=== PATIENT | male | born 1965 | race Caucasian/White ===

== ENCOUNTER 2017-10-17 13:35 | Emergency (ER) | END 2017-10-17 21:37 | disposition home or self-care (01) ==

== ENCOUNTER 2018-09-04 08:46 | Inpatient (IN) | payer OTHER ==
[~2018-09-04] VITALS: Ht 165.1 cm; Wt 65.0 kg
[~2018-09-04 08:46] MED LIST: BENZ-6 PO; FER325 PO; FOLI-49 PO; IBUP-1542 PO; MECL25TA2 PO; PANT40TA4 PO; PROP20TA4 PO; SPIR100T4 PO; THIA100T56 PO
[2018-09-04] MEDS ORDERED: SOD CHLORIDE 0.9% 1,000 ML IV STA (08:54)
[2018-09-04] MEDS ORDERED: LORAZEPAM 2 MG INJ IV ONE (09:00)
[2018-09-04] MEDS ORDERED: ONDANSETRON 4 MG INJ IV PRN ×2 (12:00→16:00)
[2018-09-04] MEDS ORDERED: LACTULOSE 30ML CUP PO ONE (12:00)
[2018-09-04] MEDS ORDERED: ACETAMINOPHEN 325 MG TAB PO PRN (12:00)
--- NOTE | 2018-09-04 13:32 | ERD ---
ER Documentation Chief Complaint Chief Complaint BIB RA FOR EVAL OF GENERALIZED WEAKNESS. PT A&OX4 HPI Patient is a 52-year-old male with coronary disease who presents with weakness. The patient has had weakness for the past 3 days. He was brought in by ambulance. He came from the street as he is homeless. A bystander called 911. He feels weak all over. He says "I could not get up". He denies alcohol use. He was recently admitted and was discharged from the hospital yesterday. Upon review of old medical records this is the patient's sixth visit to the ER since 2011. He does not remember the name of his primary doctor. ROS All systems reviewed and are negative except as per history of present illness. Medications Home Meds Active Scripts Spironolactone* (Spironolactone*) 100 Mg Tablet, 100 MG PO DAILY for 30 Days, TAB Prov:TIERRA FREEMAN 09/03/18 Propranolol Hcl* (Propranolol Hcl*) 20 Mg Tablet, 20 MG PO TID for 30 Days, TAB Prov:TIERRA FREEMAN 09/03/18 Pantoprazole* (Pantoprazole*) 40 Mg Tablet.dr, 40 MG PO DAILY for 30 Days Prov:TIERRA FREEMAN 09/03/18 Thiamine* (Vitamin B-1*) 100 Mg Tablet, 100 MG PO DAILY for 30 Days, TAB Prov:NATHANIEL ESCOBAR 01/08/16 Meclizine Hcl* (Antivert*) 25 Mg Tablet, 25 MG PO TID, #60 TAB Prov:NATHANIEL ESCOBAR 01/08/16 Folic Acid* (Folic Acid*) 1 Mg Tablet, 1 MG PO DAILY for 30 Days, TAB Prov:NATHANIEL ESCOBAR 01/08/16 Ferrous Sulfate* (Ferrous Sulfate*) 325 Mg Tabec, 325 MG PO TID for 30 Days, TAB Prov:NATHANIEL ESCOBAR 01/08/16 Discontinued Reported Medications Acetaminophen/Hydrocodone (Vicodin) 1 Tab Tab, 1 TAB PO PRN 12/02/11 Discontinued Scripts Benzonatate* (Tessalon Perle*) 100 Mg Capsule, 100 MG PO Q8H PRN for COUGH for 3 Days, #10 CAP Prov:IRAM,FRANCY 10/17/17 Ibuprofen* (Motrin*) 600 Mg Tab, 600 MG PO Q6, #30 TAB Prov:IRAM,FRANCY 10/17/17 Azithromycin* (Zithromax*) 250 Mg Tablet, 250 MG PO .EDGARD DIRECTED, #6 TAB TAKE 500 MG (2 TABS) THE FIRST DAY THEN 250 MG (1 TAB) DAYS 2-5 Prov:IRAM,FRANCY 10/17/17 Clarithromycin* (Clarithromycin*) 500 Mg Tablet, 500 MG PO BID for 2 Days, TAB Prov:SADEORA,NATHANIEL 01/08/16 Amoxicillin* (Amoxicillin*) 500 Mg Cap, 1000 MG PO BID for 2 Days, CAP Prov:SADEORA,NATHANIEL 01/08/16 Allergies Allergies: Coded Allergies: No Known Allergy (Unverified , 09/04/18) PMhx/Soc History of Surgery: No Anesthesia Reaction: No Hx Neurological Disorder: No Hx Respiratory Disorders: No Hx Cardiac Disorders: No Hx Psychiatric Problems: No Hx Miscellaneous Medical Probl: Yes (ALCOHOLIC LIVER CIRRHOSIS) Hx Alcohol Use: Yes Hx Substance Use: Yes (MARIJUANA) Hx Tobacco Use: Yes Smoking Status: Current every day smoker FmHx Family History: No diabetes Physical Exam Vitals Vital Signs Date Temp Pulse Resp B/P (MAP) Pulse Ox O2 O2 Flow FiO2 Time Delivery Rate 09/04/18 97.6 98 15 104/62 100 Room Air 12:38 (76) 09/04/18 97.2 94 16 114/66 99 Room Air 10:46 (82) 09/04/18 97.2 89 16 124/70 99 08:57 (88) Physical Exam Const: Confused Head: Atraumatic Eyes: Normal Conjunctiva ENT: Normal External Ears, Nose and Mouth. Neck: Full range of motion. No meningismus. Resp: Clear to auscultation bilaterally Cardio: Regular rate and rhythm, no murmurs Abd: Soft, non tender, non distended. Normal bowel sounds Skin: No petechiae or rashes Back: No midline or flank tenderness Ext: No cyanosis, or edema Neur: Awake but confused, moves all 4 extremities Result Diagram: 09/04/18 0910 09/04/18 0910 Results 24 hrs Laboratory Tests Test 09/04/18 09:10 09/04/18 10:30 White Blood Count 9.4 10^3/ul Red Blood Count 3.36 10^6/ul Hemoglobin 10.6 g/dl Hematocrit 32.3 % Mean Corpuscular Volume 96.1 fl Mean Corpuscular Hemoglobin 31.5 pg Mean Corpuscular Hemoglobin Concent 32.8 g/dl Red Cell Distribution Width 17.3 % Platelet Count 69 10^3/UL Mean Platelet Volume 9.4 fl Immature Granulocytes % 0.400 % Neutrophils % 78.2 % Segmented Neutrophils % (Manual) 85 % Band Neutrophils % (Manual) 7 % Lymphocytes % 7.3 % Lymphocytes % (Manual) 3 % Monocytes % 13.8 % Monocytes % (Manual) 4 % Eosinophils % 0.0 % Basophils % 0.3 % Basophils % (Manual) 1 % Nucleated Red Blood Cells % 0.0 /100WBC Immature Granulocytes # 0.040 10^3/ul Neutrophils # 7.4 10^3/ul Neutrophils # (Manual) 8.0 10^3/ul Band Neutrophils # 0.6 10^3/ul Lymphocytes (Manual) 0.2 10^3/ul Lymphocytes # 0.7 10^3/ul Monocytes # 1.3 10^3/ul Monocytes # (Manual) 0.3 10^3/ul Eosinophils # 0.0 10^3/ul Basophils # 0.0 10^3/ul Basophils # (Manual) 0.0 10^3/ul Nucleated Red Blood Cells # 0.0 10^3/ul Platelet Estimate SIG DECREASED Polychromasia 3+ Poikilocytosis 1+ Anisocytosis 2+ Macrocytosis 2+ Target Cells 1+ Prothrombin Time 20.0 Sec Prothrombin Time Ratio 1.6 INR International Normalized Ratio 1.69 Activated Partial Thromboplast Time 41.1 Sec Sodium Level 138 mmol/L Potassium Level 4.4 mmol/L Chloride Level 106 mmol/L Carbon Dioxide Level 19 mmol/L Anion Gap 13 Blood Urea Nitrogen 16 mg/dl Creatinine 0.75 mg/dl Est Glomerular Filtrat Rate mL/min > 60 mL/min Glucose Level 91 mg/dl Calcium Level 9.2 mg/dl Troponin I 0.012 ng/ml Triglycerides Level 60 mg/dl Cholesterol Level 155 mg/dl LDL Cholesterol, Calculated 113 mg/dl HDL Cholesterol 30 mg/dl Cholesterol/HDL Ratio 5.1 RATIO Hemoglobin A1c 4.5 % Ammonia 41 umol/l Ethyl Alcohol Level < 10.0 mg/dl Current Medications Medications Dose Sig/Dequan Start Time Status Last (Trade) Ordered Route PRN Stop Time Admin Dose Reason Admin Sodium 1,000 ml @ Q1H STAT 09/04/18 DC 09/04/18 Chloride 1,000 mls/hr IV 08:54 09/04/18 09:20 09:53 Lorazepam 1 mg ONCE ONCE 09/04/18 DC 09/04/18 (Ativan) IV 09:00 09/04/18 09:19 09:01 Lactulose 20 gm ONCE ONCE 09/04/18 DC 09/04/18 (Enulose) PO 12:00 09/04/18 12:36 12:01 Ondansetron 4 mg BRIDGE ORDER 09/04/18 HCl (Zofran PRN IV 12:00 09/05/18 Inj) NAUSEA/VOMITI 11:59 NG 650 mg ER BRIDGE 09/04/18 Acetaminophen PRN PO 12:00 09/05/18 (Tylenol .MILD PAIN 11:59 Tab) 1-3 OR TEMP Procedures/MDM EKG read by me: Rate/Rhythm: Regular rate and rhythm at a normal rate Intervals: Normal Impression: No evidence of ischemia or arrhythmia CT brain read by radiology. Patient is a 52-year-old male with coronary disease who presents with weakness. He was found to have hyperammonemia likely related to his cirrhosis. I believe this is likely the cause of the patient's weakness and confusion. The patient was given lactulose. He will be admitted to the care of the panel team to a medical surgical inpatient bed. He can return for any worsening symptoms. I doubt sepsis or intra-cranial bleed or mass. Departure Diagnosis: Primary Impression: Hyperammonemia Additional Impression: Acute weakness Condition: DALE Farris MD Sep 04, 2018 13:32
[2018-09-04 15:17] VITALS: Ht 165.1 cm; Wt 65.0 kg
[2018-09-04 15:41] VITALS: BP 100/55; RESP 21
[2018-09-04] MEDS ORDERED: CHLORDIAZEPOXIDE 25 MG CAP PO SCH (16:00)
[2018-09-04] MEDS ORDERED: ZOLPIDEM 5 MG TAB PO PRN (16:00)
--- NOTE | 2018-09-04 16:41 | HP ---
DATE OF ADMISSION: 09/04/2018 PRESENTING COMPLAINT: Severe lethargy and alteration in mental status. HISTORY OF PRESENTING COMPLAINT: Mr. Slade Harris is a 52-year-old male who was discharged from [facility] yesterday per his request after he had presented with chest pain and was worked up extensivel y for that. Of note is that the patient is a chronic alcoholic, homeless with hepatic cirrhosis and while he was in-house the last time, he underwent a stress test that was negative for reversible defi cits. He also underwent paracentesis, for which they got 5 liters of fluid. They attempted to place him in a residential, but the patient declined this and he requested to return to the streets with homel ess state. At the time of discharge per documentation, the patient was advised to follow upon discha e due to the fact that he was still somewhat debilitated, but he chose to leave. Today, 911 was ca lled by a bystander who found him lying on the street per my understanding. The patient was confused and lethargic. At this time, he is unable to give me a lot of information due to severe lethargy. He will arouse though with significant stimulation, answer questions with 1 word but that is as far w e can get. From my standing, since the patient just left the hospital yesterday, there has been no h istory of recent fever, no cough, no shortness of breath. PAST MEDICAL HISTORY: 1. Hypertension. 2. Alcoholic liver cirrhosis. 3. Chronic thrombocytopenia. 4. Recurrent ascites. 5. Homelessness. 6. Debility. PAST SURGICAL HISTORY: None. ALLERGIES: THE PATIENT HAS NO KNOWN DRUG ALLERGIES. SOCIAL HISTORY: Positive for alcohol abuse, though the patient states that his last drink according to director social's notes was just about a month ago. HOME MEDICATIONS: Reviewed and reconciled. PHYSICAL EXAMINATION VITAL SIGNS: Temperature 97.6, pulse 98, respirations 16, blood pressure 104/62, saturations 100% on room air. GENERAL: Lethargic but arousable. Once aroused, oriented to self, place and person, but falls back to sleep very easily. HEENT: Head is normocephalic without evidence of trauma. Pupils are equal and reactive. There is p ositive scleral icterus. Mild conjunctival pallor. Mucous membranes are moist. Posterior pharynx i s clear of erythema or exudate. NECK: Supple without JVD or adenopathy. CHEST: Diminished breath sounds, but clear to auscultation. ABDOMEN: Mildly distended, soft, does not seem overtly tender. Hypoactive bowel sounds. EXTREMITIES: Positive for edema bilaterally, mild. PSYCHIATRIC: Calm, cooperative with exam. NEUROLOGIC: Lethargic, gait not assessed. The patient was noted to move all 4 extremities spontaneo usly. SKIN: Mildly jaundiced. LABORATORY VALUES: Today, basic metabolic profile was unremarkable. Ammonia level was high at 41. On his hematology, there are no acute findings from yesterday. He has a chronic normocytic anemia wi th chronic thrombocytopenia. However, there is bandemia and neutrophil predominance noted on the shahla dies from today. IMAGING STUDIES: A chest x-ray that was done in the emergency room shows mild left basilar atelectas is and a CT scan of the brain shows no acute pathology, chronic microvascular ischemic changes and ch ronic calcification in the fourth ventricle consistent with sequelae of neurocysticercosis. DIAGNOSTIC DATA: EKG: Normal sinus rhythm. ASSESSMENT: 1. Severe lethargy and alteration in mental status likely secondary to hepatic encephalopathy. 2. Rule out underlying left lower lobe pneumonia in the setting of neutrophilia and bandemia, which could also be related to aspiration. 3. Chronic alcoholic cirrhosis with chronic thrombocytopenia, mild jaundice and coagulopathy. 4. Homeless. 5. Chronic lethargy and debility. PLAN: The patient is to be admitted, treated for hepatic encephalopathy with lactulose therapy. I w ill hold off on antibiotics for now as I do not have concrete signs of infection and just monitor sym ptomatically blood and urine cultures. Lactulose therapy may precipitate diarrhea; however the patient had just recently been hospitalized so we will order a C. diff assay if patient does develop that. Keep him n.p.o. for now, get a speech therapy as well as physical therapy evaluation prior to commencing diet. Resume his home medications as tolerated. Further interventions will depend on hi s clinical course. We will also provide a banana bag supplementation as well. This plan of care been reviewed with nursing staff in detail. Questions have been answered. Dictated By: AJAY SAUCEDA MD, BA/NTS Conf#: [id number] DID#: [id number] CC: PITER [employer]ATHERS;*End*
[2018-09-04] MEDS ORDERED: MULTIVITAMINS 10 ML, THIAMINE 100 MG, FOLIC ACID 1 MG in SOD CHLORIDE 0.9% 1,000 ML IVPB SCH (17:00)
[2018-09-04] MEDS: FAMOTIDINE 20 MG INJ IV SCH (17:06)
[2018-09-04] MEDS: LACTULOSE 30ML CUP PO SCH (17:06)
[2018-09-04] MEDS: DOCUSATE SODIUM 100 MG CAP PO SCH (17:06)
[2018-09-04 20:00] VITALS: BP 127/59; PULSE 94; RESP 20
[2018-09-05] MEDS: FAMOTIDINE 20 MG INJ IV SCH (00:18)
[2018-09-05] MEDS: DEXTROSE 5%-0.45% NACL 1,000 ML IV SCH ×4 (00:18→23:00)
[2018-09-05] MEDS: LACTULOSE 30ML CUP PO SCH ×4 (00:18→17:49)
[2018-09-05] MEDS: DOCUSATE SODIUM 100 MG CAP PO SCH ×3 (00:18→21:00)
[2018-09-05 02:00] VITALS: BP 118/72; PULSE 99; RESP 18
[2018-09-05] MEDS: PANTOPRAZOLE (EC) 40 MG TAB PO SCH (06:17)
[2018-09-05 08:00] VITALS: BP 98/56; PULSE 91; RESP 18
[2018-09-05] MEDS: THIAMINE 100 MG TAB PO SCH (08:55)
[2018-09-05] MEDS: MULTIVITAMINS THERAPEUTIC TAB PO SCH (08:55)
[2018-09-05] MEDS: FOLIC ACID 1 MG TAB PO SCH (08:55)
[2018-09-05] MEDS ORDERED: INFLUENZA VIRUS VACCINE 0.5 ML (DISPENSING) IM* ONE (09:00)
[2018-09-05] MEDS ORDERED: POTASSIUM CHLORIDE (SR) 20 MEQ TAB PO STA (12:23)
--- NOTE | 2018-09-05 12:28 | PN ---
Date/Time of Note Date/Time of Note DATE: 09/05/18 TIME: 12:25 Assessment/Plan VTE [place] [facility] [place]: 3 [place] [facility] [place] SCD contraindicated: patient refusal Pharmacological prophylaxis: heparin Lines/Catheters IV Catheter Type (from [facility]): Peripheral IV Urinary Cath still in place: No Assessment/Plan Problems: (1) Hyperammonemia Status: Acute Comment: Improving with usage of lactulose which is loosening his bowels. (2) Acute weakness Status: Acute Comment: Persistent. He is going to need placement (3) Essential hypertension Status: Chronic Comment: Presently with adequate control. He is off of blood pressure medications if we need to go back on I would use an agent such as nadolol which can also be useful in portal hypertension (4) Debility Status: Chronic Comment: Trying to get him over the sequelae of his alcoholism (5) Alcoholic cirrhosis of liver with ascites Status: Chronic Comment: Noted. (6) Avascular necrosis of bone of left hip Status: Chronic Comment: This is noted in several prior x-rays. I will go ahead and get a regular films believe looked at it directly (7) Cholelithiasis Status: Chronic Comment: Noted. Consideration for HIDA scan in a few days when the patient is feeling better Qualifiers: Cholelithiasis location: gallbladder Cholecystitis presence: without cholecystitis Biliary obstruction: without biliary obstruction Qualified Codes: K80.20 - Calculus of gallbladder without cholecystitis without obstruction (8) Homeless single person Status: Chronic Comment: Social service to assist (9) Alcohol abuse Status: Chronic Comment: Social service to assist. Result Diagram: 09/05/18 0542 09/05/18 0541 Results 24hrs Laboratory Tests Test 09/04/18 16:01 09/05/18 05:41 09/05/18 05:42 Lactic Acid Level 2.0 Sodium Level 139 Potassium Level 3.2 L Chloride Level 109 Carbon Dioxide Level 22 Anion Gap 8 Blood Urea Nitrogen 11 Creatinine 0.66 Est Glomerular Filtrat Rate mL/min > 60 Glucose Level 105 Calcium Level 8.6 Phosphorus Level 3.3 Magnesium Level 1.2 L Total Bilirubin 1.3 Direct Bilirubin 0.10 Indirect Bilirubin 1.2 H Aspartate Amino Transf (AST/SGOT) 101 H Alanine Aminotransferase (ALT/SGPT) 33 Alkaline Phosphatase 100 Ammonia 26 Total Protein 6.4 Albumin 2.3 L Globulin 4.10 H Albumin/Globulin Ratio 0.56 White Blood Count 4.3 #L Red Blood Count 2.86 L Hemoglobin 9.0 L Hematocrit 26.3 L Mean Corpuscular Volume 92.0 Mean Corpuscular Hemoglobin 31.5 Mean Corpuscular Hemoglobin Concent 34.2 Red Cell Distribution Width 17.2 H Platelet Count 66 L Mean Platelet Volume 9.4 Immature Granulocytes % 0.200 Neutrophils % 68.2 Lymphocytes % 16.8 Monocytes % 12.9 H Eosinophils % 1.4 Basophils % 0.5 Nucleated Red Blood Cells % 0.0 Immature Granulocytes # 0.010 Neutrophils # 2.9 Lymphocytes # 0.7 L Monocytes # 0.6 Eosinophils # 0.1 Basophils # 0.0 Nucleated Red Blood Cells # 0.0 Subjective 24 Hr Interval Summary Free Text/Dictation Patient sleeping in bed is able to open his eyes and say hello to me but declines to have much more interview Constitutional: no complaints Exam/Review of Systems Exam Vitals Vital Signs Date Temp Pulse Resp B/P (MAP) Pulse Ox O2 O2 Flow FiO2 Time Delivery Rate 09/05/18 98.0 91 18 98/56 (70) 100 Room Air 08:00 Intake and Output 09/04/18 09/04/18 09/05/18 1414:59 22:59 06:59 IntakeIntake Total 1000 ml BalanceBalance 1000 ml Head: normocephalic, atraumatic Respiratory: clear to auscultation, normal air movement Cardiovascular: regular rate and rhythm, nl pulses Gastrointestinal: soft, nl liver, spleen, non-tender Results Results 24hrs Laboratory Tests Test 09/04/18 16:01 09/05/18 05:41 09/05/18 05:42 Lactic Acid Level 2.0 Sodium Level 139 Potassium Level 3.2 L Chloride Level 109 Carbon Dioxide Level 22 Anion Gap 8 Blood Urea Nitrogen 11 Creatinine 0.66 Est Glomerular Filtrat Rate mL/min > 60 Glucose Level 105 Calcium Level 8.6 Phosphorus Level 3.3 Magnesium Level 1.2 L Total Bilirubin 1.3 Direct Bilirubin 0.10 Indirect Bilirubin 1.2 H Aspartate Amino Transf (AST/SGOT) 101 H Alanine Aminotransferase (ALT/SGPT) 33 Alkaline Phosphatase 100 Ammonia 26 Total Protein 6.4 Albumin 2.3 L Globulin 4.10 H Albumin/Globulin Ratio 0.56 White Blood Count 4.3 #L Red Blood Count 2.86 L Hemoglobin 9.0 L Hematocrit 26.3 L Mean Corpuscular Volume 92.0 Mean Corpuscular Hemoglobin 31.5 Mean Corpuscular Hemoglobin Concent 34.2 Red Cell Distribution Width 17.2 H Platelet Count 66 L Mean Platelet Volume 9.4 Immature Granulocytes % 0.200 Neutrophils % 68.2 Lymphocytes % 16.8 Monocytes % 12.9 H Eosinophils % 1.4 Basophils % 0.5 Nucleated Red Blood Cells % 0.0 Immature Granulocytes # 0.010 Neutrophils # 2.9 Lymphocytes # 0.7 L Monocytes # 0.6 Eosinophils # 0.1 Basophils # 0.0 Nucleated Red Blood Cells # 0.0 Medications Medication Current Medications Dextrose/Sodium Chloride 1,000 ml @ 125 mls/hr Q8H IV Last administered on 09/05/18at 08:55; Admin Dose 125 MLS/HR; Start 09/04/18 at 23:00 Ondansetron HCl (Zofran Inj) 4 mg Q6H PRN IV NAUSEA/VOMITING; Start 09/04/18 at 16:00 Acetaminophen (Tylenol Tab) 650 mg Q6H PRN PO .PAIN 1-3 OR TEMP; Start 09/04/18 at 16:00 Docusate Sodium (Colace) 100 mg Q12 PO Last administered on 09/05/18at 08:55; Admin Dose 100 MG; Start 09/04/18 at 16:00 Zolpidem Tartrate (Ambien) 5 mg QHS PRN PO .INSOMNIA; Start 09/04/18 at 16:00 Pantoprazole (Protonix Tab) 40 mg DAILY@06 PO Last administered on 09/05/18at 06:17; Admin Dose 40 MG; Start 09/05/18 at 06:00 Lorazepam (Ativan) 1 mg Q6H PRN IV agitation / anxiety; Start 09/04/18 at 16:00 Lactulose (Enulose) 20 gm Q6 PO Last administered on 09/05/18at 06:17; Admin Dose 20 GM; Start 09/04/18 at 18:00 Folic Acid (Folic Acid) 1 mg DAILY PO Last administered on 09/05/18at 08:55; Admin Dose 1 MG; Start 09/05/18 at 09:00 Thiamine HCl (Vitamin B1) 100 mg DAILY PO Last administered on 09/05/18at 08:55; Admin Dose 100 MG; Start 09/05/18 at 09:00; Stop 09/12/18 at 08:59 Multivitamins Therapeutic (Theragran) 1 tab DAILY PO Last administered on 09/05/18at 08:55; Admin Dose 1 TAB; Start 09/05/18 at 09:00 Potassium Chloride (Klor-Con 20) 40 meq ONCE STAT PO ; Start 09/05/18 at 12:23; Stop 09/05/18 at 12:24 Potassium Chloride 100 ml @ 50 mls/hr Q2H IVPB ; Start 09/05/18 at 12:30; Stop 09/05/18 at 16:29; Status UNNAY HOPKINS MD Sep 05, 2018 12:28
[2018-09-05 14:00] VITALS: BP 105/60; PULSE 90; RESP 19
[2018-09-05] MEDS: POTASSIUM CHLORIDE 100 ML IVPB SCH ×2 (14:49→17:49)
[2018-09-05] MEDS ORDERED: CHLORDIAZEPOXIDE 25 MG CAP PO SCH (18:00)
[2018-09-05 20:00] VITALS: BP_SYST 114; BP_SYST 144; BP_DIAS 6; BP_DIAS 69; PULSE 97; RESP 17; RESP 18
[2018-09-06] MEDS: LACTULOSE 30ML CUP PO SCH ×5 (01:10→23:15)
[2018-09-06 02:00] VITALS: BP 97/54; PULSE 90; RESP 18
[2018-09-06] MEDS: PANTOPRAZOLE (EC) 40 MG TAB PO SCH (06:29)
[2018-09-06] MEDS: DEXTROSE 5%-0.45% NACL 1,000 ML IV SCH ×3 (07:00→23:15)
[2018-09-06 07:55] VITALS: BP 119/58; PULSE 103; RESP 18
[2018-09-06] MEDS: MULTIVITAMINS THERAPEUTIC TAB PO SCH (10:21)
[2018-09-06] MEDS: FOLIC ACID 1 MG TAB PO SCH (10:21)
[2018-09-06] MEDS: DOCUSATE SODIUM 100 MG CAP PO SCH ×2 (10:21→20:08)
[2018-09-06] MEDS: THIAMINE 100 MG TAB PO SCH (10:21)
--- NOTE | 2018-09-06 13:23 | PN ---
Date/Time of Note Date/Time of Note DATE: 09/06/18 TIME: 13:22 Assessment/Plan VTE Prophylaxis Risk score (from [facility] [place]0 risk: 3 SCD applied (from [facility] [place] No SCD contraindicated: patient refusal Pharmacological prophylaxis: NA/contraindicated Pharm contraindication: blood coag disorder Lines/Catheters IV C[facility]ter Type [facility]from [facility] Mid Line Urinary Cath still in place: No Assessment/Plan Problems: (1) Alcoholic cirrhosis of liver with ascites Status: Chronic Comment: Improving a little bit. Initiate nadolol for portal hypertension at low-dose. (2) Acute weakness Status: Acute Comment: A little bit better. I will try and get him pumped (3) Essential hypertension Status: Chronic Comment: Low-dose nadolol (4) Avascular necrosis of bone of left hip Status: Chronic Comment: Noted. Result Diagram: 09/05/18 0542 09/06/18 0524 Results 24hrs Laboratory Tests Test 09/06/18 03:30 09/06/18 05:24 Urine Opiates Screen Positive Urine Barbiturates Negative Urine Amphetamines Screen Negative Urine Benzodiazepines Screen Positive Urine Cocaine Screen Negative Urine Cannabinoids Positive Sodium Level 140 Potassium Level 4.1 Chloride Level 113 H Carbon Dioxide Level 21 Anion Gap 6 Blood Urea Nitrogen 10 Creatinine 0.75 Est Glomerular Filtrat Rate mL/min > 60 Glucose Level 94 Calcium Level 8.7 Ammonia 30 Subjective 24 Hr Interval Summary Free Text/Dictation Patient reports he is feeling a little bit better today. Constitutional: no complaints Respiratory: no complaints Cardiovascular: no complaints Gastrointestinal: no complaints Genitourinary: no complaints Exam/Review of Systems Exam Vitals Vital Signs Date Temp Pulse Resp B/P (MAP) Pulse Ox O2 O2 Flow FiO2 Time Delivery Rate 09/06/18 98.9 103 18 119/58 99 Room Air 07:55 (78) Intake and Output 09/05/18 09/05/18 09/06/18 1515:00 23:00 07:00 IntakeIntake Total 1000 ml 1100 ml 110 ml BalanceBalance 1000 ml 1100 ml 110 ml Constitutional: alert, oriented Respiratory: clear to auscultation, normal air movement Cardiovascular: regular rate and rhythm, nl pulses Results Results 24hrs Laboratory Tests Test 09/06/18 03:30 09/06/18 05:24 Urine Opiates Screen Positive Urine Barbiturates Negative Urine Amphetamines Screen Negative Urine Benzodiazepines Screen Positive Urine Cocaine Screen Negative Urine Cannabinoids Positive Sodium Level 140 Potassium Level 4.1 Chloride Level 113 H Carbon Dioxide Level 21 Anion Gap 6 Blood Urea Nitrogen 10 Creatinine 0.75 Est Glomerular Filtrat Rate mL/min > 60 Glucose Level 94 Calcium Level 8.7 Ammonia 30 Medications Medication Current Medications Dextrose/Sodium Chloride 1,000 ml @ 125 mls/hr Q8H IV Last administered on 09/05/18 17:51; Admin Dose 125 MLS/HR; Start 09/04/18 at 23:00 Ondansetron HCl (Zofran Inj) 4 mg Q6H PRN IV NAUSEA/VOMITING; Start 09/04/18 at 16:00 Acetaminophen (Tylenol Tab) 650 mg Q6H PRN PO .PAIN 1-3 OR TEMP; Start 09/04/18 at 16:00 Docusate Sodium (Colace) 100 mg Q12 PO Last administered on 09/06/18at 10:21; Admin Dose 100 MG; Start 09/04/18 at 16:00 Zolpidem Tartrate (Ambien) 5 mg QHS PRN PO .INSOMNIA; Start 09/04/18 at 16:00 Pantoprazole (Protonix Tab) 40 mg DAILY@06 PO Last administered on 09/06/18at 06:29; Admin Dose 40 MG; Start 09/05/18 at 06:00 Lorazepam (Ativan) 1 mg Q6H PRN IV agitation / anxiety; Start 09/04/18 at 16:00 Lactulose (Enulose) 20 gm Q6 PO Last administered on 09/06/18 06:29; Admin Dose 20 GM; Start 09/04/18 at 18:00 Folic Acid (Folic Acid) 1 mg DAILY PO Last administered on 09/06/18 10:21; Admin Dose 1 MG; Start 09/05/18 at 09:00 Thiamine HCl (Vitamin B1) 100 mg DAILY PO Last administered on 09/06/18 10:21; Admin Dose 100 MG; Start 09/05/18 at 09:00; Stop 09/12/18 at 08:59 Multivitamins Therapeutic (Theragran) 1 tab DAILY PO Last administered on 09/06/18 10:21; Admin Dose 1 TAB; Start 09/05/18 at 09:00 NAY BRYANT MD Sep 06, 2018 13:23
[2018-09-06] MEDS: LORAZEPAM 2 MG INJ IV PRN ×2 (13:42→23:18)
[2018-09-06 14:00] VITALS: BP 134/64; PULSE 117; RESP 18
[2018-09-06] MEDS ORDERED: CYANOCOBALAMIN 1000 MCG INJ IM ONE (14:30)
[2018-09-06] MEDS ORDERED: TESTOSTERONE CYPIONATE 200 MG/ML INJ IM ONE (14:30)
[2018-09-06] MEDS: NADOLOL 40 MG TAB PO SCH (15:12)
[2018-09-06 20:48] VITALS: BP 107/59; PULSE 95; RESP 18
[2018-09-06 21:55] VITALS: BP 125/71; PULSE 90; RESP 18
[2018-09-06] MEDS ORDERED: CHLORDIAZEPOXIDE 25 MG CAP PO SCH (22:00)
[2018-09-06] MEDS: ACETAMINOPHEN 325 MG TAB PO PRN (23:22)
[2018-09-07 01:44] VITALS: BP 105/50; PULSE 82; RESP 17
[2018-09-07] MEDS: PANTOPRAZOLE (EC) 40 MG TAB PO SCH (05:12)
[2018-09-07] MEDS: LACTULOSE 30ML CUP PO SCH ×3 (05:12→20:04)
[2018-09-07] MEDS: DEXTROSE 5%-0.45% NACL 1,000 ML IV SCH ×4 (06:28→22:42)
[2018-09-07] MEDS ORDERED: LORAZEPAM 2 MG INJ IV ONE (07:00)
[2018-09-07 08:07] VITALS: BP 116/59; PULSE 94; RESP 18
[2018-09-07] MEDS: DOCUSATE SODIUM 100 MG CAP PO SCH ×2 (08:53→20:04)
[2018-09-07] MEDS: MULTIVITAMINS THERAPEUTIC TAB PO SCH (08:53)
[2018-09-07] MEDS: CHLORDIAZEPOXIDE 25 MG CAP PO SCH ×4 (08:53→20:04)
[2018-09-07] MEDS: FOLIC ACID 1 MG TAB PO SCH (08:53)
[2018-09-07] MEDS: THIAMINE 100 MG TAB PO SCH (08:53)
[2018-09-07] MEDS: ACETAMINOPHEN 325 MG TAB PO PRN (08:54)
[2018-09-07] MEDS: NADOLOL 40 MG TAB PO SCH (08:55)
[2018-09-07] MEDS: LORAZEPAM 2 MG INJ IV PRN ×2 (11:01→15:42)
--- NOTE | 2018-09-07 13:15 | PN ---
Date/Time of Note Date/Time of Note DATE: 09/07/18 TIME: 13:15 Assessment/Plan VTE Prophylaxis Risk score (from [facility] [place])>0 risk: 2 SCD applied (from [facility] [place]): Yes Pharmacological prophylaxis: NA/contraindicated Pharm contraindication: liver dx Lines/Catheters IV Catheter Type (from [email or web address] Mid Line Urinary Cath still in place: No Assessment/Plan Hospital Course SUBJECTIVE: Lying in bed, drowsy. Distended abdomen. Patient received a dose of Ativan secondary to withdrawal in the morning. Patient also had a temperature 103.1 in the morning. OBJECTIVE: Vital signs-see below PHYSICAL EXAM: Constitutional: Disheveled male, lying in bed, drowsy. Psych: nl mood/affect, no complaints Head: atraumatic, normocephalic Eyes: nl conjunctiva, nl sclera ENMT: mucosa pink and moist, nl external ears & nose Neck: non-tender, supple Respiratory: clear to auscultation, normal air movement Cardiovascular: nl pulses, regular rate and rhythm Gastrointestinal: +Distended abdomen. non-tender, bowel sounds active in all 4 quadrants. Musculoskeletal/extremities: nl extremities to inspection, motor strength equal bilaterally, no focal deficit. Normal pulses,no cyanosis, no edema. Neurological: Alert oriented 2,nl speech, nl strength Skin: nl turgor ASSESSMENT/PLAN: 52-year-old homeless male with alcoholism, alcoholic liver cirrhosis, ascites, since abuse, here with altered mental status. 1. Hepatic encephalopathy -We will start IV thiamine supplementation. Continue lactulose dose. -We will also add rifaximin. 2. Alcoholic liver disease with ascites +Abd distention -Obtain ultrasound to rule out ascites and paracentesis if indicated. -Start Lasix and Aldactone. -Continue Corgard -2 g sodium diet 3.Essential hypertension Status: Chronic Comment: Low-dose nadolol 4. Anemia of alcoholic liver disease. -Stable H&H. Continue to monitor. 5. Alcohol abuse -Advised on cessation. well service floor worker to see patient. 6. Homelessness -well service floor worker follow-up 7. Substance abuse -Urine toxicology positive for cannabinoids and alcohol. -Cessation advised 8. SIRS -Documented temperature 103.1 this morning. Obtain urine, blood cultures. Follow-up ultrasound studies for ascites to rule out SBP. -Empiric Zosyn. DVT prophylaxis: SCDs/ambulation PUD prophylaxis: Protonix Patient was seen in collaboration with Result Diagram: 09/07/18 0616 09/07/18 0620 Results 24hrs Laboratory Tests Test 09/07/18 06:16 09/07/18 06:20 White Blood Count 10.7 # Red Blood Count 3.03 L Hemoglobin 9.8 L Hematocrit 29.2 L Mean Corpuscular Volume 96.4 Mean Corpuscular Hemoglobin 32.3 Mean Corpuscular Hemoglobin Concent 33.6 Red Cell Distribution Width 17.6 H Platelet Count 65 L Mean Platelet Volume 10.4 Immature Granulocytes % 0.400 Neutrophils % Segmented Neutrophils % (Manual) 50 Band Neutrophils % (Manual) 39 H Lymphocytes % Lymphocytes % (Manual) 5 L Monocytes % Monocytes % (Manual) 4 Eosinophils % Eosinophils % (Manual) 2 Basophils % Basophils % (Manual) 1 Nucleated Red Blood Cells % 0.0 Immature Granulocytes # 0.040 H Neutrophils # Neutrophils # (Manual) 5.8 Band Neutrophils # 4.1 H Lymphocytes (Manual) 0.5 L Lymphocytes # Monocytes # Monocytes # (Manual) 0.4 Eosinophils # Basophils # Basophils # (Manual) 0.1 H Nucleated Red Blood Cells # Platelet Estimate DECREASED Polychromasia 1+ Poikilocytosis 1+ Anisocytosis 2+ Macrocytosis 2+ Sodium Level 140 Potassium Level 3.8 Chloride Level 113 H Carbon Dioxide Level 20 L Anion Gap 7 Blood Urea Nitrogen 10 Creatinine 0.90 Est Glomerular Filtrat Rate mL/min > 60 Glucose Level 104 Calcium Level 8.2 L Total Bilirubin 1.9 H Direct Bilirubin 0.00 Indirect Bilirubin 1.9 H Aspartate Amino Transf (AST/SGOT) 115 H Alanine Aminotransferase (ALT/SGPT) 43 Alkaline Phosphatase 87 Ammonia 27 Total Protein 6.6 Albumin 2.4 L Globulin 4.20 H Albumin/Globulin Ratio 0.57 Exam/Review of Systems Exam Vitals Vital Signs Date Temp Pulse Resp B/P (MAP) Pulse Ox O2 O2 Flow FiO2 Time Delivery Rate 09/07/18 99.2 09:39 09/07/18 94 18 116/59 93 08:07 (78) 09/07/18 Room Air 01:44 Intake and Output 09/06/18 09/06/18 09/07/18 1515:00 23:00 07:00 IntakeIntake Total 990 ml 750 ml 1000 ml BalanceBalance 990 ml 750 ml 1000 ml Results Results 24hrs Laboratory Tests Test 09/07/18 06:16 09/07/18 06:20 White Blood Count 10.7 # Red Blood Count 3.03 L Hemoglobin 9.8 L Hematocrit 29.2 L Mean Corpuscular Volume 96.4 Mean Corpuscular Hemoglobin 32.3 Mean Corpuscular Hemoglobin Concent 33.6 Red Cell Distribution Width 17.6 H Platelet Count 65 L Mean Platelet Volume 10.4 Immature Granulocytes % 0.400 Neutrophils % Segmented Neutrophils % (Manual) 50 Band Neutrophils % (Manual) 39 H Lymphocytes % Lymphocytes % (Manual) 5 L Monocytes % Monocytes % (Manual) 4 Eosinophils % Eosinophils % (Manual) 2 Basophils % Basophils % (Manual) 1 Nucleated Red Blood Cells % 0.0 Immature Granulocytes # 0.040 H Neutrophils # Neutrophils # (Manual) 5.8 Band Neutrophils # 4.1 H Lymphocytes (Manual) 0.5 L Lymphocytes # Monocytes # Monocytes # (Manual) 0.4 Eosinophils # Basophils # Basophils # (Manual) 0.1 H Nucleated Red Blood Cells # Platelet Estimate DECREASED Polychromasia 1+ Poikilocytosis 1+ Anisocytosis 2+ Macrocytosis 2+ Sodium Level 140 Potassium Level 3.8 Chloride Level 113 H Carbon Dioxide Level 20 L Anion Gap 7 Blood Urea Nitrogen 10 Creatinine 0.90 Est Glomerular Filtrat Rate mL/min > 60 Glucose Level 104 Calcium Level 8.2 L Total Bilirubin 1.9 H Direct Bilirubin 0.00 Indirect Bilirubin 1.9 H Aspartate Amino Transf (AST/SGOT) 115 H Alanine Aminotransferase (ALT/SGPT) 43 Alkaline Phosphatase 87 Ammonia 27 Total Protein 6.6 Albumin 2.4 L Globulin 4.20 H Albumin/Globulin Ratio 0.57 Medications Medication Current Medications Dextrose/Sodium Chloride 1,000 ml @ 125 mls/hr Q8H IV Last administered on 09/07/18at 06:28; Admin Dose 125 MLS/HR; Start 09/04/18 at 23:00 Ondansetron HCl (Zofran Inj) 4 mg Q6H PRN IV NAUSEA/VOMITING; Start 09/04/18 at 16:00 Acetaminophen (Tylenol Tab) 650 mg Q6H PRN PO .PAIN 1-3 OR TEMP Last administered on 09/07/18at 08:54; Admin Dose 650 MG; Start 09/04/18 at 16:00 Docusate Sodium (Colace) 100 mg Q12 PO Last administered on 09/07/18 08:53; Admin Dose 100 MG; Start 09/04/18 at 16:00 Zolpidem Tartrate (Ambien) 5 mg QHS PRN PO .INSOMNIA Last administered on 09/07/18 01:50; Admin Dose 5 MG; Start 09/04/18 at 16:00 Pantoprazole (Protonix Tab) 40 mg DAILY@06 PO Last administered on 09/07/18 05:12; Admin Dose 40 MG; Start 09/05/18 at 06:00 Lactulose (Enulose) 20 gm Q6 PO Last administered on 09/07/18 12:36; Admin Dose 20 GM; Start 09/04/18 at 18:00 Folic Acid (Folic Acid) 1 mg DAILY PO Last administered on 09/07/18 08:53; Admin Dose 1 MG; Start 09/05/18 at 09:00 Thiamine HCl (Vitamin B1) 100 mg DAILY PO Last administered on 09/07/18 08:53; Admin Dose 100 MG; Start 09/05/18 at 09:00; Stop 09/12/18 at 08:59 Multivitamins Therapeutic (Theragran) 1 tab DAILY PO Last administered on 09/07/18 08:53; Admin Dose 1 TAB; Start 09/05/18 at 09:00 Nadolol (Corgard) 40 mg DAILY PO Last administered on 09/07/18 08:55; Admin Dose 40 MG; Start 09/06/18 at 14:00 Lorazepam (Ativan) 1 mg Q4 PRN IV CONTROL WITHDRAWAL SYMPTOMS Last administered on 09/07/18 11:01; Admin Dose 1 MG; Start 09/07/18 at 07:00 Chlordiazepoxide (Librium) 50 mg TID PO Last administered on 09/07/18 12:37; Admin Dose 50 MG; Start 09/07/18 at 09:00; Stop 09/07/18 at 21:01 Chlordiazepoxide (Librium) 25 mg Q6 PO ; Start 09/08/18 at 06:00; Stop 09/09/18 at 00:01 Chlordiazepoxide (Librium) 25 mg TID PO ; Start 09/09/18 at 09:00; Stop 09/09/18 at 21:01 VIRAJ LUU NP Sep 07, 2018 13:15
[2018-09-07 15:03] VITALS: BP 116/58; PULSE 78; RESP 18
--- NOTE | 2018-09-07 15:05 | CONS ---
Assessment/Plan Assessment/Plan Assessment/Plan (Daily) Assessment: Hepatic encephalopathy Alcoholic liver disease with ascites -Thrombocytopenia -Coagulopathy -Normocytic anemia Indirect hyperbilirubinemia elevated Fevers- unclear etiology- patient empirically on Zosyn -Blood cx and urine cx without - no growth -CXR-The lungs are clear of acute infiltrates, edema, effusions, or masses. There is mild left basilar atelectasis. -if + ascites plan for paracentesis to r/o SBP ETOH abuse Marijuana use Hypertension Homelessness -SW consulted Mild flattening and patchy sclerotic changes left femoral head, could be sequela of prior trauma or osteonecrosis. Plan: Abdominal ultrasound has been ordered to assess for ascites- if (+)will proceed with paracentesis Continue Lactulose (titrate to 3-4 BM in a 24 hour period) continue Xifaxan 550 mg po BID Encourage PO intake Further recommendations based on clinical course Patient seen in collaboration with Dr. Gamez CC: ANIKET GAMEZ ; Consultation Date/Type/Reason Admit Date/Time Sep 04, 2018 at 11:46 Date of Consultation: Sep 07, 2018 Type of Consult GI Reason for Consultation Liver cirrhosis Date/Time of Note DATE: 09/07/18 TIME: 14:34 Hx of Present Illness This is a 52-year-old male with medical history of ETOH abuse, and liver cirrhosis. Patient is confused, information obtained from medical records therefore HPI is limited. He was discharged from this facility 09/03/18 extensively work-up for chest pain. Last hospitalization he underwent a paracentesis, 5 liters of fluid was removed. According to records, they attemp francesca to place him in a alf, but patient refused and preferred to go back to the streets. This hospitalization found in confused and lethargic, a bystander called 911. Here in the ED patient found to have an elevated ammonia level. Xifaxin and lactulose have been started. hematology and chemistry panel reflect findings of liver cirrhosis sequela. It is unclear when his last alcoholic beverage was. Pt currently having fevers, urine cx/blood cx without growth. An abd us is pending if positive for ascites will proceed with paracentesis to r/o SBP. Will continue current regimen. Further recommendations based on clinical course. Review of Systems: A 12 system, review was conducted and is negative except as noted in the HPI or here. Past Medical History Home Meds Active Scripts Spironolactone* (Spironolactone*) 100 Mg Tablet, 100 MG PO DAILY for 30 Days, TAB Prov:TIERRA FREEMAN 09/03/18 Propranolol Hcl* (Propranolol Hcl*) 20 Mg Tablet, 20 MG PO TID for 30 Days, TAB Prov:TIERRA FREEMAN 09/03/18 Pantoprazole* (Pantoprazole*) 40 Mg Tablet.dr, 40 MG PO DAILY for 30 Days Prov:TIERRA FREEMAN 09/03/18 Thiamine* (Vitamin B-1*) 100 Mg Tablet, 100 MG PO DAILY for 30 Days, TAB Prov:NATHANIEL ESCOBAR 01/08/16 Meclizine Hcl* (Antivert*) 25 Mg Tablet, 25 MG PO TID, #60 TAB Prov:NATHANIEL ESCOBAR 01/08/16 Folic Acid* (Folic Acid*) 1 Mg Tablet, 1 MG PO DAILY for 30 Days, TAB Prov:NATHANIEL ESCOBAR 01/08/16 Ferrous Sulfate* (Ferrous Sulfate*) 325 Mg Tabec, 325 MG PO TID for 30 Days, TAB Prov:NATHANIEL ESCOBAR 01/08/16 Discontinued Reported Medications Acetaminophen/Hydrocodone (Vicodin) 1 Tab Tab, 1 TAB PO PRN 12/02/11 Discontinued Scripts Benzonatate* (Tessalon Perle*) 100 Mg Capsule, 100 MG PO Q8H PRN for COUGH for 3 Days, #10 CAP Prov:IRAM,FRANCY 10/17/17 Ibuprofen* (Motrin*) 600 Mg Tab, 600 MG PO Q6, #30 TAB Prov:IRAM,FRANCY 10/17/17 Azithromycin* (Zithromax*) 250 Mg Tablet, 250 MG PO .SHANECK DIRECTED, #6 TAB TAKE 500 MG (2 TABS) THE FIRST DAY THEN 250 MG (1 TAB) DAYS 2-5 Prov:IRAM,FRANCY 10/17/17 Clarithromycin* (Clarithromycin*) 500 Mg Tablet, 500 MG PO BID for 2 Days, TAB Prov:NATHANIEL ESCOBAR 01/08/16 Amoxicillin* (Amoxicillin*) 500 Mg Cap, 1000 MG PO BID for 2 Days, CAP Prov:NATHANIEL ESCOBAR 01/08/16 Medications Current Medications Dextrose/Sodium Chloride 1,000 ml @ 125 mls/hr Q8H IV Last administered on 08/28 13:36; Admin Dose 125 MLS/HR; Start 09/04/18 at 23:00 Ondansetron HCl (Zofran Inj) 4 mg Q6H PRN IV NAUSEA/VOMITING; Start 09/04/18 at 16:00 Acetaminophen (Tylenol Tab) 650 mg Q6H PRN PO .PAIN 1-3 OR TEMP Last administered on 09/07/18 08:54; Admin Dose 650 MG; Start 09/04/18 at 16:00 Docusate Sodium (Colace) 100 mg Q12 PO Last administered on 09/07/18 08:53; Admin Dose 100 MG; Start 09/04/18 at 16:00 Zolpidem Tartrate (Ambien) 5 mg QHS PRN PO .INSOMNIA Last administered on 09/07/18 01:50; Admin Dose 5 MG; Start 09/04/18 at 16:00 Pantoprazole (Protonix Tab) 40 mg DAILY@06 PO Last administered on 09/07/18 05:12; Admin Dose 40 MG; Start 09/05/18 at 06:00 Nadolol (Corgard) 40 mg DAILY PO Last administered on 09/07/18at 08:55; Admin Dose 40 MG; Start 09/06/18 at 14:00 Lorazepam (Ativan) 1 mg Q4 PRN IV CONTROL WITHDRAWAL SYMPTOMS Last administered on 09/07/18 11:01; Admin Dose 1 MG; Start 09/07/18 at 07:00 Chlordiazepoxide (Librium) 50 mg TID PO Last administered on 09/07/18 08:53; Admin Dose 50 MG; Start 09/07/18 at 09:00; Stop 09/07/18 at 21:01 Chlordiazepoxide (Librium) 25 mg Q6 PO ; Start 09/08/18 at 06:00; Stop 09/09/18 at 00:01 Chlordiazepoxide (Librium) 25 mg TID PO ; Start 09/09/18 at 09:00; Stop 09/09/18 at 21:01 Lactulose (Enulose) 20 gm TID PO ; Start 09/07/18 at 21:00 Multivitamins 10 ml/Thiamine HCl 100 mg/Folic Acid 1 mg/Sodium Chloride 1,011.2 ml @ 125 mls/ hr DAILY@09 IVPB ; Start 09/08/18 at 09:00 Rifaximin (Xifaxan) 550 mg BID PO ; Start 09/07/18 at 13:30 Furosemide (Lasix) 40 mg DAILY PO ; Start 09/07/18 at 13:30 Spironolactone (Aldactone) 100 mg DAILY PO ; Start 09/07/18 at 13:30 Piperacillin Sod/ Tazobactam Sod 100 ml @ 200 mls/hr Q6 IVPB ; Start 09/07/18 at 13:30 Allergies: Coded Allergies: No Known Allergy (Unverified , 09/04/18) Social History Smoking Status: Former smoker Exam/Review of Systems Exam Vitals PHYSICAL EXAMINATION: GENERAL: Well developed, well nourished, alert & oriented to name, in no acute distress SKIN: No lesions EYES: Pupils equal reactive to light, no discharge. EARS/NOSE AND THROAT: Ears normal, nose normal, oropharynx normal. NECK: Supple, no masses CHEST: Inspection within normal limits. CARDIOVASCULAR: Heart: Regular rate and rhythm RESPIRATORY: Lungs clear to auscultation and percussion, no wheezing, no rubs GASTROINTESTINAL AND LIVER: Abdomen: Soft, non tenderness, non-distended, no hernias, no masses, no organomegaly, no ascites, no guarding, no rebound tenderness, normoactive bowel sounds. Rectal: Deferred. EXTREMITIES: No cyanosis, clubbing or edema. Vital Signs Date Temp Pulse Resp B/P (MAP) Pulse Ox O2 O2 Flow FiO2 Time Delivery Rate 09/07/18 99.2 09:39 09/07/18 94 18 116/59 93 08:07 (78) 09/07/18 Room Air 01:44 Intake and Output 09/06/18 09/06/18 09/07/18 1515:00 23:00 07:00 IntakeIntake Total 990 ml 750 ml 1000 ml BalanceBalance 990 ml 750 ml 1000 ml Results Result Diagram: 09/07/18 0616 09/07/18 0620 Results 24hrs Laboratory Tests Test 09/07/18 06:16 09/07/18 06:20 White Blood Count 10.7 # Red Blood Count 3.03 L Hemoglobin 9.8 L Hematocrit 29.2 L Mean Corpuscular Volume 96.4 Mean Corpuscular Hemoglobin 32.3 Mean Corpuscular Hemoglobin Concent 33.6 Red Cell Distribution Width 17.6 H Platelet Count 65 L Mean Platelet Volume 10.4 Immature Granulocytes % 0.400 Neutrophils % Segmented Neutrophils % (Manual) 50 Band Neutrophils % (Manual) 39 H Lymphocytes % Lymphocytes % (Manual) 5 L Monocytes % Monocytes % (Manual) 4 Eosinophils % Eosinophils % (Manual) 2 Basophils % Basophils % (Manual) 1 Nucleated Red Blood Cells % 0.0 Immature Granulocytes # 0.040 H Neutrophils # Neutrophils # (Manual) 5.8 Band Neutrophils # 4.1 H Lymphocytes (Manual) 0.5 L Lymphocytes # Monocytes # Monocytes # (Manual) 0.4 Eosinophils # Basophils # Basophils # (Manual) 0.1 H Nucleated Red Blood Cells # Platelet Estimate DECREASED Polychromasia 1+ Poikilocytosis 1+ Anisocytosis 2+ Macrocytosis 2+ Sodium Level 140 Potassium Level 3.8 Chloride Level 113 H Carbon Dioxide Level 20 L Anion Gap 7 Blood Urea Nitrogen 10 Creatinine 0.90 Est Glomerular Filtrat Rate mL/min > 60 Glucose Level 104 Calcium Level 8.2 L Total Bilirubin 1.9 H Direct Bilirubin 0.00 Indirect Bilirubin 1.9 H Aspartate Amino Transf (AST/SGOT) 115 H Alanine Aminotransferase (ALT/SGPT) 43 Alkaline Phosphatase 87 Ammonia 27 Total Protein 6.6 Albumin 2.4 L Globulin 4.20 H Albumin/Globulin Ratio 0.57 Medications Medication Current Medications Dextrose/Sodium Chloride 1,000 ml @ 125 mls/hr Q8H IV Last administered on at 13:36; Admin Dose 125 MLS/HR; Start 09/04/18 at 23:00 Ondansetron HCl (Zofran Inj) 4 mg Q6H PRN IV NAUSEA/VOMITING; Start 09/04/18 at 16:00 Acetaminophen (Tylenol Tab) 650 mg Q6H PRN PO .PAIN 1-3 OR TEMP Last administered on 09/07/18at 08:54; Admin Dose 650 MG; Start 09/04/18 at 16:00 Docusate Sodium (Colace) 100 mg Q12 PO Last administered on 09/07/18at 08:53; Admin Dose 100 MG; Start 09/04/18 at 16:00 Zolpidem Tartrate (Ambien) 5 mg QHS PRN PO .INSOMNIA Last administered on 09/07/18at 01:50; Admin Dose 5 MG; Start 09/04/18 at 16:00 Pantoprazole (Protonix Tab) 40 mg DAILY@06 PO Last administered on 09/07/18at 05:12; Admin Dose 40 MG; Start 09/05/18 at 06:00 Nadolol (Corgard) 40 mg DAILY PO Last administered on 09/07/18at 08:55; Admin Dose 40 MG; Start 09/06/18 at 14:00 Lorazepam (Ativan) 1 mg Q4 PRN IV CONTROL WITHDRAWAL SYMPTOMS Last administered on 09/07/18at 11:01; Admin Dose 1 MG; Start 09/07/18 at 07:00 Chlordiazepoxide (Librium) 50 mg TID PO Last administered on 09/07/18at 08:53; Admin Dose 50 MG; Start 09/07/18 at 09:00; Stop 09/07/18 at 21:01 Chlordiazepoxide (Librium) 25 mg Q6 PO ; Start 09/08/18 at 06:00; Stop 09/09/18 at 00:01 Chlordiazepoxide (Librium) 25 mg TID PO ; Start 09/09/18 at 09:00; Stop 09/09/18 at 21:01 Lactulose (Enulose) 20 gm TID PO ; Start 09/07/18 at 21:00 Multivitamins 10 ml/Thiamine HCl 100 mg/Folic Acid 1 mg/Sodium Chloride 1,011.2 ml @ 125 mls/ hr DAILY@09 IVPB ; Start 09/08/18 at 09:00 Rifaximin (Xifaxan) 550 mg BID PO ; Start 09/07/18 at 13:30 Furosemide (Lasix) 40 mg DAILY PO ; Start 09/07/18 at 13:30 Spironolactone (Aldactone) 100 mg DAILY PO ; Start 09/07/18 at 13:30 Piperacillin Sod/ Tazobactam Sod 100 ml @ 200 mls/hr Q6 IVPB ; Start 09/07/18 at 13:30 VIVIENNE SANCHEZ Sep 07, 2018 14:45
[2018-09-07] MEDS: PIPER-TAZO 3.375 GM IV (PMX) 100 ML IVPB SCH ×3 (15:23→23:33)
[2018-09-07] MEDS: SPIRONOLACTONE 50 MG TAB PO SCH (15:24)
[2018-09-07] MEDS: RIFAXIMIN 550 MG TAB PO SCH ×2 (15:24→20:04)
[2018-09-07] MEDS: FUROSEMIDE 40 MG TAB PO SCH (15:25)
[2018-09-07 19:47] VITALS: BP 100/55; PULSE 87; RESP 20
[2018-09-08] VITALS (7 sets, daily range): BP systolic 80–106; BP diastolic 45–58; PULSE 69–79; RESP 18–20
[2018-09-08] MEDS ORDERED: SOD CHLORIDE 0.9% 500 ML IV ONE ×2 (04:00→09:30)
[2018-09-08] MEDS: PIPER-TAZO 3.375 GM IV (PMX) 100 ML IVPB SCH ×4 (05:52→23:30)
[2018-09-08] MEDS: CHLORDIAZEPOXIDE 25 MG CAP PO SCH ×4 (05:52→23:28)
[2018-09-08] MEDS: PANTOPRAZOLE (EC) 40 MG TAB PO SCH (05:52)
[2018-09-08] MEDS: DEXTROSE 5%-0.45% NACL 1,000 ML IV SCH ×3 (07:00→23:00)
[2018-09-08] MEDS: MULTIVITAMINS 10 ML, THIAMINE 100 MG, FOLIC ACID 1 MG in SOD CHLORIDE 0.9% 1,000 ML IVPB SCH (08:56)
[2018-09-08] MEDS: SPIRONOLACTONE 50 MG TAB PO SCH (08:59)
[2018-09-08] MEDS: FUROSEMIDE 40 MG TAB PO SCH (09:00)
[2018-09-08] MEDS ORDERED: NADOLOL 40 MG TAB PO SCH (09:00)
[2018-09-08] MEDS ORDERED: POTASSIUM CHLORIDE (SR) 20 MEQ TAB PO STA (09:29)
[2018-09-08] MEDS: LACTULOSE 30ML CUP PO SCH ×3 (10:08→21:25)
[2018-09-08] MEDS: RIFAXIMIN 550 MG TAB PO SCH ×2 (10:09→21:25)
[2018-09-08] MEDS: DOCUSATE SODIUM 100 MG CAP PO SCH ×2 (10:09→21:24)
[2018-09-08] MEDS ORDERED: MAGNESIUM SULFATE 6 GM in DEXTROSE 5% 100 ML IVPB ONE (11:00)
--- NOTE | 2018-09-08 14:01 | PN ---
Date/Time of Note Date/Time of Note DATE: 09/08/18 TIME: 13:56 Assessment/Plan VTE Prophylaxis Risk score (from [facility] [place])>0 risk: 3 SCD applied (from [facility] [place]): Yes Pharmacological prophylaxis: NA/contraindicated Pharm contraindication: liver dx Lines/Catheters IV Catheter Type (from [facility]): Mid Line Urinary Cath still in place: No Assessment/Plan Hospital Course SUBJECTIVE:worsening abd distention.no discomfort. OBJECTIVE: Vital signs-see below PHYSICAL EXAM: Constitutional: Disheveled male, lying in bed, drowsy. Psych: nl mood/affect, no complaints Head: atraumatic, normocephalic Eyes: nl conjunctiva, nl sclera ENMT: mucosa pink and moist, nl external ears & nose Neck: non-tender, supple Respiratory: clear to auscultation, normal air movement Cardiovascular: nl pulses, regular rate and rhythm Gastrointestinal: +DISTENDED/+Fluid wave non-tender, bowel sounds active in all 4 quadrants. Musculoskeletal/extremities: nl extremities to inspection, motor strength equal bilaterally, no focal deficit. Normal pulses,no cyanosis, no edema. Neurological: Alert oriented 2,nl speech, nl strength Skin: nl turgor ASSESSMENT/PLAN: 52-year-old homeless male with alcoholism, alcoholic liver cirrhosis, ascites, since abuse, here with altered mental status. 1. Hepatic encephalopathy -Improving. cont,banana bag lactulose and rifaximin 2. Alcoholic liver disease with ascites -Ultrasound noted, recommended paracentesis and fluid studies. -Stop Lasix secondary to renal function. Continue Aldactone. -Continue Corgard -2 g sodium diet 3. Acute kidney injury, likely Lasix induced. -We will stop Lasix and monitor renal function. Will consider nephrology if indicated. 4.Essential hypertension -Stable. Continue antihypertensives 5. Anemia of alcoholic liver disease. -Stable H&H. Continue to monitor. 6. Alcohol abuse -Advised on cessation. progress worker to see patient. 7. Homelessness -progress worker follow-up 8. Substance abuse -Urine toxicology positive for cannabinoids and alcohol. -Cessation advised 9. Febrile illness/SIRS -Resolved. Urine and blood cultures unremarkable. Proceed with ultrasound- guided paracentesis and fluid studies. -Continue empiric Zosyn unless SBP is ruled out. DVT prophylaxis: SCDs/ambulation PUD prophylaxis: Protonix Disposition: Continue current management. Await for clinical improvement. Patient was seen in collaboration with Result Diagram: 09/07/18 0616 09/08/18 0829 Results 24hrs Laboratory Tests Test 09/08/18 08:29 Prothrombin Time 31.0 #H Prothrombin Time Ratio 2.4 INR International Normalized Ratio 2.98 Sodium Level 135 Potassium Level 3.4 L Chloride Level 115 H Carbon Dioxide Level 19 L Anion Gap 1 L Blood Urea Nitrogen 14 Creatinine 1.33 H Est Glomerular Filtrat Rate mL/min 57 L Glucose Level 96 Calcium Level 7.1 L Magnesium Level 0.8 *L Total Bilirubin 1.5 H Direct Bilirubin 0.10 Indirect Bilirubin 1.4 H Aspartate Amino Transf (AST/SGOT) 76 H Alanine Aminotransferase (ALT/SGPT) 39 Alkaline Phosphatase 63 Total Protein 5.6 #L Albumin 1.9 L Exam/Review of Systems Exam Vitals Vital Signs Date Temp Pulse Resp B/P (MAP) Pulse Ox O2 O2 Flow FiO2 Time Delivery Rate 09/08/18 78 18 106/56 98 Room Air 11:14 (73) 09/08/18 97.7 08:00 Intake and Output 09/07/18 09/07/18 09/08/18 1515:00 23:00 07:00 IntakeIntake Total 1000 ml 1858.0 ml 1768 ml BalanceBalance 1000 ml 1858.0 ml 1768 ml Results Results 24hrs Laboratory Tests Test 09/08/18 08:29 Prothrombin Time 31.0 #H Prothrombin Time Ratio 2.4 INR International Normalized Ratio 2.98 Sodium Level 135 Potassium Level 3.4 L Chloride Level 115 H Carbon Dioxide Level 19 L Anion Gap 1 L Blood Urea Nitrogen 14 Creatinine 1.33 H Est Glomerular Filtrat Rate mL/min 57 L Glucose Level 96 Calcium Level 7.1 L Magnesium Level 0.8 *L Total Bilirubin 1.5 H Direct Bilirubin 0.10 Indirect Bilirubin 1.4 H Aspartate Amino Transf (AST/SGOT) 76 H Alanine Aminotransferase (ALT/SGPT) 39 Alkaline Phosphatase 63 Total Protein 5.6 #L Albumin 1.9 L Medications Medication Current Medications Dextrose/Sodium Chloride 1,000 ml @ 125 mls/hr Q8H IV Last administered on 09/07/18at 22:42; Admin Dose 125 MLS/HR; Start 09/04/18 at 23:00 Ondansetron HCl (Zofran Inj) 4 mg Q6H PRN IV NAUSEA/VOMITING; Start 09/04/18 at 16:00 Acetaminophen (Tylenol Tab) 650 mg Q6H PRN PO .PAIN 1-3 OR TEMP Last administered on 09/07/18 08:54; Admin Dose 650 MG; Start 09/04/18 at 16:00 Docusate Sodium (Colace) 100 mg Q12 PO Last administered on 09/08/18 10:09; Admin Dose 100 MG; Start 09/04/18 at 16:00 Pantoprazole (Protonix Tab) 40 mg DAILY@06 PO Last administered on 09/08/18 05:52; Admin Dose 40 MG; Start 09/05/18 at 06:00 Lorazepam (Ativan) 1 mg Q4 PRN IV CONTROL WITHDRAWAL SYMPTOMS Last administered on 09/07/18 15:42; Admin Dose 1 MG; Start 09/07/18 at 07:00 Chlordiazepoxide (Librium) 25 mg Q6 PO Last administered on 09/08/18 11:11; Admin Dose 25 MG; Start 09/08/18 at 06:00; Stop 09/09/18 at 00:01 Chlordiazepoxide (Librium) 25 mg TID PO ; Start 09/09/18 at 09:00; Stop 09/09/18 at 21:01 Lactulose (Enulose) 20 gm TID PO Last administered on 09/08/18 13:36; Admin Dose 20 GM; Start 09/07/18 at 21:00 Multivitamins 10 ml/Thiamine HCl 100 mg/Folic Acid 1 mg/Sodium Chloride 1,011.2 ml @ 125 mls/ hr DAILY@09 IVPB Last administered on 09/08/18 08:56; Admin Dose 125 MLS/HR; Start 09/08/18 at 09:00 Rifaximin (Xifaxan) 550 mg BID PO Last administered on 09/08/18 10:09; Admin Dose 550 MG; Start 09/07/18 at 13:30 Furosemide (Lasix) 40 mg DAILY PO Last administered on 09/07/18 15:25; Admin Dose 40 MG; Start 09/07/18 at 13:30 Spironolactone (Aldactone) 100 mg DAILY PO Last administered on 09/07/18 1 5:24; Admin Dose 100 MG; Start 09/07/18 at 13:30 Piperacillin Sod/ Tazobactam Sod 100 ml @ 200 mls/hr Q6 IVPB Last administered on 09/08/18at 05:52; Admin Dose 200 MLS/HR; Start 09/07/18 at 13:30 VIRAJ LUU NP Sep 08, 2018 14:01
--- NOTE | 2018-09-08 14:17 | PN ---
Date/Time of Note Date/Time of Note DATE: 09/08/18 TIME: 14:11 Assessment/Plan VTE Prophylaxis Risk score (from Ns)>0 risk: 3 SCD applied (from Ns): Yes Pharmacological prophylaxis: other (scds) Lines/Catheters IV C[facility]ter Type (from [facility] Mid Line Urinary Cath still in place: No Assessment/Plan Hospital Course Assessment: Hepatic encephalopathy Alcoholic liver disease with ascites- MELD 18 -Thrombocytopenia -Coagulopathy -Normocytic anemia Indirect hyperbilirubinemia Elevated AST Fevers- unclear etiology- patient empirically on Zosyn -Blood cx and urine cx without - no growth -CXR-The lungs are clear of acute infiltrates, edema, effusions, or masses. There is mild left basilar atelectasis. -paracentesis today will r/o SBP ETOH abuse Marijuana use Hypertension Homelessness -SW consulted Mild flattening and patchy sclerotic changes left femoral head, could be sequela of prior trauma or osteonecrosis. Plan: Paracentesis- today - R/o SBP Continue Lactulose (titrate to 3-4 BM in a 24 hour period) continue Xifaxan 550mg po BID Encourage PO intake Lasix has been d/c'd with increase in CR-we will continue spironolactone and monitor kidney function.will reassess in am. Liver cirrhosis likely 2/2 to ETOH abuse- however to be thorough will check auto-immune process as well. Patient seen in collaboration with Dr. Santos/Grzegorz Subjective: Course reviewed with nursing staff Patient interviewed and examined All labs, imaging and other results reviewed The patient resting in bed, more alert today able to make needs known and answer questions asked No c/o n/v or abd pain, will maintain close observation. No fevers x24 hours PHYSICAL EXAMINATION: GENERAL: Well developed, well nourished, alert & oriented to name, in no acute distress SKIN: No lesions EYES: Pupils equal reactive to light, no discharge. EARS/NOSE AND THROAT: Ears normal, nose normal, oropharynx normal. NECK: Supple, no masses CHEST: Inspection within normal limits. CARDIOVASCULAR: Heart: Regular rate and rhythm RESPIRATORY: Lungs clear to auscultation and percussion, no wheezing, no rubs GASTROINTESTINAL AND LIVER: Abdomen: Soft, non tenderness, non-distended, no hernias, no masses, no organomegaly, no ascites, no guarding, no rebound tenderness, normoactive bowel sounds. Rectal: Deferred. EXTREMITIES: No cyanosis, clubbing or edema. Result Diagram: 09/07/18 0616 09/08/18 0829 Results 24hrs Laboratory Tests Test 09/08/18 08:29 Prothrombin Time 31.0 #H Prothrombin Time Ratio 2.4 INR International Normalized Ratio 2.98 Sodium Level 135 Potassium Level 3.4 L Chloride Level 115 H Carbon Dioxide Level 19 L Anion Gap 1 L Blood Urea Nitrogen 14 Creatinine 1.33 H Est Glomerular Filtrat Rate mL/min 57 L Glucose Level 96 Calcium Level 7.1 L Magnesium Level 0.8 *L Total Bilirubin 1.5 H Direct Bilirubin 0.10 Indirect Bilirubin 1.4 H Aspartate Amino Transf (AST/SGOT) 76 H Alanine Aminotransferase (ALT/SGPT) 39 Alkaline Phosphatase 63 Total Protein 5.6 #L Albumin 1.9 L Exam/Review of Systems Exam Vitals Vital Signs Date Temp Pulse Resp B/P (MAP) Pulse Ox O2 O2 Flow FiO2 Time Delivery Rate 09/08/18 78 18 106/56 98 Room Air 11:14 (73) 09/08/18 97.7 08:00 Intake and Output 09/07/18 09/07/18 09/08/18 1515:00 23:00 07:00 IntakeIntake Total 1000 ml 1858.0 ml 1768 ml BalanceBalance 1000 ml 1858.0 ml 1768 ml Results Results 24hrs Laboratory Tests Test 09/08/18 08:29 Prothrombin Time 31.0 #H Prothrombin Time Ratio 2.4 INR International Normalized Ratio 2.98 Sodium Level 135 Potassium Level 3.4 L Chloride Level 115 H Carbon Dioxide Level 19 L Anion Gap 1 L Blood Urea Nitrogen 14 Creatinine 1.33 H Est Glomerular Filtrat Rate mL/min 57 L Glucose Level 96 Calcium Level 7.1 L Magnesium Level 0.8 *L Total Bilirubin 1.5 H Direct Bilirubin 0.10 Indirect Bilirubin 1.4 H Aspartate Amino Transf (AST/SGOT) 76 H Alanine Aminotransferase (ALT/SGPT) 39 Alkaline Phosphatase 63 Total Protein 5.6 #L Albumin 1.9 L Medications Medication Current Medications Dextrose/Sodium Chloride 1,000 ml @ 125 mls/hr Q8H IV Last administered on 09/07/18at 22:42; Admin Dose 125 MLS/HR; Start 09/04/18 at 23:00 Ondansetron HCl (Zofran Inj) 4 mg Q6H PRN IV NAUSEA/VOMITING; Start 09/04/18 at 16:00 Acetaminophen (Tylenol Tab) 650 mg Q6H PRN PO .PAIN 1-3 OR TEMP Last admin istered on 09/07/18 08:54; Admin Dose 650 MG; Start 09/04/18 at 16:00 Docusate Sodium (Colace) 100 mg Q12 PO Last administered on 09/08/18 10:09; Admin Dose 100 MG; Start 09/04/18 at 16:00 Pantoprazole (Protonix Tab) 40 mg DAILY@06 PO Last administered on 09/08/18 05:52; Admin Dose 40 MG; Start 09/05/18 at 06:00 Lorazepam (Ativan) 1 mg Q4 PRN IV CONTROL WITHDRAWAL SYMPTOMS Last administered on 09/07/18 15:42; Admin Dose 1 MG; Start 09/07/18 at 07:00 Chlordiazepoxide (Librium) 25 mg Q6 PO Last administered on 09/08/18 11:11; Admin Dose 25 MG; Start 09/08/18 at 06:00; Stop 09/09/18 at 00:01 Chlordiazepoxide (Librium) 25 mg TID PO ; Start 09/09/18 at 09:00; Stop 09/09/18 at 21:01 Lactulose (Enulose) 20 gm TID PO Last administered on 09/08/18 13:36; Admin Dose 20 GM; Start 09/07/18 at 21:00 Multivitamins 10 ml/Thiamine HCl 100 mg/Folic Acid 1 mg/Sodium Chloride 1,011.2 ml @ 125 mls/ hr DAILY@09 IVPB Last administered on 09/08/18 08:56; Admin Dose 125 MLS/HR; Start 09/08/18 at 09:00 Rifaximin (Xifaxan) 550 mg BID PO Last administered on 09/08/18 10:09; Admin Dose 550 MG; Start 09/07/18 at 13:30 Spironolactone (Aldactone) 100 mg DAILY PO Last administered on 09/07/18 15:24 ; Admin Dose 100 MG; Start 09/07/18 at 13:30 Piperacillin Sod/ Tazobactam Sod 100 ml @ 200 mls/hr Q6 IVPB Last administered on 09/08/18at 05:52; Admin Dose 200 MLS/HR; Start 09/07/18 at 13:30 VIVIENNE SANCHEZ Sep 08, 2018 14:17
[2018-09-08] MEDS ORDERED: LIDOCAINE 1% (MPF) 5 ML VIAL ONE (15:21)
[2018-09-08] MEDS: ACETAMINOPHEN 325 MG TAB PO PRN (21:26)
[2018-09-09 02:00] VITALS: BP 97/55; PULSE 80; RESP 18
[2018-09-09] MEDS: DEXTROSE 5%-0.45% NACL 1,000 ML IV SCH (02:15)
[2018-09-09] MEDS: PANTOPRAZOLE (EC) 40 MG TAB PO SCH (05:40)
[2018-09-09] MEDS: PIPER-TAZO 3.375 GM IV (PMX) 100 ML IVPB SCH ×4 (05:40→23:41)
[2018-09-09 06:23] VITALS: BP 100/53; PULSE 75; RESP 18
[2018-09-09 07:56] VITALS: BP 94/54; PULSE 76; RESP 20
[2018-09-09] MEDS: MULTIVITAMINS 10 ML, THIAMINE 100 MG, FOLIC ACID 1 MG in SOD CHLORIDE 0.9% 1,000 ML IVPB SCH (08:55)
[2018-09-09] MEDS: LACTULOSE 30ML CUP PO SCH ×3 (08:55→21:13)
[2018-09-09] MEDS: SPIRONOLACTONE 50 MG TAB PO SCH (08:56)
[2018-09-09] MEDS: DOCUSATE SODIUM 100 MG CAP PO SCH ×2 (08:56→21:13)
[2018-09-09] MEDS: RIFAXIMIN 550 MG TAB PO SCH ×2 (08:56→21:13)
[2018-09-09] MEDS: CHLORDIAZEPOXIDE 25 MG CAP PO SCH ×3 (08:56→21:13)
[2018-09-09] MEDS ORDERED: POTASSIUM CHLORIDE (SR) 20 MEQ TAB PO STA (11:01)
[2018-09-09] MEDS ORDERED: ALBUMIN HUMAN 25% 100 ML IV ONE (11:30)
--- NOTE | 2018-09-09 11:32 | PN ---
Date/Time of Note Date/Time of Note DATE: 09/09/18 TIME: 11:08 Assessment/Plan VTE Prophylaxis Risk score (from Ns)>0 risk: 2 SCD applied (from Ns): Yes Pharmacological prophylaxis: NA/contraindicated Pharm contraindication: liver dx Lines/Catheters [facility] Mid Line Urinary Cath still in place: No Assessment/Plan Hospital Course SUBJECTIVEs/p paracentesis, today w/worsened abd distention/pain/inability to void OBJECTIVE: Vital signs-see below PHYSICAL EXAM: Constitutional: Disheveled male, lying in bed, drowsy. Psych: nl mood/affect, no complaints Head: atraumatic, normocephalic Eyes: nl conjunctiva, nl sclera ENMT: mucosa pink and moist, nl external ears & nose Neck: non-tender, supple Respiratory: clear to auscultation, normal air movement Cardiovascular: nl pulses, regular rate and rhythm Gastrointestinal: +DISTENDED/+Fluid wave, bowel sounds active in all 4 quadrants. Musculoskeletal/extremities: nl extremities to inspection, motor strength equal bilaterally, no focal deficit. Normal pulses,no cyanosis, no edema. Neurological: Alert oriented 2,nl speech, nl strength Skin: nl turgor :+Edema scrotum/penile ASSESSMENT/PLAN: 52-year-old homeless male with alcoholism, alcoholic liver cirrhosis, ascites, since abuse, here with altered mental status. 1.Alcoholic liver disease with ascites -s/p paracentesis=> fluid analysis positive for SBP=> we will up final studies. -abd distention persists=>recommend repeat tap=>not a candidate for diuretic w/current renal fxn. -cont.Zosyn for BP prophylaxis in light of fever documented 09/07 unless proven otherwise.. -Continue Aldactone,Corgard -2 g sodium diet 2.MIREYA,Oliguric, -likely culprit lasix? -w/improved renal fxn -nephrology for further mgmt,. 3. s/p Hepatic encephalopathy -stable. change to po thiamine, cont. lactulose and rifaximin 4.Essential hypertension -Stable. Continue antihypertensives 5. Anemia of alcoholic liver disease. -Stable H&H. Continue to monitor. 6. Alcohol abuse -Advised on cessation. 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 7. Homelessness -wind turbine sheet metal worker follow-up 8. Substance abuse -Urine toxicology positive for cannabinoids and alcohol. -Cessation advised 9.questionable Urinary retention, PVR~600ML -assess significance in light of ascites -CALDERON INSERTION -urine studies,psa 10.Scrotal/penile swelling,likely from lymphedema -elevate scrotum o rolled pillows. -stop ivf -albumin 25% -scrotal us to r/o other etiologies DVT prophylaxis: SCDs/ambulation PUD prophylaxis: Protonix Disposition: Continue current management. Await for clinical improvement. Patient was seen in collaboration with Result Diagram: 09/09/18 0549 09/09/18 0549 Results 24hrs Laboratory Tests Test 09/08/18 15:00 09/08/18 19:27 09/09/18 05:49 Body Fluid Type ASCITES Body Fluid Volume 1050.0 Body Fluid Color YELLOW Body Fluid Appearance SLIGHTLY HAZY Body Fluid WBC 7494 Body Fluid RBC (Auto) 1000 Body Fluid Polynuclear WBCs (%) 87.5 Body Fluid Mononuclear Cells % 12.5 Auto Body Fluid Total Protein < 2.0 Body Fluid Lactate Dehydrogenase 301 Sodium Level 134 L 135 Potassium Level 3.2 L 3.1 L Chloride Level 109 112 H Carbon Dioxide Level 17 L 18 L Anion Gap 8 5 Blood Urea Nitrogen 16 18 Creatinine 1.41 H 1.38 H Est Glomerular Filtrat 53 L 54 L Rate mL/min Glucose Level 104 92 Calcium Level 7.2 L 7.2 L Magnesium Level 2.3 # White Blood Count 11.1 H Red Blood Count 2.65 L Hemoglobin 8.4 L Hematocrit 24.7 L Mean Corpuscular Volume 93.2 Mean Corpuscular Hemoglobin 31.7 Mean Corpuscular 34.0 Hemoglobin Concent Red Cell Distribution Width 16.8 H Platelet Count 77 L Mean Platelet Volume 10.9 H Immature Granulocytes % 1.000 H Neutrophils % 73.0 Lymphocytes % 11.7 L Monocytes % 12.7 H Eosinophils % 1.2 Basophils % 0.4 Nucleated Red Blood Cells % 0.0 Immature Granulocytes # 0.110 H Neutrophils # 8.1 H Lymphocytes # 1.3 Monocytes # 1.4 H Eosinophils # 0.1 Basophils # 0.0 Nucleated Red Blood Cells # 0.0 Exam/Review of Systems Exam Vitals Vital Signs Date Temp Pulse Resp B/P (MAP) Pulse Ox O2 O2 Flow FiO2 Time Delivery Rate 09/09/18 98.0 76 20 94/54 (67 98 07:56 09/08/18 Room Air 15:14 Intake and Output 09/08/18 09/08/18 09/09/18 1515:00 23:00 07:00 IntakeIntake Total 2210 ml 312 ml 1682 ml BalanceBalance 2210 ml 312 ml 1682 ml Results Results 24hrs Laboratory Tests Test 09/08/18 15:00 09/08/18 19:27 09/09/18 05:49 Body Fluid Type ASCITES Body Fluid Volume 1050.0 Body Fluid Color YELLOW Body Fluid Appearance SLIGHTLY HAZY Body Fluid WBC 7494 Body Fluid RBC (Auto) 1000 Body Fluid Polynuclear WBCs (%) 87.5 Body Fluid Mononuclear Cells % 12.5 Auto Body Fluid Total Protein < 2.0 Body Fluid Lactate Dehydrogenase 301 Sodium Level 134 L 135 Potassium Level 3.2 L 3.1 L Chloride Level 109 112 H Carbon Dioxide Level 17 L 18 L Anion Gap 8 5 Blood Urea Nitrogen 16 18 Creatinine 1.41 H 1.38 H Est Glomerular Filtrat 53 L 54 L Rate mL/min Glucose Level 104 92 Calcium Level 7.2 L 7.2 L Magnesium Level 2.3 # White Blood Count 11.1 H Red Blood Count 2.65 L Hemoglobin 8.4 L Hematocrit 24.7 L Mean Corpuscular Volume 93.2 Mean Corpuscular Hemoglobin 31.7 Mean Corpuscular 34.0 Hemoglobin Concent Red Cell Distribution Width 16.8 H Platelet Count 77 L Mean Platelet Volume 10.9 H Immature Granulocytes % 1.000 H Neutrophils % 73.0 Lymphocytes % 11.7 L Monocytes % 12.7 H Eosinophils % 1.2 Basophils % 0.4 Nucleated Red Blood Cells % 0.0 Immature Granulocytes # 0.110 H Neutrophils # 8.1 H Lymphocytes # 1.3 Monocytes # 1.4 H Eosinophils # 0.1 Basophils # 0.0 Nucleated Red Blood Cells # 0.0 Medications Medication Current Medications Ondansetron HCl (Zofran Inj) 4 mg Q6H PRN IV NAUSEA/VOMITING; Start 09/04/18 at 16:00 Acetaminophen (Tylenol Tab) 650 mg Q6H PRN PO .PAIN 1-3 OR TEMP Last administered on 09/08/18at 21:26; Admin Dose 650 MG; Start 09/04/18 at 16:00 Docusate Sodium (Colace) 100 mg Q12 PO Last administered on 09/09/18 08:56; Admin Dose 100 MG; Start 09/04/18 at 16:00 Pantoprazole (Protonix Tab) 40 mg DAILY@06 PO Last administered on 09/09/18 05:40; Admin Dose 40 MG; Start 09/05/18 at 06:00 Lorazepam (Ativan) 1 mg Q4 PRN IV CONTROL WITHDRAWAL SYMPTOMS Last administered on 09/07/18 15:42; Admin Dose 1 MG; Start 09/07/18 at 07:00 Chlordiazepoxide (Librium) 25 mg TID PO Last administered on 09/09/18 08:56; Admin Dose 25 MG; Start 09/09/18 at 09:00; Stop 09/09/18 at 21:01 Lactulose (Enulose) 20 gm TID PO Last administered on 09/09/18 08:55; Admin Dose 20 GM; Start 09/07/18 at 21:00 Rifaximin (Xifaxan) 550 mg BID PO Last administered on 09/09/18 08:56; Admin Dose 550 MG; Start 09/07/18 at 13:30 Spironolactone (Aldactone) 100 mg DAILY PO Last administered on 09/09/18 08:56; Admin Dose 100 MG; Start 09/07/18 at 13:30 Piperacillin Sod/ Tazobactam Sod 100 ml @ 200 mls/hr Q6 IVPB Last administered on 09/09/18 05:40; Admin Dose 200 MLS/HR; Start 09/07/18 at 13:30 VIRAJ LUU NP Sep 09, 2018 11:19
[2018-09-09 14:19] VITALS: BP 107/61; PULSE 81; RESP 18
--- NOTE | 2018-09-09 15:01 | CONS ---
DATE OF ADMISSION: 09/04/2018 DATE OF CONSULTATION: 09/09/2018 TYPE OF CONSULTATION: Nephrology. REASON FOR CONSULTATION: Acute kidney injury, hyperkalemia. PHYSICIAN REQUESTING CONSULT: Dr. Leggett, nurse practitioner. HISTORY OF PRESENT ILLNESS: This is a 52-year-old male with a past medical history of cirrhosis, alc oholic, history of hypertension, history of ascites, history of thrombocytopenia who presented to [facility] with complaints of lethargy, altered mental status. The patient previously attempted to be placed in a retirement, but declined. The patient was subsequently homeless. The martin ent was noted to be more debilitated and weaker. As a result, he was brought into the Emergency Room and admitted to med/surg for evaluation. In terms of the patient's workup, the patient's encephalop athy was felt to be hepatic in nature. He was treated with lactulose and rifaximin. The patient als o underwent a paracentesis and was found to have SBP and was placed on antibiotic therapy. The patie nt was also placed on diuretic therapy for his ascites and edema. In terms of patient's renal history, on admission the patient noted to have a creatinine of 0.9 mg/dL . In the last 48 hours, the patient's creatinine has increased to 1.38 mg/dL. During this time, the patient has had minimal urinary output. He has had significant hemodynamic fluctuations with blood pressures as low as 80s. There have been no reports of any hemoptysis, hematemesis, or hematochezia. PAST MEDICAL HISTORY: As stated above, history of ETOH cirrhosis, history of hypertension, history o f thrombocytopenia. PAST SURGICAL HISTORY: Status post paracentesis. FAMILY HISTORY: No family history of kidney disease. SOCIAL HISTORY: Positive for alcohol use. MEDICATIONS: The patient's medications have been reviewed. REVIEW OF SYSTEMS: A 14-point review of systems was conducted. Pertinent positives stated in HPI, o therwise negative. PHYSICAL EXAMINATION: VITAL SIGNS: Blood pressure is 104/62, respiration 16, pulse 98, temperature 98.6. HEENT: Head is normocephalic. NECK: Supple. HEART: Regular rate. LUNGS: Show diminished breath sounds at the base. ABDOMEN: Soft, nontender to palpation without rebound or guarding. EXTREMITIES: Negative for clubbing, cyanosis. Trace edema. DERMATOLOGIC: No rashes. MUSCULOSKELETAL: No joint effusions. NEUROLOGIC: No focal deficits. MEDICATIONS: Reviewed. LABORATORY DATA: Shows sodium 135, potassium 2.1, chloride 112, BUN 18, creatinine 1.38. White coun t 11.1, hemoglobin 8.4, platelet count 77. The patient's urinalysis shows no pyuria, no hematuria, + 1 proteinuria. IMAGING STUDIES: Have been reviewed. ASSESSMENT AND PLAN: This is a 52-year-old male who presents with: 1. Oliguric acute kidney injury with a previous baseline creatinine of 0.7 mg/dL. Etiology of acute kidney injury is likely multifactorial secondary to hemodynamics, diuretics. The possibility of tub ular injury is a consideration. A diagnosis of hepatorenal syndrome cannot be made at this time as t his is a diagnosis of exclusion. Recommendation would be to repeat a UA with microanalysis. Will ch asmita urine electrolytes. We will calculate FENa, calculate fractional secretion of urea. Will start the patient on volume expansion with IV albumin. Would defer any diuretic therapy at this time. Wou ld otherwise continue current treatment plan, supportive care, renally dose all meds. Please note a renal ultrasound will also be obtained to further evaluate renal parenchyma. 2. Hyperkalemia, likely secondary to gastrointestinal losses. Continue to monitor and replete potas sium chloride. 3. Anemia. Monitor hemoglobin and hematocrit levels. 4. Acidosis. Etiology may be compensatory due to underlying hypercapnia. Will continue to monitor. 5. Mineral bone disorder, monitor calcium and phosphorus levels. 6. Decompensated ETOH cirrhosis. The patient currently has noted ascites and encephalopathy, portal hypertension. Continue medical management. Continue low-dose beta hayder. Will hold diuretic the rapy in the setting of acute kidney injury. Continue rifaximin. 7. History of hypertension. 8. ETOH abuse. Monitor for withdrawal. 9. History of retention, status post [place] catheter placement. Continue to monitor. Thank you, Ellen Vital NP, for this interesting consult. It will be a pleasure to follow patient fern h efrain throughout the hospital course. Dictated By: HELEN SINHA DO NR/NTS Conf#: [id number] DID#: [id number] CC: AJAY SAUCEDA MD;*EndCC*
--- NOTE | 2018-09-09 15:11 | CONS ---
DATE OF ADMISSION: 09/04/2018 DATE OF CONSULTATION: 09/09/2018 TYPE OF CONSULTATION: Infectious Disease. REASON FOR CONSULTATION: Antibiotic management. HISTORY OF PRESENT ILLNESS: Slade Harris is a 52-year-old male, who comes in for evaluation o f generalized weakness and is being seen for antibiotic management. PAST PROBLEMS INCLUDE: 1. Coronary artery disease. 2. Alcoholic liver disease with cirrhosis. Acutely, the patient has coronary artery disease, and presents with weakness for the past 3 days. He was brought in by ambulance. He is homeless. He could not get up. He was recently admitted and di scharged from the hospital yesterday. This is his sixth visit to the ER since 2011. HOSPITAL COURSE: On admission, his white count is 5.4, H and H of 10.6 and 32.3, platelet count 69,0 00. BUN and creatinine 16/0.75. His blood cultures have been negative. Urine cultures negative. B segundo fluid culture of paracentesis is pending. The patient had a chest x-ray, which showed mild left basilar atelectasis. CT scan of the brain: No evidence of acute intracranial hemorrhage, infarct or intracranial pathology. Hip x-ray: No acute osseous abnormalities. Mild flattening and patchy scl erotic changes of the left femoral head. Abdominal ultrasound: Moderate ascites. On the , he h ad a paracentesis and they took off 1 liter, sent for laboratory analysis, and today, he has small to moderate amount of ascites. He had ____ white cells, 88% polys, consistent with infection. His hep atitis surface antigen and core antibody were negative. The patient is on Zosyn and rifaximin. PAST MEDICAL HISTORY: Operations as outlined. FAMILY HISTORY: Noncontributory. SOCIAL HISTORY: He is homeless. FAMILY HISTORY: Noncontributory. SOCIAL HISTORY: He has alcohol abuse. He is a current every day smoker, does use marijuana. ALLERGIES: NONE TO PENICILLIN, SULFA OR FOODS. PHYSICAL EXAMINATION: GENERAL: The patient is awake, responsive, in no acute distress. VITAL SIGNS: Stable. He is afebrile. SKIN: Without generalized rash. HEENT: Within normal limits. NECK: Supple. LYMPH NODES: None palpable. CHEST: Decreased breath sounds at the bases. HEART: Without murmur or gallop. ABDOMEN: Soft, slightly distended without organosplenomegaly or masses. EXTREMITIES: Without cyanosis, clubbing, or edema. RECTAL AND GENITAL: Deferred. NEUROLOGIC: No focal neurological abnormalities. ANCILLARY LABORATORY DATA: His white count today is 11.1, BUN and creatinine are 18/1.38. His urina lysis is negative for nitrite and leukocyte esterase. IMPRESSION: The patient has spontaneous bacterial peritonitis with a very significant white count of ____ with a predominance of neutrophils. We will continue him on current therapy. I will dictate m y findings to the hospitalist. Dictated By: GERALDINE AVITIA MD, JD/NTS Conf#: [id number] DID#: [id number] CC: YANE ASH NP; AJAY SAUCEDA MD;*[facility]*
--- NOTE | 2018-09-09 17:20 | PN ---
Date/Time of Note Date/Time of Note DATE: 09/09/18 TIME: 17:14 Assessment/Plan VTE Prophylaxis Risk score (from Ns)>0 risk: 2 SCD applied (from Ns): Yes Pharmacological prophylaxis: other (scds) Lines/Catheters IV [facility] Urinary Cath still in place: No Assessment/Plan Hospital Course Assessment: Hepatic encephalopathy Alcoholic liver disease with ascites- MELD 18 , (DF on admission 24.8) -Thrombocytopenia -Coagulopathy -Normocytic anemia Indirect hyperbilirubinemia- improved Elevated AST SBP- on Zosyn Fevers- 2/2 SBP patient empirically on Zosyn- improved -Blood cx and urine cx without - no growth -CXR-The lungs are clear of acute infiltrates, edema, effusions, or masses. There is mild left basilar atelectasis. -paracentesis today will r/o SBP ETOH abuse Marijuana use Hypertension Homelessness -SW consulted Mild flattening and patchy sclerotic changes left femoral head, could be sequela of prior trauma or osteonecrosis. Plan: Continue to monitor labs- HGB trending down will plan for EGD in near future with improvement of coagulation Pt with increased abd distentions and abd pressure- ill plan for repeat paracentesis tomorrow Vitamin K 10 SQ x3 days Continue Lactulose (titrate to 3-4 BM in a 24 hour period) continue Xifaxan 550mg po BID Encourage PO intake Continue current regimen Nephrology following Patient seen in collaboration with Dr. Santos/Grzegorz Subjective: Course reviewed with nursing staff Patient interviewed and examined All labs, imaging and other results reviewed No over signs of GI bleed, will attempt to improve coagulation to EGD in near future Maintain close observation PHYSICAL EXAMINATION: GENERAL: Well developed, well nourished, alert & oriented to name, in no acute distress SKIN: No lesions EYES: Pupils equal reactive to light, no discharge. EARS/NOSE AND THROAT: Ears normal, nose normal, oropharynx normal. NECK: Supple, no masses CHEST: Inspection within normal limits. CARDIOVASCULAR: Heart: Regular rate and rhythm RESPIRATORY: Lungs clear to auscultation and percussion, no wheezing, no rubs GASTROINTESTINAL AND LIVER: Abdomen: Soft, non tenderness, non-distended, no hernias, no masses, no organomegaly, no ascites, no guarding, no rebound tenderness, normoactive bowel sounds. Rectal: Deferred. EXTREMITIES: No cyanosis, clubbing or edema. Result Diagram: 09/09/18 0549 09/09/18 0549 Results 24hrs Laboratory Tests Test 09/08/18 19:27 09/09/18 05:47 09/09/18 05:49 09/09/18 11:20 Sodium Level 134 L 135 Potassium Level 3.2 L 3.1 L Chloride Level 109 112 H Carbon Dioxide Level 17 L 18 L Anion Gap 8 5 Blood Urea Nitrogen 16 18 Creatinine 1.41 H 1.38 H Est Glomerular 53 L 54 L Filtrat Rate mL/min Glucose Level 104 92 Calcium Level 7.2 L 7.2 L Magnesium Level 2.3 # Prostate Specific 0.2 Antigen White Blood Count 11.1 H Red Blood Count 2.65 L Hemoglobin 8.4 L Hematocrit 24.7 L Mean Corpuscular 93.2 Volume Mean Corpuscular 31.7 Hemoglobin Mean Corpuscular 34.0 Hemoglobin Concent Red Cell 16.8 H Distribution Width Platelet Count 77 L Mean Platelet Volume 10.9 H Immature 1.000 H Granulocytes % Neutrophils % 73.0 Lymphocytes % 11.7 L Monocytes % 12.7 H Eosinophils % 1.2 Basophils % 0.4 Nucleated Red Blood 0.0 Cells % Immature 0.110 H Granulocytes # Neutrophils # 8.1 H Lymphocytes # 1.3 Monocytes # 1.4 H Eosinophils # 0.1 Basophils # 0.0 Nucleated Red Blood 0.0 Cells # Urine Random 230.79 Creatinine Urine Random Sodium < 13 L Urine Total Protein 11.0 Exam/Review of Systems Exam Vitals Vital Signs Date Temp Pulse Resp B/P (MAP) Pulse Ox O2 O2 Flow FiO2 Time Delivery Rate 09/09/18 97.7 81 18 107/61 100 14:19 (76) 09/08/18 Room Air 15:14 Intake and Output 09/08/18 09/08/18 09/09/18 1515:00 23:00 07:00 IntakeIntake Total 2210 ml 312 ml 1682 ml BalanceBalance 2210 ml 312 ml 1682 ml Results Results 24hrs Laboratory Tests Test 09/08/18 19:27 09/09/18 05:47 09/09/18 05:49 09/09/18 11:20 Sodium Level 134 L 135 Potassium Level 3.2 L 3.1 L Chloride Level 109 112 H Carbon Dioxide Level 17 L 18 L Anion Gap 8 5 Blood Urea Nitrogen 16 18 Creatinine 1.41 H 1.38 H Est Glomerular 53 L 54 L Filtrat Rate mL/min Glucose Level 104 92 Calcium Level 7.2 L 7.2 L Magnesium Level 2.3 # Prostate Specific 0.2 Antigen White Blood Count 11.1 H Red Blood Count 2.65 L Hemoglobin 8.4 L Hematocrit 24.7 L Mean Corpuscular 93.2 Volume Mean Corpuscular 31.7 Hemoglobin Mean Corpuscular 34.0 Hemoglobin Concent Red Cell 16.8 H Distribution Width Platelet Count 77 L Mean Platelet Volume 10.9 H Immature 1.000 H Granulocytes % Neutrophils % 73.0 Lymphocytes % 11.7 L Monocytes % 12.7 H Eosinophils % 1.2 Basophils % 0.4 Nucleated Red Blood 0.0 Cells % Immature 0.110 H Granulocytes # Neutrophils # 8.1 H Lymphocytes # 1.3 Monocytes # 1.4 H Eosinophils # 0.1 Basophils # 0.0 Nucleated Red Blood 0.0 Cells # Urine Random 230.79 Creatinine Urine Random Sodium < 13 L Urine Total Protein 11.0 Medications Medication Current Medications Ondansetron HCl (Zofran Inj) 4 mg Q6H PRN IV NAUSEA/VOMITING; Start 09/04/18 at 16:00 Acetaminophen (Tylenol Tab) 650 mg Q6H PRN PO .PAIN 1-3 OR TEMP Last administe red on 09/08/18at 21:26; Admin Dose 650 MG; Start 09/04/18 at 16:00 Docusate Sodium (Colace) 100 mg Q12 PO Last administered on 09/09/18at 08:56; Admin Dose 100 MG; Start 09/04/18 at 16:00 Pantoprazole (Protonix Tab) 40 mg DAILY@06 PO Last administered on 09/09/18at 05:40; Admin Dose 40 MG; Start 09/05/18 at 06:00 Lorazepam (Ativan) 1 mg Q4 PRN IV CONTROL WITHDRAWAL SYMPTOMS Last administered on 09/07/18at 15:42; Admin Dose 1 MG; Start 09/07/18 at 07:00 Chlordiazepoxide (Librium) 25 mg TID PO Last administered on 09/09/18at 13:00; Admin Dose 25 MG; Start 09/09/18 at 09:00; Stop 09/09/18 at 21:01 Lactulose (Enulose) 20 gm TID PO Last administered on 09/09/18 13:00; Admin Dose 20 GM; Start 09/07/18 at 21:00 Rifaximin (Xifaxan) 550 mg BID PO Last administered on 09/09/18 08:56; Admin Dose 550 MG; Start 09/07/18 at 13:30 Spironolactone (Aldactone) 100 mg DAILY PO Last administered on 09/09/18at 08:56; Admin Dose 100 MG; Start 09/07/18 at 13:30 Piperacillin Sod/ Tazobactam Sod 100 ml @ 200 mls/hr Q6 IVPB Last administered on 09/09/18at 14:42; Admin Dose 200 MLS/HR; Start 09/07/18 at 13:30 Thiamine HCl (Vitamin B1) 100 mg DAILY PO ; Start 09/10/18 at 09:00 Folic Acid (Folic Acid) 1 mg DAILY PO ; Start 09/10/18 at 09:00 Albumin Human 100 ml @ 100 mls/hr Q6 IV ; Start 09/09/18 at 18:00; Stop 09/10/18 at 12:59 VIVIENNE SANCHEZ Sep 09, 2018 17:20
[2018-09-09] MEDS: PHYTONADIONE 10 MG/ML INJ SC SCH (17:33)
[2018-09-09] MEDS: ALBUMIN HUMAN 25% 100 ML IV SCH (18:11)
[2018-09-09 20:00] VITALS: BP 94/54; PULSE 84; RESP 19
[2018-09-09] MEDS: ACETAMINOPHEN 325 MG TAB PO PRN (21:15)
[2018-09-10] MEDS: ALBUMIN HUMAN 25% 100 ML IV SCH ×3 (00:22→11:42)
[2018-09-10 02:00] VITALS: BP 98/56; PULSE 75; RESP 18
[2018-09-10] MEDS: ACETAMINOPHEN 325 MG TAB PO PRN (05:11)
[2018-09-10] MEDS: PIPER-TAZO 3.375 GM IV (PMX) 100 ML IVPB SCH ×3 (05:11→17:56)
[2018-09-10] MEDS: PANTOPRAZOLE (EC) 40 MG TAB PO SCH (05:11)
[2018-09-10 07:36] VITALS: BP 92/51; PULSE 74; RESP 16
[2018-09-10] MEDS: SPIRONOLACTONE 50 MG TAB PO SCH (09:00)
[2018-09-10] MEDS: THIAMINE 100 MG TAB PO SCH (09:05)
[2018-09-10] MEDS: FOLIC ACID 1 MG TAB PO SCH (09:05)
[2018-09-10] MEDS: RIFAXIMIN 550 MG TAB PO SCH ×2 (09:05→20:33)
[2018-09-10] MEDS: LACTULOSE 30ML CUP PO SCH ×3 (09:05→20:33)
[2018-09-10] MEDS: DOCUSATE SODIUM 100 MG CAP PO SCH ×2 (09:05→20:33)
[2018-09-10] MEDS: PHYTONADIONE 10 MG/ML INJ SC SCH (09:06)
--- NOTE | 2018-09-10 09:08 | PN ---
DATE: 09/10/2018 SUBJECTIVE: The patient is stable, no events overnight. Urinary output has been minimal. No other events noted. OBJECTIVE: VITAL SIGNS: Blood pressure 92/51, respirations 16, pulse 74, temperature 97.3. HEENT: Head is normocephalic. NECK: Supple. HEART: Regular rate. LUNGS: Show diminished breath sounds at the base. ABDOMEN: Soft, nontender to palpation without rebound or guarding. EXTREMITIES: Negative for clubbing, cyanosis. Positive trace edema. DERMATOLOGIC: No rashes. MUSCULOSKELETAL: No joint effusion. NEUROLOGIC: No change in exam. MEDICATIONS: Reviewed. LABORATORY DATA: Sodium 138, potassium 3.5, bicarbonate 17, BUN 15, creatinine 1.01. White count 6. 0, hemoglobin 8.3, platelet count is 58. ASSESSMENT AND PLAN: 1. Nonoliguric acute kidney injury with previous baseline creatinine of 0.6 mg/dL. Etiology of acut e kidney injury is secondary to hemodynamics, volume depletion. The patient's urinalysis was reviewe d, no evidence of active sediment. Patient's FENa is less than 1%, consistent with possible prerenal etiology. The patient's renal function has improved after being given a fluid challenge. We will c ontinue current treatment plan. Continue another 24 hours of IV albumin and monitor closely. 2. Hypokalemia secondary to gastrointestinal losses, improved. Continue to monitor and replete. 3. Anemia. Monitor hemoglobin and hematocrit levels. 4. Acidosis. Etiology may be compensatory due to tachypnea. Will continue to monitor. 5. Mineral bone disorder, monitor calcium and phosphorus levels. 6. Decompensated ETOH cirrhosis. The patient has noted ascites, encephalopathy, portal hypertension . Continue medical management. 7. History of hypertension. 8. History of ETOH abuse. Monitor. 9. Urinary retention, status post [place] catheter placement. Dictated By: HELEN SINHA DO NR/NTS Conf#: [id number] DID#: [id number] CC: AJAY SAUCEDA MD;*EndCC*
--- NOTE | 2018-09-10 12:18 | PN ---
Date/Time of Note Date/Time of Note DATE: 09/10/18 TIME: 12:06 Assessment/Plan VTE Prophylaxis Risk score (from Ns)>0 risk: 2 SCD applied (from Ns): Yes Pharmacological prophylaxis: NA/contraindicated Pharm contraindication: liver dx Lines/Catheters IV [facility]from [facility] Mid Line Urinary Cath still in place: No Assessment/Plan Hospital Course SUBJECTIVE: Patient continued to have abdominal pain more on right side, with distention. He denied nausea, vomiting, poor appetite or others. Patient has been having regular bowel movements but OBJECTIVE: Vital signs-see below PHYSICAL EXAM: Constitutional: Disheveled male, lying in bed, drowsy. Psych: nl mood/affect, no complaints Head: atraumatic, normocephalic Eyes: nl conjunctiva, nl sclera ENMT: mucosa pink and moist, nl external ears & nose Neck: non-tender, supple Respiratory: clear to auscultation, normal air movement Cardiovascular: nl pulses, regular rate and rhythm Gastrointestinal: +DISTENDED/tender RLQ, bowel sounds active in all 4 quadrants. Musculoskeletal/extremities: nl extremities to inspection, motor strength equal bilaterally, no focal deficit. Normal pulses,no cyanosis, no edema. Neurological: Alert oriented 2,nl speech, nl strength Skin: nl turgor :+Edema scrotum/penile ASSESSMENT/PLAN: 52-year-old homeless male with alcoholism, alcoholic liver cirrhosis, ascites here with altered mental status. 1.Decompensated Alcoholic liver disease with sequela of ascites/coagulopathy/portal HTN -s/p paracentesis 09/08/18 => fluid analysis positive for SBP=> we will up final studies. -Repeat today -Management per GI team. Receiving vitamin K injection. -on Aldactone,Corgard. Unable to tolerate Lasix secondary to renal function -2 g sodium diet 2. Possible spontaneous bacterial peritonitis -Continue Zosyn -Follow-up fluid micro studies -abd distention persists=>recommend repeat tap=>not a candidate for diuretic w/current renal fxn. -cont.Zosyn -Management per ID 3. RLQ pain/distention, likely related to #1 versus other acute intra-abdominal etiologies. -Obtain a CAT scan of abdomen and pelvis to rule out acute intra-abdominal etiologies 4.MIREYA,Oliguric, -likely culprit lasix -Resolved. -Management per nephrology 5. Hepatic encephalopathy -stable. -cont. thiamine, lactulose and rifaximin 6.Essential hypertension -Stable. Continue antihypertensives 7. Anemia of alcoholic liver disease. -Stable H&H. Continue to monitor. 8. Alcohol abuse -Advised on cessation. 9. 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 Substance abuse -Urine toxicology positive for cannabinoids and alcohol. -Cessation advised DVT prophylaxis: SCDs/ambulation PUD prophylaxis: Protonix Disposition: Continue current management. Await for clinical improvement. Patient was seen in collaboration with Result Diagram: 09/10/18 0453 09/10/18 0453 Results 24hrs Laboratory Tests Test 09/09/18 17:50 09/10/18 04:53 Urine Color YELLOW Urine Clarity CLEAR Urine pH 5.0 Urine Specific [place] 1.020 Urine Ketones NEGATIVE Urine Nitrite NEGATIVE Urine Bilirubin NEGATIVE Urine Urobilinogen NEGATIVE Urine Leukocyte Esterase NEGATIVE Urine Microscopic RBC 40 H Urine Microscopic WBC 2 Urine Bacteria FEW A Urine Hemoglobin 1+ H Urine Glucose NEGATIVE Urine Total Protein NEGATIVE White Blood Count 6.0 # Red Blood Count 2.65 L Hemoglobin 8.3 L Hematocrit 24.3 L Mean Corpuscular Volume 91.7 Mean Corpuscular Hemoglobin 31.3 Mean Corpuscular Hemoglobin Concent 34.2 Red Cell Distribution Width 16.8 H Platelet Count 58 #L Mean Platelet Volume 9.9 Immature Granulocytes % 1.500 H Neutrophils % 67.0 Lymphocytes % 16.6 Monocytes % 12.4 H Eosinophils % 2.0 Basophils % 0.5 Nucleated Red Blood Cells % 0.0 Immature Granulocytes # 0.090 H Neutrophils # 4.1 Lymphocytes # 1.0 Monocytes # 0.8 Eosinophils # 0.1 Basophils # 0.0 Nucleated Red Blood Cells # 0.0 Sodium Level 138 Potassium Level 3.5 Chloride Level 113 H Carbon Dioxide Level 17 L Anion Gap 8 Blood Urea Nitrogen 15 Creatinine 1.01 Est Glomerular Filtrat Rate mL/min > 60 Glucose Level 79 Calcium Level 8.1 L Magnesium Level 1.8 Total Bilirubin 0.9 Direct Bilirubin 0.00 Indirect Bilirubin 0.9 Aspartate Amino Transf (AST/SGOT) 65 H Alanine Aminotransferase (ALT/SGPT) 40 Alkaline Phosphatase 91 Total Protein 5.5 L Albumin 2.3 L Globulin 3.20 Albumin/Globulin Ratio 0.71 Exam/Review of Systems Exam Vitals Vital Signs Date Temp Pulse Resp B/P (MAP) Pulse Ox O2 O2 Flow FiO2 Time Delivery Rate 09/10/18 97.3 74 16 92/51 (65) 97 Room Air 07:36 Intake and Output 09/09/18 09/09/18 09/10/18 1515:00 23:00 07:00 IntakeIntake Total 1515.5 ml 700 ml 520 ml OutputOutput Total 250 ml BalanceBalance 1515.5 ml 450 ml 520 ml Results Results 24hrs Laboratory Tests Test 09/09/18 17:50 09/10/18 04:53 Urine Color YELLOW Urine Clarity CLEAR Urine pH 5.0 Urine Specific [place] 1.020 Urine Ketones NEGATIVE Urine Nitrite NEGATIVE Urine Bilirubin NEGATIVE Urine Urobilinogen NEGATIVE Urine Leukocyte Esterase NEGATIVE Urine Microscopic RBC 40 H Urine Microscopic WBC 2 Urine Bacteria FEW A Urine Hemoglobin 1+ H Urine Glucose NEGATIVE Urine Total Protein NEGATIVE White Blood Count 6.0 # Red Blood Count 2.65 L Hemoglobin 8.3 L Hematocrit 24.3 L Mean Corpuscular Volume 91.7 Mean Corpuscular Hemoglobin 31.3 Mean Corpuscular Hemoglobin Concent 34.2 Red Cell Distribution Width 16.8 H Platelet Count 58 #L Mean Platelet Volume 9.9 Immature Granulocytes % 1.500 H Neutrophils % 67.0 Lymphocytes % 16.6 Monocytes % 12.4 H Eosinophils % 2.0 Basophils % 0.5 Nucleated Red Blood Cells % 0.0 Immature Granulocytes # 0.090 H Neutrophils # 4.1 Lymphocytes # 1.0 Monocytes # 0.8 Eosinophils # 0.1 Basophils # 0.0 Nucleated Red Blood Cells # 0.0 Sodium Level 138 Potassium Level 3.5 Chloride Level 113 H Carbon Dioxide Level 17 L Anion Gap 8 Blood Urea Nitrogen 15 Creatinine 1.01 Est Glomerular Filtrat Rate mL/min > 60 Glucose Level 79 Calcium Level 8.1 L Magnesium Level 1.8 Total Bilirubin 0.9 Direct Bilirubin 0.00 Indirect Bilirubin 0.9 Aspartate Amino Transf (AST/SGOT) 65 H Alanine Aminotransferase (ALT/SGPT) 40 Alkaline Phosphatase 91 Total Protein 5.5 L Albumin 2.3 L Globulin 3.20 Albumin/Globulin Ratio 0.71 Medications Medication Current Medications Ondansetron HCl (Zofran Inj) 4 mg Q6H PRN IV NAUSEA/VOMITING; Start 09/04/18 at 16:00 Acetaminophen (Tylenol Tab) 650 mg Q6H PRN PO .PAIN 1-3 OR TEMP Last administered on 09/10/18 05:11; Admin Dose 650 MG; Start 09/04/18 at 16:00 Docusate Sodium (Colace) 100 mg Q12 PO Last administered on 09/10/18 09:05; Admin Dose 100 MG; Start 09/04/18 at 16:00 Pantoprazole (Protonix Tab) 40 mg DAILY@06 PO Last administered on 09/10/18 05:11; Admin Dose 40 MG; Start 09/05/18 at 06:00 Lorazepam (Ativan) 1 mg Q4 PRN IV CONTROL WITHDRAWAL SYMPTOMS Last administered on 09/07/18 15:42; Admin Dose 1 MG; Start 09/07/18 at 07:00 Lactulose (Enulose) 20 gm TID PO Last administered on 09/10/18 09:05; Admin Dose 20 GM; Start 09/07/18 at 21:00 Rifaximin (Xifaxan) 550 mg BID PO Last administered on 09/10/18 09:05; Admin Dose 550 MG; Start 09/07/18 at 13:30 Spironolactone (Aldactone) 100 mg DAILY PO Last administered on 09/09/18 08:56; Admin Dose 100 MG; Start 09/07/18 at 13:30 Piperacillin Sod/ Tazobactam Sod 100 ml @ 200 mls/hr Q6 IVPB Last administered on 09/10/18 11:02; Admin Dose 200 MLS/HR; Start 09/07/18 at 13:30 Thiamine HCl (Vitamin B1) 100 mg DAILY PO Last administered on 09/10/18 09:05; Admin Dose 100 MG; Start 09/10/18 at 09:00 Folic Acid (Folic Acid) 1 mg DAILY PO Last administered on 09/10/18 09:05; Admin Dose 1 MG; Start 09/10/18 at 09:00 Albumin Human 100 ml @ 100 mls/hr Q6 IV Last administered on 09/10/18 11:42; Admin Dose 100 MLS/HR; Start 09/09/18 at 18:00; Stop 09/10/18 at 12:59 Phytonadione (Vitamin K) 10 mg DAILY SC Last administered on 09/10/18 09:06; Admin Dose 10 MG; Start 09/09/18 at 17:30; Stop 09/11/18 at 11:00 VIRAJ LUU NP Sep 10, 2018 12:18
[2018-09-10 13:31] VITALS: BP 104/58; RESP 16
[2018-09-10] MEDS ORDERED: LIDOCAINE 1% (MPF) 5 ML VIAL ONE (13:55)
[2018-09-10 13:56] VITALS: BP 94/51; RESP 16
[2018-09-10 14:00] VITALS: BP 101/74; PULSE 69; RESP 18
--- NOTE | 2018-09-10 14:41 | CONS ---
Assessment/Plan Assessment/Plan Hospital Course (Demo Recall) Patient is alert looks comfortable afebrile WBC 6 platelets 58 neutrophils 67 BUN 15 creatinine 1.01 Microbiology: All cultures negative Antimicrobials: Zosyn Physical examination: Well-developed ill-appearing middle-aged man who is alert in no distress. Head atraumatic normocephalic. Neck is supple. Heart: S1-S2. Lungs: Breath sounds diminished bases. Abdomen distended, tympany on p ercussion, bowel sounds diminished. Patient has penoscrotal edema. Extremities without cyanosis. Assessment: 1. Decompensated alcoholic liver cirrhosis 2. Recurrent ascites status post paracentesis 3. Probable SBP per cytology 4. Acute kidney injury on admission 5. Penoscrotal edema Plan: Patient is stable, continue present care, follow GI and renal recommendations Consultation Date/Type/Reason Admit Date/Time Sep 04, 2018 at 11:46 Initial Consult Date 09/07/18 Type of Consult id Date/Time of Note DATE: 09/10/18 TIME: 14:41 Exam/Review of Systems Exam Vitals Vital Signs Date Temp Pulse Resp B/P (MAP) Pulse Ox O2 O2 Flow FiO2 Time Delivery Rate 09/10/18 97.9 69 18 101/74 100 Room Air 14:00 (83) Intake and Output 09/09/18 09/09/18 09/10/18 1515:00 23:00 07:00 IntakeIntake Total 1515.5 ml 700 ml 520 ml OutputOutput Total 250 ml BalanceBalance 1515.5 ml 450 ml 520 ml Results Result Diagram: 09/10/18 0453 09/10/18 0453 Results 24hrs Laboratory Tests Test 09/09/18 17:50 09/10/18 04:53 Urine Color YELLOW Urine Clarity CLEAR Urine pH 5.0 Urine Specific [place] 1.020 Urine Ketones NEGATIVE Urine Nitrite NEGATIVE Urine Bilirubin NEGATIVE Urine Urobilinogen NEGATIVE Urine Leukocyte Esterase NEGATIVE Urine Microscopic RBC 40 H Urine Microscopic WBC 2 Urine Bacteria FEW A Urine Hemoglobin 1+ H Urine Glucose NEGATIVE Urine Total Protein NEGATIVE White Blood Count 6.0 # Red Blood Count 2.65 L Hemoglobin 8.3 L Hematocrit 24.3 L Mean Corpuscular Volume 91.7 Mean Corpuscular Hemoglobin 31.3 Mean Corpuscular Hemoglobin Concent 34.2 Red Cell Distribution Width 16.8 H Platelet Count 58 #L Mean Platelet Volume 9.9 Immature Granulocytes % 1.500 H Neutrophils % 67.0 Lymphocytes % 16.6 Monocytes % 12.4 H Eosinophils % 2.0 Basophils % 0.5 Nucleated Red Blood Cells % 0.0 Immature Granulocytes # 0.090 H Neutrophils # 4.1 Lymphocytes # 1.0 Monocytes # 0.8 Eosinophils # 0.1 Basophils # 0.0 Nucleated Red Blood Cells # 0.0 Sodium Level 138 Potassium Level 3.5 Chloride Level 113 H Carbon Dioxide Level 17 L Anion Gap 8 Blood Urea Nitrogen 15 Creatinine 1.01 Est Glomerular Filtrat Rate mL/min > 60 Glucose Level 79 Calcium Level 8.1 L Magnesium Level 1.8 Total Bilirubin 0.9 Direct Bilirubin 0.00 Indirect Bilirubin 0.9 Aspartate Amino Transf (AST/SGOT) 65 H Alanine Aminotransferase (ALT/SGPT) 40 Alkaline Phosphatase 91 Total Protein 5.5 L Albumin 2.3 L Globulin 3.20 Albumin/Globulin Ratio 0.71 Medications Medication Current Medications Ondansetron HCl (Zofran Inj) 4 mg Q6H PRN IV NAUSEA/VOMITING; Start 09/04/18 at 16:00 Acetaminophen (Tylenol Tab) 650 mg Q6H PRN PO .PAIN 1-3 OR TEMP Last administered on 09/10/18 05:11; Admin Dose 650 MG; Start 09/04/18 at 16:00 Docusate Sodium (Colace) 100 mg Q12 PO Last administered on 09/10/18 09:05; Admin Dose 100 MG; Start 09/04/18 at 16:00 Pantoprazole (Protonix Tab) 40 mg DAILY@06 PO Last administered on 09/10/18 05:11; Admin Dose 40 MG; Start 09/05/18 at 06:00 Lorazepam (Ativan) 1 mg Q4 PRN IV CONTROL WITHDRAWAL SYMPTOMS Last administered on 09/07/18at 15:42; Admin Dose 1 MG; Start 09/07/18 at 07:00 Lactulose (Enulose) 20 gm TID PO Last administered on 09/10/18 09:05; Admin Dose 20 GM; Start 09/07/18 at 21:00 Rifaximin (Xifaxan) 550 mg BID PO Last administered on 09/10/18 09:05; Admin Dose 550 MG; Start 09/07/18 at 13:30 Spironolactone (Aldactone) 100 mg DAILY PO Last administered on 09/09/18 08:56; Admin Dose 100 MG; Start 09/07/18 at 13:30 Piperacillin Sod/ Tazobactam Sod 100 ml @ 200 mls/hr Q6 IVPB Last administered on 09/10/18 11:02; Admin Dose 200 MLS/HR; Start 09/07/18 at 13:30 Thiamine HCl (Vitamin B1) 100 mg DAILY PO Last administered on 09/10/18 09:05; Admin Dose 100 MG; Start 09/10/18 at 09:00 Folic Acid (Folic Acid) 1 mg DAILY PO Last administered on 09/10/18 09:05; Admin Dose 1 MG; Start 09/10/18 at 09:00 Phytonadione (Vitamin K) 10 mg DAILY SC Last administered on 09/10/18at 09:06; Admin Dose 10 MG; Start 09/09/18 at 17:30; Stop 09/11/18 at 11:00 DANYELLE LAW NP Sep 10, 2018 14:41
--- NOTE | 2018-09-10 16:28 | PN ---
Date/Time of Note Date/Time of Note DATE: 09/10/18 TIME: 16:17 Assessment/Plan VTE Prophylaxis Risk score (from Ns)>0 risk: 2 SCD applied (from Ns): Yes Pharmacological prophylaxis: other (scds) Lines/Catheters IV [facility]ter Type (from [facility] Mid Line Urinary Cath still in place: No Assessment/Plan Hospital Course Assessment: Hepatic encephalopathy Alcoholic liver disease with ascites- MELD 18 , (DF on admission 24.8) -Thrombocytopenia -Coagulopathy -Normocytic anemia Indirect hyperbilirubinemia- improved Elevated AST- slightly better today MIREYA- resolved-Nephrology following SBP- on Zosyn Fevers- 2/2 SBP patient empirically on Zosyn- improved -Blood cx and urine cx without - no growth -CXR-The lungs are clear of acute infiltrates, edema, effusions, or masses. There is mild left basilar atelectasis. -paracentesis today will r/o SBP- (paracentesis + for SBP) ETOH abuse Marijuana use Hypertension Homelessness -SW consulted Mild flattening and patchy sclerotic changes left femoral head, could be sequela of prior trauma or osteonecrosis. Plan: EGD tomorrow- will given FFP 2 units tonight adn recheck INR in am Pt with low BP- currently will not tolerate propranolol Vitamin K 10 SQ x3 doses- 2 dose today Continue Lactulose (titrate to 3-4 BM in a 24 hour period) continue Xifaxan 550mg po BID Encourage PO intake Continue current regimen sriram,ama- negative ASMA- low positive- will order LKM, IgG- unlikely + given low positive Patient seen in collaboration with Dr. Santos/Grzegorz Subjective: Course reviewed with nursing staff Patient interviewed and examined All labs, imaging and other results reviewed Patient feels much better post paracentesis today, no c/o abd pressure. No overt signs of GI bleed. HGB stable from yesterday, recommend EGD tomorrow vs near future Discussed plan for EGD pt is agreeable PHYSICAL EXAMINATION: GENERAL: Alert & oriented to name, in no acute distress SKIN: No lesions EYES: Pupils equal reactive to light, no discharge. EARS/NOSE AND THROAT: Ears normal, nose normal, oropharynx normal. NECK: Supple, no masses CHEST: Inspection within normal limits. CARDIOVASCULAR: Heart: Regular rate and rhythm RESPIRATORY: Lungs clear to auscultation and percussion, no wheezing, no rubs GASTROINTESTINAL AND LIVER: Abdomen: Soft, non tenderness, distended, no hernias, no masses, no organomegaly, ascites, no guarding, no rebound tenderness, normoactive bowel sounds. Rectal: Deferred. EXTREMITIES: BLE edema : swelling to scrotum Result Diagram: 09/10/18 0453 09/10/18 0453 Results 24hrs Laboratory Tests Test 09/09/18 17:50 09/10/18 04:53 Urine Color YELLOW Urine Clarity CLEAR Urine pH 5.0 Urine Specific [place] 1.020 Urine Ketones NEGATIVE Urine Nitrite NEGATIVE Urine Bilirubin NEGATIVE Urine Urobilinogen NEGATIVE Urine Leukocyte Esterase NEGATIVE Urine Microscopic RBC 40 H Urine Microscopic WBC 2 Urine Bacteria FEW A Urine Hemoglobin 1+ H Urine Glucose NEGATIVE Urine Total Protein NEGATIVE White Blood Count 6.0 # Red Blood Count 2.65 L Hemoglobin 8.3 L Hematocrit 24.3 L Mean Corpuscular Volume 91.7 Mean Corpuscular Hemoglobin 31.3 Mean Corpuscular Hemoglobin Concent 34.2 Red Cell Distribution Width 16.8 H Platelet Count 58 #L Mean Platelet Volume 9.9 Immature Granulocytes % 1.500 H Neutrophils % 67.0 Lymphocytes % 16.6 Monocytes % 12.4 H Eosinophils % 2.0 Basophils % 0.5 Nucleated Red Blood Cells % 0.0 Immature Granulocytes # 0.090 H Neutrophils # 4.1 Lymphocytes # 1.0 Monocytes # 0.8 Eosinophils # 0.1 Basophils # 0.0 Nucleated Red Blood Cells # 0.0 Sodium Level 138 Potassium Level 3.5 Chloride Level 113 H Carbon Dioxide Level 17 L Anion Gap 8 Blood Urea Nitrogen 15 Creatinine 1.01 Est Glomerular Filtrat Rate mL/min > 60 Glucose Level 79 Calcium Level 8.1 L Magnesium Level 1.8 Total Bilirubin 0.9 Direct Bilirubin 0.00 Indirect Bilirubin 0.9 Aspartate Amino Transf (AST/SGOT) 65 H Alanine Aminotransferase (ALT/SGPT) 40 Alkaline Phosphatase 91 Total Protein 5.5 L Albumin 2.3 L Globulin 3.20 Albumin/Globulin Ratio 0.71 Exam/Review of Systems Exam Vitals Vital Signs Date Temp Pulse Resp B/P (MAP) Pulse Ox O2 O2 Flow FiO2 Time Delivery Rate 09/10/18 97.9 69 18 101/74 100 Room Air 14:00 (83) Intake and Output 09/09/18 09/09/18 09/10/18 1515:00 23:00 07:00 IntakeIntake Total 1515.5 ml 700 ml 520 ml OutputOutput Total 250 ml BalanceBalance 1515.5 ml 450 ml 520 ml Results Results 24hrs Laboratory Tests Test 09/09/18 17:50 09/10/18 04:53 Urine Color YELLOW Urine Clarity CLEAR Urine pH 5.0 Urine Specific [place] 1.020 Urine Ketones NEGATIVE Urine Nitrite NEGATIVE Urine Bilirubin NEGATIVE Urine Urobilinogen NEGATIVE Urine Leukocyte Esterase NEGATIVE Urine Microscopic RBC 40 H Urine Microscopic WBC 2 Urine Bacteria FEW A Urine Hemoglobin 1+ H Urine Glucose NEGATIVE Urine Total Protein NEGATIVE White Blood Count 6.0 # Red Blood Count 2.65 L Hemoglobin 8.3 L Hematocrit 24.3 L Mean Corpuscular Volume 91.7 Mean Corpuscular Hemoglobin 31.3 Mean Corpuscular Hemoglobin Concent 34.2 Red Cell Distribution Width 16.8 H Platelet Count 58 #L Mean Platelet Volume 9.9 Immature Granulocytes % 1.500 H Neutrophils % 67.0 Lymphocytes % 16.6 Monocytes % 12.4 H Eosinophils % 2.0 Basophils % 0.5 Nucleated Red Blood Cells % 0.0 Immature Granulocytes # 0.090 H Neutrophils # 4.1 Lymphocytes # 1.0 Monocytes # 0.8 Eosinophils # 0.1 Basophils # 0.0 Nucleated Red Blood Cells # 0.0 Sodium Level 138 Potassium Level 3.5 Chloride Level 113 H Carbon Dioxide Level 17 L Anion Gap 8 Blood Urea Nitrogen 15 Creatinine 1.01 Est Glomerular Filtrat Rate mL/min > 60 Glucose Level 79 Calcium Level 8.1 L Magnesium Level 1.8 Total Bilirubin 0.9 Direct Bilirubin 0.00 Indirect Bilirubin 0.9 Aspartate Amino Transf (AST/SGOT) 65 H Alanine Aminotransferase (ALT/SGPT) 40 Alkaline Phosphatase 91 Total Protein 5.5 L Albumin 2.3 L Globulin 3.20 Albumin/Globulin Ratio 0.71 Medications Medication Current Medications Ondansetron HCl (Zofran Inj) 4 mg Q6H PRN IV NAUSEA/VOMITING; Start 09/04/18 at 16:00 Acetaminophen (Tylenol Tab) 650 mg Q6H PRN PO .PAIN 1-3 OR TEMP Last administered on 09/10/18at 05:11; Admin Dose 650 MG; Start 09/04/18 at 16:00 Docusate Sodium (Colace) 100 mg Q12 PO Last administered on 09/10/18 09:05; Admin Dose 100 MG; Start 09/04/18 at 16:00 Pantoprazole (Protonix Tab) 40 mg DAILY@06 PO Last administered on 09/10/18 05:11; Admin Dose 40 MG; Start 09/05/18 at 06:00 Lorazepam (Ativan) 1 mg Q4 PRN IV CONTROL WITHDRAWAL SYMPTOMS Last administered on 09/07/18 15:42; Admin Dose 1 MG; Start 09/07/18 at 07:00 Lactulose (Enulose) 20 gm TID PO Last administered on 09/10/18 09:05; Admin Dose 20 GM; Start 09/07/18 at 21:00 Rifaximin (Xifaxan) 550 mg BID PO Last administered on 09/10/18 09:05; Admin Dose 550 MG; Start 09/07/18 at 13:30 Spironolactone (Aldactone) 100 mg DAILY PO Last administered on 09/09/18 08:56; Admin Dose 100 MG; Start 09/07/18 at 13:30 Piperacillin Sod/ Tazobactam Sod 100 ml @ 200 mls/hr Q6 IVPB Last administered on 09/10/18 11:02; Admin Dose 200 MLS/HR; Start 09/07/18 at 13:30 Thiamine HCl (Vitamin B1) 100 mg DAILY PO Last administered on 09/10/18 09:05; Admin Dose 100 MG; Start 09/10/18 at 09:00 Folic Acid (Folic Acid) 1 mg DAILY PO Last administered on 09/10/18 09:05; Admin Dose 1 MG; Start 09/10/18 at 09:00 Phytonadione (Vitamin K) 10 mg DAILY SC Last administered on 09/10/18 09:06; Admin Dose 10 MG; Start 09/09/18 at 17:30; Stop 09/11/18 at 11:00 VIVIENNE SANCHEZ Sep 10, 2018 16:27
[2018-09-10 20:38] VITALS: BP 92/44; PULSE 83; RESP 18
[2018-09-11] VITALS (9 sets, daily range): BP systolic 94–135; BP diastolic 50–69; PULSE 18–93; RESP 14–19
[2018-09-11] MEDS: PIPER-TAZO 3.375 GM IV (PMX) 100 ML IVPB SCH ×2 (03:19→06:45)
[2018-09-11] MEDS: PANTOPRAZOLE (EC) 40 MG TAB PO SCH (06:00)
[2018-09-11] MEDS ORDERED: PROPOFOL 200 MG INJ ONE (07:00)
[2018-09-11] MEDS ORDERED: POTASSIUM CHLORIDE (SR) 20 MEQ TAB PO STA (08:05)
[2018-09-11] MEDS ORDERED: MAGNESIUM SULFATE 2 GM/50 ML 50 ML IVPB ONE (08:30)
[2018-09-11] MEDS ORDERED: SOD CHLORIDE 0.9% 1,000 ML IV SCH (08:30)
[2018-09-11] MEDS: DOCUSATE SODIUM 100 MG CAP PO SCH ×2 (09:00→21:00)
[2018-09-11] MEDS: SPIRONOLACTONE 50 MG TAB PO SCH (09:00)
[2018-09-11] MEDS: FOLIC ACID 1 MG TAB PO SCH (09:00)
[2018-09-11] MEDS: LACTULOSE 30ML CUP PO SCH ×3 (09:00→21:00)
[2018-09-11] MEDS: RIFAXIMIN 550 MG TAB PO SCH ×2 (09:00→21:01)
[2018-09-11] MEDS: THIAMINE 100 MG TAB PO SCH (09:00)
[2018-09-11] MEDS: PHYTONADIONE 10 MG/ML INJ SC SCH (10:02)
--- NOTE | 2018-09-11 11:38 | CONS ---
Assessment/Plan Assessment/Plan Hospital Course (Demo Recall) All noted, No acute events. Patient looks comfortable, no fvers, s/p paracentesis yesterday Microbiology: All cultures negative Antimicrobials: Zosyn #5 Physical examination: Well-developed ill-appearing middle-aged man who is alert in no distress. Head atraumatic normocephalic. Neck is supple. Heart: S1-S2. Lungs: Breath sounds diminished bases. Abdomen distended, tympany on perc ussion, bowel sounds diminished. Patient has penoscrotal edema. Extremities without cyanosis. Assessment: 1. Decompensated alcoholic liver cirrhosis 2. Recurrent ascites status post paracentesis 09/08, 09/10 3. Probable SBP per cytology 4. Acute kidney injury on admission 5. Penoscrotal edema Plan: Stable, change abx to PO Cipro and Doxycycline, GI recommendations Consultation Date/Type/Reason Admit Date/Time Sep 04, 2018 at 11:46 Initial Consult Date 09/07/18 Type of Consult id Date/Time of Note DATE: 09/11/18 TIME: 11:36 Exam/Review of Systems Exam Vitals Vital Signs Date Temp Pulse Resp B/P (MAP) Pulse Ox O2 O2 Flow FiO2 Time Delivery Rate 09/11/18 97.9 18 18 96/50 (65) 99 07:53 09/10/18 Room Air 14:00 Intake and Output 09/10/18 09/10/18 09/11/18 1515:00 23:00 07:00 IntakeIntake Total 780 ml 520 ml 715 ml OutputOutput Total 600 ml 300 ml BalanceBalance 180 ml 220 ml 715 ml Results Result Diagram: 09/11/18 0434 09/11/18 0434 Results 24hrs Laboratory Tests Test 09/10/18 16:15 09/11/18 04:34 09/11/18 09:32 Prothrombin Time 23.6 #H 20.9 H Prothrombin Time Ratio 1.8 1.6 INR International 2.10 1.79 Normalized Ratio White Blood Count 4.9 Red Blood Count 2.62 L Hemoglobin 8.1 L Hematocrit 23.6 L Mean Corpuscular Volume 90.1 Mean Corpuscular Hemoglobin 30.9 Mean Corpuscular 34.3 Hemoglobin Concent Red Cell Distribution Width 16.7 H Platelet Count 62 L Mean Platelet Volume 9.2 Immature Granulocytes % 2.600 H Neutrophils % 61.2 Lymphocytes % 19.4 Monocytes % 14.4 H Eosinophils % 2.0 Basophils % 0.4 Nucleated Red Blood Cells % 0.0 Immature Granulocytes # 0.130 H Neutrophils # 3.0 Lymphocytes # 1.0 Monocytes # 0.7 Eosinophils # 0.1 Basophils # 0.0 Nucleated Red Blood Cells # 0.0 Sodium Level 138 Potassium Level 3.3 L Chloride Level 113 H Carbon Dioxide Level 19 L Anion Gap 6 Blood Urea Nitrogen 14 Creatinine 0.89 Est Glomerular Filtrat > 60 Rate mL/min Glucose Level 81 Calcium Level 8.5 Phosphorus Level 2.9 Magnesium Level 1.5 L Alpha Fetoprotein 1.34 Lab Scanned Report REFERENCE LAB Medications Medication Current Medications Ondansetron HCl (Zofran Inj) 4 mg Q6H PRN IV NAUSEA/VOMITING; Start 09/04/18 at 16:00 Acetaminophen (Tylenol Tab) 650 mg Q6H PRN PO .PAIN 1-3 OR TEMP Last administered on 09/10/18 05:11; Admin Dose 650 MG; Start 09/04/18 at 16:00 Docusate Sodium (Colace) 100 mg Q12 PO Last administered on 09/10/18 20:33; Admin Dose 100 MG; Start 09/04/18 at 16:00 Pantoprazole (Protonix Tab) 40 mg DAILY@06 PO Last administered on 09/10/18 05:11; Admin Dose 40 MG; Start 09/05/18 at 06:00 Lorazepam (Ativan) 1 mg Q4 PRN IV CONTROL WITHDRAWAL SYMPTOMS Last administered on 09/07/18 15:42; Admin Dose 1 MG; Start 09/07/18 at 07:00 Lactulose (Enulose) 20 gm TID PO Last administered on 09/10/18 20:33; Admin Dose 20 GM; Start 09/07/18 at 21:00 Rifaximin (Xifaxan) 550 mg BID PO Last administered on 09/10/18 20:33; Admin Dose 550 MG; Start 09/07/18 at 13:30 Spironolactone (Aldactone) 100 mg DAILY PO Last administered on 09/09/18 08:56; Admin Dose 100 MG; Start 09/07/18 at 13:30 Piperacillin Sod/ Tazobactam Sod 100 ml @ 200 mls/hr Q6 IVPB Last administered on 09/11/18 06:45; Admin Dose 200 MLS/HR; Start 09/07/18 at 13:30 Thiamine HCl (Vitamin B1) 100 mg DAILY PO Last administered on 09/10/18at 09:05; Admin Dose 100 MG; Start 09/10/18 at 09:00 Folic Acid (Folic Acid) 1 mg DAILY PO Last administered on 09/10/18 09:05; Admin Dose 1 MG; Start 09/10/18 at 09:00 Sodium Chloride 1,000 ml @ 50 mls/hr Q20H IV Last administered on 09/11/18at 08:23; Admin Dose 50 MLS/HR; Start 09/11/18 at 08:30 DANYELLE LAW NP Sep 11, 2018 11:38
--- NOTE | 2018-09-11 11:48 | PN ---
DATE: 09/11/2018 SUBJECTIVE: The patient is lethargic, currently n.p.o. pending endoscopy. No other events noted. Th e patient also had minimal urinary output overnight. OBJECTIVE: VITAL SIGNS: Blood pressure is 96/50, respiration 18, pulse , temperature 97.9. HEENT: Head is normocephalic. NECK: Supple. HEART: Regular rate. LUNGS: Show diminished breath sounds at base. ABDOMEN: Soft, nontender to palpation without rebound or guarding. EXTREMITIES: Negative for clubbing, cyanosis. Trace edema. DERMATOLOGIC: No rashes. MUSCULOSKELETAL: No joint effusions. NEUROLOGIC: No change in exam. MEDICATIONS: Reviewed. LABORATORY DATA: Shows a white count 4.9, hemoglobin 8.1, platelet count 62, sodium 138, potassium 3 .3, BUN 14, creatinine 0.89, magnesium 1.5. ASSESSMENT AND PLAN: 1. Nonoliguric acute kidney injury. Previous baseline creatinine of 0.6 mg/dL. Etiology is seconda ry to hemodynamics, volume depletion. The patient's renal function has slowly been improving. Babak nue current treatment plan, continue supportive care, continue gentle IV hydration. 2. Hypokalemia. Continue to monitor and replete. 3. Anemia. Monitor hemoglobin and hematocrit. 4. Acidosis. Etiology may be compensatory due to underlying tachypnea, continue to monitor. 5. Mineral bone disorder, monitor calcium and phosphorus levels. 6. Decompensated ETOH cirrhosis. The patient has noted ascites, encephalopathy. 7. Hypertension. Continue to monitor. Follow up with GI. 8. History of ETOH abuse. 9. Urinary retention, status post [place] catheter placement. Dictated By: HELEN RAMOS/NTS Conf#: [id number] DID#: [id number] CC: AJAY SAUCEDA MD;*EndCC*
--- NOTE | 2018-09-11 12:43 | PN ---
Date/Time of Note Date/Time of Note DATE: 09/11/18 TIME: 12:38 Assessment/Plan VTE Prophylaxis Risk score (from Ns)>0 risk: 2 SCD applied (from Ns): Yes Pharmacological prophylaxis: NA/contraindicated Pharm contraindication: low risk/ambulating Lines/Catheters IV Catheter Type (from Nrsg): Mid Line Urinary Cath still in place: No Assessment/Plan Hospital Course SUBJECTIVE: Today patient with much improved abdominal discomfort and distention. Afebrile. Tolerating diet. OBJECTIVE: Vital signs-see below PHYSICAL EXAM: Constitutional: Serbian-speaking male, not in acute distress. Psych: nl mood/affect, no complaints Head: atraumatic, normocephalic Eyes: nl conjunctiva, nl sclera ENMT: mucosa pink and moist, nl external ears & nose Neck: non-tender, supple Respiratory: clear to auscultation, normal air movement Cardiovascular: nl pulses, regular rate and rhythm Gastrointestinal: +DISTENDED/tender RLQ, bowel sounds active in all 4 quadrants. Musculoskeletal/extremities: nl extremities to inspection, motor strength equal bilaterally, no focal deficit. Normal pulses,no cyanosis, no edema. Neurological: Alert oriented 2,nl speech, nl strength Skin: nl turgor :+Edema scrotum/penile ASSESSMENT/PLAN: 52-year-old homeless male with alcoholism, alcoholic liver cirrhosis, ascites here with altered mental status. 1.Decompensated Alcoholic liver disease with sequela of large volume ascites/coagulopathy/portal HTN -s/p paracentesis 09/08/18, 09/10/2018 -Management per GI team. Receiving vitamin K injection. -on Aldactone,Corgard. Patient with stable renal function, will resume Lasix lower dose. -2 g sodium diet 2. Presumptive SBP based on fluid analysis. -Cultures negative, continue Cipro/Doxy per ID recommendations. -Follow-up final fungal studies. 3. Abdominal pain, likely secondary to #1. -GI also recommending EGD which is scheduled tomorrow. -Follow-up recommendations 4.MIREYA,Oliguric, -likely culprit lasix -Resolved. -Management per nephrology -We will monitor renal function closely as we will restart patient on Lasix. 5. Hepatic encephalopathy -stable. -cont. thiamine, lactulose and rifaximin 6.Essential hypertension -Stable. Continue antihypertensives 7. Anemia of alcoholic liver disease. -Stable H&H. Continue to monitor. 8. Alcohol abuse -Advised on cessation. 9. Homelessness -ditch worker follow-up 10. Substance abuse -Urine toxicology positive for cannabinoids and alcohol. -Cessation advised DVT prophylaxis: SCDs/ambulation PUD prophylaxis: Protonix Disposition: Follow-up GI recommendations. Patient was seen in collaboration with Result Diagram: 09/11/18 0434 09/11/18 0434 Results 24hrs Laboratory Tests Test 09/10/18 16:15 09/11/18 04:34 09/11/18 09:32 Prothrombin Time 23.6 #H 20.9 H Prothrombin Time Ratio 1.8 1.6 INR International 2.10 1.79 Normalized Ratio White Blood Count 4.9 Red Blood Count 2.62 L Hemoglobin 8.1 L Hematocrit 23.6 L Mean Corpuscular Volume 90.1 Mean Corpuscular Hemoglobin 30.9 Mean Corpuscular 34.3 Hemoglobin Concent Red Cell Distribution Width 16.7 H Platelet Count 62 L Mean Platelet Volume 9.2 Immature Granulocytes % 2.600 H Neutrophils % 61.2 Lymphocytes % 19.4 Monocytes % 14.4 H Eosinophils % 2.0 Basophils % 0.4 Nucleated Red Blood Cells % 0.0 Immature Granulocytes # 0.130 H Neutrophils # 3.0 Lymphocytes # 1.0 Monocytes # 0.7 Eosinophils # 0.1 Basophils # 0.0 Nucleated Red Blood Cells # 0.0 Sodium Level 138 Potassium Level 3.3 L Chloride Level 113 H Carbon Dioxide Level 19 L Anion Gap 6 Blood Urea Nitrogen 14 Creatinine 0.89 Est Glomerular Filtrat > 60 Rate mL/min Glucose Level 81 Calcium Level 8.5 Phosphorus Level 2.9 Magnesium Level 1.5 L Alpha Fetoprotein 1.34 Lab Scanned Report REFERENCE LAB Exam/Review of Systems Exam Vitals Vital Signs Date Temp Pulse Resp B/P (MAP) Pulse Ox O2 O2 Flow FiO2 Time Delivery Rate 09/11/18 97.9 18 18 96/50 (65) 99 07:53 09/10/18 Room Air 14:00 Intake and Output 09/10/18 09/10/18 09/11/18 1515:00 23:00 07:00 IntakeIntake Total 780 ml 520 ml 715 ml OutputOutput Total 600 ml 300 ml BalanceBalance 180 ml 220 ml 715 ml Results Results 24hrs Laboratory Tests Test 09/10/18 16:15 09/11/18 04:34 09/11/18 09:32 Prothrombin Time 23.6 #H 20.9 H Prothrombin Time Ratio 1.8 1.6 INR International 2.10 1.79 Normalized Ratio White Blood Count 4.9 Red Blood Count 2.62 L Hemoglobin 8.1 L Hematocrit 23.6 L Mean Corpuscular Volume 90.1 Mean Corpuscular Hemoglobin 30.9 Mean Corpuscular 34.3 Hemoglobin Concent Red Cell Distribution Width 16.7 H Platelet Count 62 L Mean Platelet Volume 9.2 Immature Granulocytes % 2.600 H Neutrophils % 61.2 Lymphocytes % 19.4 Monocytes % 14.4 H Eosinophils % 2.0 Basophils % 0.4 Nucleated Red Blood Cells % 0.0 Immature Granulocytes # 0.130 H Neutrophils # 3.0 Lymphocytes # 1.0 Monocytes # 0.7 Eosinophils # 0.1 Basophils # 0.0 Nucleated Red Blood Cells # 0.0 Sodium Level 138 Potassium Level 3.3 L Chloride Level 113 H Carbon Dioxide Level 19 L Anion Gap 6 Blood Urea Nitrogen 14 Creatinine 0.89 Est Glomerular Filtrat > 60 Rate mL/min Glucose Level 81 Calcium Level 8.5 Phosphorus Level 2.9 Magnesium Level 1.5 L Alpha Fetoprotein 1.34 Lab Scanned Report REFERENCE LAB Medications Medication Current Medications Ondansetron HCl (Zofran Inj) 4 mg Q6H PRN IV NAUSEA/VOMITING; Start 09/04/18 at 16:00 Acetaminophen (Tylenol Tab) 650 mg Q6H PRN PO .PAIN 1-3 OR TEMP Last administered on 09/10/18at 05:11; Admin Dose 650 MG; Start 09/04/18 at 16:00 Docusate Sodium (Colace) 100 mg Q12 PO Last administered on 09/10/18at 20:33; Admin Dose 100 MG; Start 09/04/18 at 16:00 Pantoprazole (Protonix Tab) 40 mg DAILY@06 PO Last administered on 09/10/18at 05:11; Admin Dose 40 MG; Start 09/05/18 at 06:00 Lorazepam (Ativan) 1 mg Q4 PRN IV CONTROL WITHDRAWAL SYMPTOMS Last administered on 09/07/18at 15:42; Admin Dose 1 MG; Start 09/07/18 at 07:00 Lactulose (Enulose) 20 gm TID PO Last administered on 09/10/18 20:33; Admin Dose 20 GM; Start 09/07/18 at 21:00 Rifaximin (Xifaxan) 550 mg BID PO Last administered on 09/10/18 20:33; Admin Dose 550 MG; Start 09/07/18 at 13:30 Spironolactone (Aldactone) 100 mg DAILY PO Last administered on 09/09/18 08:56; Admin Dose 100 MG; Start 09/07/18 at 13:30 Thiamine HCl (Vitamin B1) 100 mg DAILY PO Last administered on 09/10/18 09:05; Admin Dose 100 MG; Start 09/10/18 at 09:00 Folic Acid (Folic Acid) 1 mg DAILY PO Last administered on 09/10/18 09:05; Admin Dose 1 MG; Start 09/10/18 at 09:00 Sodium Chloride 1,000 ml @ 50 mls/hr Q20H IV Last administered on 09/11/18 08:23; Admin Dose 50 MLS/HR; Start 09/11/18 at 08:30 Ciprofloxacin (Cipro) 500 mg BID@06,18 PO ; Start 09/11/18 at 18:00 Doxycycline Hyclate (Vibramycin) 100 mg BID PO ; Start 09/11/18 at 13:00 VIRAJ LUU NP Sep 11, 2018 12:43
[2018-09-11] MEDS: DOXYCYCLINE 100 MG TAB PO SCH ×2 (13:00→21:00)
--- NOTE | 2018-09-11 15:27 | PREAC ---
Date/Time of Note Date/Time of Note DATE: 09/11/18 TIME: 15: Anesthesia Eval and Record Evaluation Time Pre-Procedure Interview DATE: 09/11/18 TIME: 15: Age 52 Sex male NPO: 8 hrs Preoperative diagnosis abdominal pain, liver cirrhosis Planned procedure EGD Past Medical History Past Medical History: Includes Cardio: HTN Hepatic: Alcohol abuse, Cirrhosis Heme: Anemia, Thrombocytopenia Recreational drugs: Marijuana Surgery & Anesthesia Issues No known issue Meds Anticoagulation: No Beta Lotus within 24 hr: No Reason Beta Lotus not given: Pt. not on B-Lotus Active Scripts Spironolactone* (Spironolactone*) 100 Mg Tablet, 100 MG PO DAILY for 30 Days, TA B Prov:TIERRA FREEMAN 09/03/18 Propranolol Hcl* (Propranolol Hcl*) 20 Mg Tablet, 20 MG PO TID for 30 Days, TAB Prov:TIERRA FREEMAN 09/03/18 Pantoprazole* (Pantoprazole*) 40 Mg Tablet.dr, 40 MG PO DAILY for 30 Days Prov:TIERRA FREEMAN 09/03/18 Thiamine* (Vitamin B-1*) 100 Mg Tablet, 100 MG PO DAILY for 30 Days, TAB Prov:NATHANIEL ESCOBAR 01/08/16 Meclizine Hcl* (Antivert*) 25 Mg Tablet, 25 MG PO TID, #60 TAB Prov:NATHANIEL ESCOBAR 01/08/16 Folic Acid* (Folic Acid*) 1 Mg Tablet, 1 MG PO DAILY for 30 Days, TAB Prov:NATHANIEL ESCOBAR 01/08/16 Ferrous Sulfate* (Ferrous Sulfate*) 325 Mg Tabec, 325 MG PO TID for 30 Days, TAB Prov:NATHANIEL ESCOBAR 01/08/16 Discontinued Scripts Benzonatate* (Tessalon Perle*) 100 Mg Capsule, 100 MG PO Q8H PRN for COUGH for 3 Days, #10 CAP Prov:IRAM,FRANCY 10/17/17 Ibuprofen* (Motrin*) 600 Mg Tab, 600 MG PO Q6, #30 TAB Prov:IRAM,FRANCY 10/17/17 Current Medications Ondansetron HCl (Zofran Inj) 4 mg Q6H PRN IV NAUSEA/VOMITING; Start 09/04/18 at 16:00 Acetaminophen (Tylenol Tab) 650 mg Q6H PRN PO .PAIN 1-3 OR TEMP Last administered on 09/10/18 05:11; Admin Dose 650 MG; Start 09/04/18 at 16:00 Docusate Sodium (Colace) 100 mg Q12 PO Last administered on 09/10/18 20:33; Admin Dose 100 MG; Start 09/04/18 at 16:00 Pantoprazole (Protonix Tab) 40 mg DAILY@06 PO Last administered on 09/10/18 05:11; Admin Dose 40 MG; Start 09/05/18 at 06:00 Lorazepam (Ativan) 1 mg Q4 PRN IV CONTROL WITHDRAWAL SYMPTOMS Last administered on 09/07/18 15:42; Admin Dose 1 MG; Start 09/07/18 at 07:00 Lactulose (Enulose) 20 gm TID PO Last administered on 09/10/18 20:33; Admin Dose 20 GM; Start 09/07/18 at 21:00 Rifaximin (Xifaxan) 550 mg BID PO Last administered on 09/10/18 20:33; Admin Dose 550 MG; Start 09/07/18 at 13:30 Spironolactone (Aldactone) 100 mg DAILY PO Last administered on 09/09/18 08:56; Admin Dose 100 MG; Start 09/07/18 at 13:30 Thiamine HCl (Vitamin B1) 100 mg DAILY PO Last administered on 09/10/18 09:05; Admin Dose 100 MG; Start 09/10/18 at 09:00 Folic Acid (Folic Acid) 1 mg DAILY PO Last administered on 09/10/18 09:05; Admin Dose 1 MG; Start 09/10/18 at 09:00 Sodium Chloride 1,000 ml @ 50 mls/hr Q20H IV Last administered on 09/11/18 08:23; Admin Dose 50 MLS/HR; Start 09/11/18 at 08:30 Ciprofloxacin (Cipro) 500 mg BID@06,18 PO ; Start 09/11/18 at 18:00 Doxycycline Hyclate (Vibramycin) 100 mg BID PO ; Start 09/11/18 at 13:00 Furosemide (Lasix) 20 mg BID DIURETICS PO ; Start 09/11/18 at 18:00 Meds reviewed: Yes Allergies Coded Allergies: No Known Allergy (Unverified , 09/04/18) Allergies Reviewed: Yes Labs/Studies Labs Reviewed: Reviewed by anesthesiologist Result Diagram: 09/11/18 0434 09/11/18 0434 Laboratory Tests 09/11/18 04:34 Blood Bank Test 09/10/18 20:16 Antibody Screen NEGATIVE Blood Product Summary Counts Blood Type A POSITIVE test: N/A Pre-procedure Exam Last vitals Vital Signs Date Temp Pulse Resp B/P (MAP) Pulse Ox O2 O2 Flow FiO2 Time Delivery Rate 09/11/18 98.0 80 18 106/58 99 14:00 (74) 09/10/18 Room Air 14:00 Airway: Adequate mouth opening, Adequate thyromental dist Mallampati: Mallampati II Teeth: Normal Lung: Normal Heart: Normal ASA Physical Status ASA physical status: 3 Emergency: None Planned Anesthetic General/MAC: Mask Planned Pain Management Parenteral pain med Pre-operative Attestations Prior to commencing anesthesia and surgery, the patient was re-evaluated, there was verification of: *The patient's identity *The results of appropriate recent lab work and preoperative vital signs *The above evaluation not changing prior to induction *Anesthetic plan, risk benefits, alternative and complications discussed with patient/family; questions answered; patient/family understands, accepts and wishes to proceed. ILIANA REINOSO MD Sep 11, 2018 15:27
[2018-09-11] MEDS ORDERED: PROPOFOL 40 ML ONE (15:29)
[2018-09-11] MEDS ORDERED: LIDOCAINE 2% (SDV) 5 ML INJ ONE (15:29)
[2018-09-11] MEDS ORDERED: ONDANSETRON 4 MG INJ IV PRN (15:30)
[2018-09-11] MEDS ORDERED: EPHEDrine SULFATE 50 MG/5 ML SYG ONE (15:49)
--- NOTE | 2018-09-11 16:02 | PAC ---
Date/Time of Note Date/Time of Note DATE: 09/11/18 TIME: 16:01 Post-Anesthesia Notes Post-Anesthesia Note Last documented vital signs Vital Signs Date Temp Pulse Resp B/P (MAP) Pulse Ox O2 O2 Flow FiO2 Time Delivery Rate 09/11/18 97.0 79 18 103/57 99 Room Air 15:31 (72) Activity: WNL Respiratory function: WNL Cardiovascular function: WNL Mental status: Baseline Pain reasonably controlled: Yes Hydration appropriate: Yes Nausea/Vomiting absent: Yes Comments BP: 135/75 HR: 89 RR: 15 T: 98 SaO2: 100% ILIANA REINOSO MD Sep 11, 2018 16:02
--- NOTE | 2018-09-11 16:09 | HPN ---
Date/Time of Note Date/Time of Note DATE: 09/11/18 TIME: 16:09 Interval H&P Admission Note Pt. seen H&P reviewed: No system changes ANIKET GAMEZ Sep 11, 2018 16:09
[2018-09-11] MEDS: FUROSEMIDE 20 MG TAB PO SCH (17:31)
[2018-09-11] MEDS: CIPROFLOXACIN 500 MG TAB PO SCH (17:31)
[2018-09-11] MEDS: ACETAMINOPHEN 325 MG TAB PO PRN (21:02)
[2018-09-12 02:00] VITALS: BP 115/61; PULSE 85; RESP 18
[2018-09-12] MEDS: CIPROFLOXACIN 500 MG TAB PO SCH ×2 (05:16→17:14)
[2018-09-12] MEDS: PANTOPRAZOLE (EC) 40 MG TAB PO SCH (05:17)
[2018-09-12] MEDS: FUROSEMIDE 20 MG TAB PO SCH ×3 (05:17→17:13)
[2018-09-12 08:00] VITALS: BP 102/59; PULSE 81; RESP 18
[2018-09-12] MEDS: LACTULOSE 30ML CUP PO SCH ×4 (08:20→20:26)
[2018-09-12] MEDS: THIAMINE 100 MG TAB PO SCH (08:21)
[2018-09-12] MEDS: DOCUSATE SODIUM 100 MG CAP PO SCH ×2 (08:21→20:26)
[2018-09-12] MEDS: SPIRONOLACTONE 50 MG TAB PO SCH (08:21)
[2018-09-12] MEDS: FOLIC ACID 1 MG TAB PO SCH (08:21)
[2018-09-12] MEDS: DOXYCYCLINE 100 MG TAB PO SCH ×2 (08:21→20:27)
[2018-09-12] MEDS: RIFAXIMIN 550 MG TAB PO SCH ×2 (08:22→20:27)
--- NOTE | 2018-09-12 11:11 | PN ---
Date/Time of Note Date/Time of Note DATE: 09/12/18 TIME: 11:07 Assessment/Plan VTE Prophylaxis [place] [facility] [place]: 2 SCD applied ([place] [facility] [place] No SCD contraindicated: low risk/ambulating Pharmacological prophylaxis: NA/contraindicated Pharm contraindication: blood coag disorder Lines/Catheters IV [facility] Mid Line Urinary Cath still in place: No Assessment/Plan Problems: (1) Alcoholic cirrhosis of liver with ascites Status: Chronic Comment: Patient is on combination of beta-blockade, spironolactone, furosemide with now stable renal function. Continue to diurese him to deal with the portal hypertension. Denies being treated for presumed spontaneous bacterial p eritonitis. Medications have been given timelines as per ID (2) Portal hypertensive gastropathy Status: Chronic Comment: Noted on the EGD. On full treatment (3) Essential hypertension Status: Chronic Comment: Noted and stable beta-blockade (4) Debility Status: Chronic Comment: Noted. He does have evidence of some monilial go ahead and give him a couple of days of fluconazole to deal with that. (5) Hyperammonemia Status: Acute Comment: Improved with rifaximin Result Diagram: 09/12/18 0652 09/12/18 0652 Results 24hrs Laboratory Tests Test 09/12/18 06:52 White Blood Count 4.2 L Red Blood Count 2.50 L Hemoglobin 8.0 L Hematocrit 22.9 L Mean Corpuscular Volume 91.6 Mean Corpuscular Hemoglobin 32.0 Mean Corpuscular Hemoglobin Concent 34.9 Red Cell Distribution Width 16.8 H Platelet Count 72 L Mean Platelet Volume 9.4 Immature Granulocytes % 1.900 H Neutrophils % 56.0 Lymphocytes % 22.0 Monocytes % 16.8 H Eosinophils % 2.8 Basophils % 0.5 Nucleated Red Blood Cells % 0.0 Immature Granulocytes # 0.080 H Neutrophils # 2.4 Lymphocytes # 0.9 Monocytes # 0.7 Eosinophils # 0.1 Basophils # 0.0 Nucleated Red Blood Cells # 0.0 Sodium Level 139 Potassium Level 3.6 Chloride Level 112 H Carbon Dioxide Level 19 L Anion Gap 8 Blood Urea Nitrogen 13 Creatinine 0.81 Est Glomerular Filtrat Rate mL/min > 60 Glucose Level 80 Calcium Level 8.4 Phosphorus Level 3.1 Magnesium Level 1.3 L Subjective 24 Hr Interval Summary Free Text/Dictation Patient reports she is extremely concerned about the penile swelling that he has. Constitutional: no complaints (No fevers chills or sweats) Respiratory: no complaints Cardiovascular: no complaints Gastrointestinal: no complaints (No abdominal pain no nausea no vomiting) Genitourinary: other (Swelling) Exam/Review of Systems Exam Vitals Vital Signs Date Temp Pulse Resp B/P (MAP) Pulse Ox O2 O2 Flow FiO2 Time Delivery Rate 09/12/18 98.0 81 18 102/59 98 08:00 (73) 09/11/18 Room Air 16:18 09/11/18 10 15:43 Intake and Output 09/11/18 09/11/18 09/12/18 1515:00 23:00 07:00 IntakeIntake Total 150 ml 540 ml 300 ml OutputOutput Total 500 ml 300 ml BalanceBalance -350 ml 240 ml 300 ml Constitutional: alert, oriented Neck: supple, non-tender Respiratory: clear to auscultation, normal air movement Cardiovascular: regular rate and rhythm, nl pulses Gastrointestinal: soft, nl liver, spleen, ascites (Ascites present) Genitourinary - Male: other (Penile swelling and he has a [place] catheter in place) Results Results 24hrs Laboratory Tests Test 09/12/18 06:52 White Blood Count 4.2 L Red Blood Count 2.50 L Hemoglobin 8.0 L Hematocrit 22.9 L Mean Corpuscular Volume 91.6 Mean Corpuscular Hemoglobin 32.0 Mean Corpuscular Hemoglobin Concent 34.9 Red Cell Distribution Width 16.8 H Platelet Count 72 L Mean Platelet Volume 9.4 Immature Granulocytes % 1.900 H Neutrophils % 56.0 Lymphocytes % 22.0 Monocytes % 16.8 H Eosinophils % 2.8 Basophils % 0.5 Nucleated Red Blood Cells % 0.0 Immature Granulocytes # 0.080 H Neutrophils # 2.4 Lymphocytes # 0.9 Monocytes # 0.7 Eosinophils # 0.1 Basophils # 0.0 Nucleated Red Blood Cells # 0.0 Sodium Level 139 Potassium Level 3.6 Chloride Level 112 H Carbon Dioxide Level 19 L Anion Gap 8 Blood Urea Nitrogen 13 Creatinine 0.81 Est Glomerular Filtrat Rate mL/min > 60 Glucose Level 80 Calcium Level 8.4 Phosphorus Level 3.1 Magnesium Level 1.3 L Medications Medication Current Medications Ondansetron HCl (Zofran Inj) 4 mg Q6H PRN IV NAUSEA/VOMITING; Start 09/04/18 at 16:00 Acetaminophen (Tylenol Tab) 650 mg Q6H PRN PO .PAIN 1-3 OR TEMP Last administered on 09/11/18 21:02; Admin Dose 650 MG; Start 09/04/18 at 16:00 Docusate Sodium (Colace) 100 mg Q12 PO Last administered on 09/12/18 08:21; Admin Dose 100 MG; Start 09/04/18 at 16:00 Pantoprazole (Protonix Tab) 40 mg DAILY@06 PO Last administered on 09/12/18 05:17; Admin Dose 40 MG; Start 09/05/18 at 06:00 Lorazepam (Ativan) 1 mg Q4 PRN IV CONTROL WITHDRAWAL SYMPTOMS Last administered on 09/07/18 15:42; Admin Dose 1 MG; Start 09/07/18 at 07:00 Lactulose (Enulose) 20 gm TID PO Last administered on 09/12/18 08:20; Admin Dose 20 GM; Start 09/07/18 at 21:00 Rifaximin (Xifaxan) 550 mg BID PO Last administered on 09/12/18 08:22; Admin Dose 550 MG; Start 09/07/18 at 13:30 Spironolactone (Aldactone) 100 mg DAILY PO Last administered on 09/12/18 08:2 1; Admin Dose 100 MG; Start 09/07/18 at 13:30 Thiamine HCl (Vitamin B1) 100 mg DAILY PO Last administered on 09/12/18 08:21; Admin Dose 100 MG; Start 09/10/18 at 09:00 Folic Acid (Folic Acid) 1 mg DAILY PO Last administered on 09/12/18 08:21; Admin Dose 1 MG; Start 09/10/18 at 09:00 Ciprofloxacin (Cipro) 500 mg BID@,18 PO Last administered on 09/12/18 05:16; Admin Dose 500 MG; Start 09/11/18 at 18:00; Stop 09/25/18 at 17:59 Doxycycline Hyclate (Vibramycin) 100 mg BID PO Last administered on 09/12/18 08:21; Admin Dose 100 MG; Start 09/11/18 at 13:00; Stop 09/25/18 at 12:59 Furosemide (Lasix) 20 mg BID DIURETICS PO Last administered on 09/12/18at 08:22; Admin Dose 20 MG; Start 09/11/18 at 18:00 Magnesium Sulfate 3 gm/Dextrose 106 ml @ 35.333 mls/ hr ONCE ONCE IVPB ; Start 09/12/18 at 12:00; Stop 09/12/18 at 14:59 NAY BRYANT MD Sep 12, 2018 11:11
[2018-09-12] MEDS ORDERED: POTASSIUM CHLORIDE (SR) 10 MEQ TAB PO ONE (11:30)
[2018-09-12] MEDS ORDERED: FUROSEMIDE 20 MG INJ IV ONE (11:30)
[2018-09-12] MEDS: NADOLOL 40 MG TAB PO SCH (12:00)
[2018-09-12] MEDS ORDERED: MAGNESIUM SULFATE 3 GM in DEXTROSE 5% 100 ML IVPB ONE (12:00)
[2018-09-12] MEDS: FLUCONAZOLE 200 MG TAB PO SCH (12:29)
--- NOTE | 2018-09-12 13:10 | PN ---
Date/Time of Note Date/Time of Note DATE: 09/12/18 TIME: 13:04 Assessment/Plan VTE Prophylaxis Risk score (from Ns)>0 risk: 2 SCD applied (from Ns): No SCD contraindicated: other (scds) Pharmacological prophylaxis: other (scds) Lines/Catheters [facility] (from [facility] Mid Line Urinary Cath still in place: No Assessment/Plan Hospital Course Assessment: Hepatic encephalopathy- improved Alcoholic liver disease with ascites- MELD 18 , (DF on admission 24.8) -Thrombocytopenia- stable -Coagulopathy -Normocytic anemia- stable EGD 09/11/18 Evidence of portal hypertension No esophageal varices Portal hypertensive gastropathy Minimal distal esophagitis Indirect hyperbilirubinemia- resolved Elevated AST- slightly better today MIREYA- resolved-Nephrology following SBP- on Zosyn Fevers- 08/29 SBP patient empirically on Zosyn- improved -Blood cx and urine cx without - no growth -CXR-The lungs are clear of acute infiltrates, edema, effusions, or masses. There is mild left basilar atelectasis. -paracentesis today will r/o SBP- (paracentesis + for SBP) ETOH abuse Marijuana use Hypertension Homelessness -SW consulted Mild flattening and patchy sclerotic changes left femoral head, could be sequela of prior trauma or osteonecrosis. Plan: Continue Spironolactone/Lasix/nadolol for portal HTN- monitor lab closely Continue Lactulose (titrate to 3-4 BM in a 24 hour period) continue Xifaxan 550mg po BID Encourage PO intake ASMA- low positive- will order LKM, IgG- unlikely (+)given low positive D/c planning per hospitalist- Patient seen in collaboration with Dr. Santos/Grzegorz Subjective: Course reviewed with nursing staff Patient interviewed and examined All labs, imaging and other results reviewed No over night events, pt feels ok, concerned about P no swelling Patient has been restarted on Lasix and is currently on Ciloxan as well we will continue to monitor labs closely Current regimen PHYSICAL EXAMINATION: GENERAL: Alert & oriented, in no acute distress SKIN: No lesions EYES: Pupils equal reactive to light, no discharge. EARS/NOSE AND THROAT: Ears normal, nose normal, oropharynx normal. NECK: Supple, no masses CHEST: Inspection within normal limits. CARDIOVASCULAR: Heart: Regular rate and rhythm RESPIRATORY: Lungs clear to auscultation and percussion, no wheezing, no rubs GASTROINTESTINAL AND LIVER: Abdomen: Soft, non tenderness, distended, no hernias, no masses, no organomegaly, ascites, no guarding, no rebound tenderness, normoactive bowel sounds. Rectal: Deferred. EXTREMITIES: BLE edema : swelling to scrotum and penis Result Diagram: 09/12/18 0652 09/12/18 0652 Results 24hrs Laboratory Tests Test 09/12/18 06:52 White Blood Count 4.2 L Red Blood Count 2.50 L Hemoglobin 8.0 L Hematocrit 22.9 L Mean Corpuscular Volume 91.6 Mean Corpuscular Hemoglobin 32.0 Mean Corpuscular Hemoglobin Concent 34.9 Red Cell Distribution Width 16.8 H Platelet Count 72 L Mean Platelet Volume 9.4 Immature Granulocytes % 1.900 H Neutrophils % 56.0 Lymphocytes % 22.0 Monocytes % 16.8 H Eosinophils % 2.8 Basophils % 0.5 Nucleated Red Blood Cells % 0.0 Immature Granulocytes # 0.080 H Neutrophils # 2.4 Lymphocytes # 0.9 Monocytes # 0.7 Eosinophils # 0.1 Basophils # 0.0 Nucleated Red Blood Cells # 0.0 Sodium Level 139 Potassium Level 3.6 Chloride Level 112 H Carbon Dioxide Level 19 L Anion Gap 8 Blood Urea Nitrogen 13 Creatinine 0.81 Est Glomerular Filtrat Rate mL/min > 60 Glucose Level 80 Calcium Level 8.4 Phosphorus Level 3.1 Magnesium Level 1.3 L Exam/Review of Systems Exam Vitals Vital Signs Date Temp Pulse Resp B/P (MAP) Pulse Ox O2 O2 Flow FiO2 Time Delivery Rate 09/12/18 98.0 81 18 102/59 98 08:00 (73) 09/11/18 Room Air 16:18 09/11/18 10 15:43 Intake and Output 09/11/18 09/11/18 09/12/18 1515:00 23:00 07:00 IntakeIntake Total 150 ml 540 ml 300 ml OutputOutput Total 500 ml 300 ml BalanceBalance -350 ml 240 ml 300 ml Results Results 24hrs Laboratory Tests Test 09/12/18 06:52 White Blood Count 4.2 L Red Blood Count 2.50 L Hemoglobin 8.0 L Hematocrit 22.9 L Mean Corpuscular Volume 91.6 Mean Corpuscular Hemoglobin 32.0 Mean Corpuscular Hemoglobin Concent 34.9 Red Cell Distribution Width 16.8 H Platelet Count 72 L Mean Platelet Volume 9.4 Immature Granulocytes % 1.900 H Neutrophils % 56.0 Lymphocytes % 22.0 Monocytes % 16.8 H Eosinophils % 2.8 Basophils % 0.5 Nucleated Red Blood Cells % 0.0 Immature Granulocytes # 0.080 H Neutrophils # 2.4 Lymphocytes # 0.9 Monocytes # 0.7 Eosinophils # 0.1 Basophils # 0.0 Nucleated Red Blood Cells # 0.0 Sodium Level 139 Potassium Level 3.6 Chloride Level 112 H Carbon Dioxide Level 19 L Anion Gap 8 Blood Urea Nitrogen 13 Creatinine 0.81 Est Glomerular Filtrat Rate mL/min > 60 Glucose Level 80 Calcium Level 8.4 Phosphorus Level 3.1 Magnesium Level 1.3 L Medications Medication Current Medications Ondansetron HCl (Zofran Inj) 4 mg Q6H PRN IV NAUSEA/VOMITING; Start 09/04/18 at 16:00 Acetaminophen (Tylenol Tab) 650 mg Q6H PRN PO .PAIN 1-3 OR TEMP Last administered on 09/11/18 21:02; Admin Dose 650 MG; Start 09/04/18 at 16:00 Docusate Sodium (Colace) 100 mg Q12 PO Last administered on 09/12/18 08:21; Admin Dose 100 MG; Start 09/04/18 at 16:00 Pantoprazole (Protonix Tab) 40 mg DAILY@06 PO Last administered on 09/12/18 05:17; Admin Dose 40 MG; Start 09/05/18 at 06:00 Lorazepam (Ativan) 1 mg Q4 PRN IV CONTROL WITHDRAWAL SYMPTOMS Last administered on 09/07/18at 15:42; Admin Dose 1 MG; Start 09/07/18 at 07:00 Lactulose (Enulose) 20 gm TID PO Last administered on 09/12/18 08:20; Admin Dose 20 GM; Start 09/07/18 at 21:00 Rifaximin (Xifaxan) 550 mg BID PO Last administered on 09/12/18 08:22; Admin Dose 550 MG; Start 09/07/18 at 13:30 Spironolactone (Aldactone) 100 mg DAILY PO Last administered on 09/12/18 08:21; Admin Dose 100 MG; Start 09/07/18 at 13:30 Thiamine HCl (Vitamin B1) 100 mg DAILY PO Last administered on 09/12/18 08:21; Admin Dose 100 MG; Start 09/10/18 at 09:00; Stop 09/17/18 at 08:59 Folic Acid (Folic Acid) 1 mg DAILY PO Last administered on 09/12/18 08:21; Ad min Dose 1 MG; Start 09/10/18 at 09:00 Ciprofloxacin (Cipro) 500 mg BID@06,18 PO Last administered on 09/12/18at 05:16; Admin Dose 500 MG; Start 09/11/18 at 18:00; Stop 09/25/18 at 17:59 Doxycycline Hyclate (Vibramycin) 100 mg BID PO Last administered on 09/12/18 08:21; Admin Dose 100 MG; Start 09/11/18 at 13:00; Stop 09/25/18 at 12:59 Furosemide (Lasix) 20 mg BID DIURETICS PO Last administered on 09/12/18at 08:22; Admin Dose 20 MG; Start 09/11/18 at 18:00 Magnesium Sulfate 3 gm/Dextrose 106 ml @ 35.333 mls/ hr ONCE ONCE IVPB ; Start 09/12/18 at 12:00; Stop 09/12/18 at 14:59 Fluconazole (Diflucan) 200 mg DAILY PO Last administered on 09/12/18at 12:29; Admin Dose 200 MG; Start 09/12/18 at 12:00; Stop 09/17/18 at 11:59 Nadolol (Corgard) 20 mg DAILY PO ; Start 09/12/18 at 12:00 VIVIENNE SANCHEZ Sep 12, 2018 13:10
--- NOTE | 2018-09-12 13:55 | CONS ---
Assessment/Plan Assessment/Plan Hospital Course (Demo Recall) ID PROGRESS NOTE CURRENT ABX: DAY # => Doxycycline + Cipro + Diflucan + Rifaximin s/p Zosyn #5 09/12/18 0652 09/12/18 0652 24H INTERVAL SUMMARY * Clinically stable, no fevers, NAD, without dyspnea, lethargic MICRO/OTHER * All Micro is negative to date. PHYSICAL EXAMINATION: GENERAL: Afebrile, VSS HEENT: AT, NC, anicteric NECK: Supple, trach midline CHEST: Equal chest rise bilaterally, without dyspnea on observation HEART: Pulse RRR ABDOMEN: Distended EXTREMITIES: Warm, dry SKIN: No rash, no diaphoresis ID ASSESSMENT 52 yo M admit with: 1. Decompensated alcoholic liver cirrhosis 2. Recurrent ascites status post paracentesis 09/08, 09/10 3. Probable SBP per cytology 4. Acute kidney injury on admission 5. Penoscrotal edema (-)MRSA Nares ABX ALLERGIES: KNDA INVASIVES: PIV CURRENT ABX: DAY #6 => Doxycycline + Cipro + Diflucan + Rifaximin s/p Zosyn #5 ID RECOMMENDATIONS/PLAN: 1. Continue current ABX --per ID notes, GI recommended . Consultation Date/Type/Reason Admit Date/Time Sep 04, 2018 at 11:46 Initial Consult Date 09/07/18 Date/Time of Note DATE: 09/12/18 TIME: 13:55 Exam/Review of Systems Exam Vitals Vital Signs Date Temp Pulse Resp B/P (MAP) Pulse Ox O2 O2 Flow FiO2 Time Delivery Rate 09/12/18 98.0 81 18 102/59 98 08:00 (73) 09/11/18 Room Air 16:18 09/11/18 10 15:43 Intake and Output 09/11/18 09/11/18 09/12/18 1515:00 23:00 07:00 IntakeIntake Total 150 ml 540 ml 300 ml OutputOutput Total 500 ml 300 ml BalanceBalance -350 ml 240 ml 300 ml Results Result Diagram: 09/12/1852 09/12/1852 Results 24hrs Laboratory Tests Test 09/12/18 06:52 White Blood Count 4.2 L Red Blood Count 2.50 L Hemoglobin 8.0 L Hematocrit 22.9 L Mean Corpuscular Volume 91.6 Mean Corpuscular Hemoglobin 32.0 Mean Corpuscular Hemoglobin Concent 34.9 Red Cell Distribution Width 16.8 H Platelet Count 72 L Mean Platelet Volume 9.4 Immature Granulocytes % 1.900 H Neutrophils % 56.0 Lymphocytes % 22.0 Monocytes % 16.8 H Eosinophils % 2.8 Basophils % 0.5 Nucleated Red Blood Cells % 0.0 Immature Granulocytes # 0.080 H Neutrophils # 2.4 Lymphocytes # 0.9 Monocytes # 0.7 Eosinophils # 0.1 Basophils # 0.0 Nucleated Red Blood Cells # 0.0 Sodium Level 139 Potassium Level 3.6 Chloride Level 112 H Carbon Dioxide Level 19 L Anion Gap 8 Blood Urea Nitrogen 13 Creatinine 0.81 Est Glomerular Filtrat Rate mL/min > 60 Glucose Level 80 Calcium Level 8.4 Phosphorus Level 3.1 Magnesium Level 1.3 L Medications Medication Current Medications Ondansetron HCl (Zofran Inj) 4 mg Q6H PRN IV NAUSEA/VOMITING; Start 09/04/18 at 16:00 Acetaminophen (Tylenol Tab) 650 mg Q6H PRN PO .PAIN 1-3 OR TEMP Last administered on 09/11/18 21:02; Admin Dose 650 MG; Start 09/04/18 at 16:00 Docusate Sodium (Colace) 100 mg Q12 PO Last administered on 09/12/18 08:21; Admin Dose 100 MG; Start 09/04/18 at 16:00 Pantoprazole (Protonix Tab) 40 mg DAILY@06 PO Last administered on 09/12/18 05:17; Admin Dose 40 MG; Start 09/05/18 at 06:00 Lorazepam (Ativan) 1 mg Q4 PRN IV CONTROL WITHDRAWAL SYMPTOMS Last administered on 09/07/18at 15:42; Admin Dose 1 MG; Start 09/07/18 at 07:00 Lactulose (Enulose) 20 gm TID PO Last administered on 09/12/18 08:20; Admin Dose 20 GM; Start 09/07/18 at 21:00 Rifaximin (Xifaxan) 550 mg BID PO Last administered on 09/12/18 08:22; Admin Dose 550 MG; Start 09/07/18 at 13:30 Spironolactone (Aldactone) 100 mg DAILY PO Last administered on 09/12/18 08:21; Admin Dose 100 MG; Start 09/07/18 at 13:30 Thiamine HCl (Vitamin B1) 100 mg DAILY PO Last administered on 09/12/18at 08:21; Admin Dose 100 MG; Start 09/10/18 at 09:00; Stop 09/17/18 at 08:59 Folic Acid (Folic Acid) 1 mg DAILY PO Last administered on 09/12/18at 08:21; Admin Dose 1 MG; Start 09/10/18 at 09:00 Ciprofloxacin (Cipro) 500 mg BID@06,18 PO Last administered on 09/12/18at 05:16; Admin Dose 500 MG; Start 09/11/18 at 18:00; Stop 09/25/18 at 17:59 Doxycycline Hyclate (Vibramycin) 100 mg BID PO Last administered on 09/12/18at 08:21; Admin Dose 100 MG; Start 09/11/18 at 13:00; Stop 09/25/18 at 12:59 Furosemide (Lasix) 20 mg BID DIURETICS PO Last administered on 09/12/18at 08:22; Admin Dose 20 MG; Start 09/11/18 at 18:00 Magnesium Sulfate 3 gm/Dextrose 106 ml @ 35.333 mls/ hr ONCE ONCE IVPB ; St art 09/12/18 at 12:00; Stop 09/12/18 at 14:59 Fluconazole (Diflucan) 200 mg DAILY PO Last administered on 09/12/18at 12:29; Admin Dose 200 MG; Start 09/12/18 at 12:00; Stop 09/17/18 at 11:59 Nadolol (Corgard) 20 mg DAILY PO ; Start 09/12/18 at 12:00 CHARLINE VINCENT NP Sep 12, 2018 13:55
[2018-09-12 14:00] VITALS: BP 112/61; PULSE 94; RESP 18
--- NOTE | 2018-09-12 15:19 | PN ---
DATE: 09/12/2018 SUBJECTIVE: The patient is stable. No events overnight. No fevers, chills, nausea, vomiting. OBJECTIVE: VITAL SIGNS: Blood pressure is 115/61, respirations 18, pulse 85, temperature 98.2. HEENT: Head is normocephalic. NECK: Supple. HEART: Regular rate. LUNGS: Show diminished breath sounds at the base. ABDOMEN: Soft. Mild tenderness to palpation. EXTREMITIES: Negative for clubbing, cyanosis. Trace edema. DERMATOLOGIC: No rashes. MUSCULOSKELETAL: No joint effusion. NEUROLOGIC: No change in exam. MEDICATIONS: Have been reviewed. LABORATORY DATA: Currently pending. ASSESSMENT AND PLAN: 1. Nonoliguric acute kidney injury with previous baseline creatinine of 0.6 mg/dL. Etiology of acut e kidney injury is secondary to hemodynamics. The patient's renal function has improved. We will co ntinue current treatment plan, supportive care, and renally dose all medications. 2. Hypokalemia. Continue to monitor and replete. 3. Anemia. Monitor hemoglobin and hematocrit levels. 4. Acidosis. Etiology is likely compensatory. Continue to monitor. 5. Mineral bone disorder. Monitor calcium and phosphorus levels. 6. Volume overload secondary to decompensated cirrhosis. Would resume diuretic therapy if renal fun ction remains stable. 7. Decompensated cirrhosis. The patient has known portal hypertension, encephalopathy, ascites. Co ntinue medical management. Resume diuretic therapy if renal function remains stable. 8. Urinary retention, status post [place] catheter placement. 9. Gastritis. Continue proton pump inhibitor. Dictated By: HELEN SINHA DO NR/NTS Conf#: [id number] DID#: [id number] CC: AJAY SAUCEDA MD;*EndCC*
[2018-09-12] MEDS: ACETAMINOPHEN 325 MG TAB PO PRN (20:27)
[2018-09-12 20:45] VITALS: BP 101/53; PULSE 99; RESP 18
[2018-09-13] VITALS (7 sets, daily range): BP systolic 87–104; BP diastolic 50–64; PULSE 83–88; RESP 18
[2018-09-13] MEDS: CIPROFLOXACIN 500 MG TAB PO SCH ×2 (05:48→17:24)
[2018-09-13] MEDS: PANTOPRAZOLE (EC) 40 MG TAB PO SCH (05:49)
[2018-09-13] MEDS: FUROSEMIDE 20 MG TAB PO SCH ×2 (05:51→17:24)
[2018-09-13] MEDS ORDERED: SOD CHLORIDE 0.9% 500 ML IV ONE (06:00)
[2018-09-13] MEDS ORDERED: MAGNESIUM SULFATE 2 GM/50 ML 50 ML IVPB ONE (08:00)
[2018-09-13] MEDS: LACTULOSE 30ML CUP PO SCH ×2 (08:33→20:21)
[2018-09-13] MEDS: DOXYCYCLINE 100 MG TAB PO SCH ×2 (08:33→20:21)
[2018-09-13] MEDS: THIAMINE 100 MG TAB PO SCH (08:34)
[2018-09-13] MEDS: FOLIC ACID 1 MG TAB PO SCH (08:34)
[2018-09-13] MEDS: SPIRONOLACTONE 50 MG TAB PO SCH (08:34)
[2018-09-13] MEDS: RIFAXIMIN 550 MG TAB PO SCH ×2 (08:34→20:21)
[2018-09-13] MEDS: FLUCONAZOLE 200 MG TAB PO SCH (08:34)
[2018-09-13] MEDS: DOCUSATE SODIUM 100 MG CAP PO SCH ×2 (08:35→20:21)
[2018-09-13] MEDS: NADOLOL 40 MG TAB PO SCH (08:35)
--- NOTE | 2018-09-13 11:07 | PN ---
Date/Time of Note Date/Time of Note DATE: 09/13/18 TIME: 11:01 Assessment/Plan VTE Prophylaxis Risk score (from Ns)>0 risk: 3 SCD applied (from Ns): No SCD contraindicated: other (scds) Pharmacological prophylaxis: other (scds) Lines/Catheters IV [facility]from [facility] Mid Line Urinary Cath still in place: No Assessment/Plan Hospital Course Assessment: Hepatic encephalopathy- improved Alcoholic liver disease with ascites- MELD 18 , (DF on admission 24.8) -Thrombocytopenia- stable -Coagulopathy -Normocytic anemia- stable EGD 09/11/18 Evidence of portal hypertension No esophageal varices Portal hypertensive gastropathy Minimal distal esophagitis Indirect hyperbilirubinemia- resolved Elevated AST- slightly better today MIREYA- resolved-Nephrology following SBP- on Zosyn Fevers- 2 SBP patient empirically on Zosyn- improved -Blood cx and urine cx without - no growth -CXR-The lungs are clear of acute infiltrates, edema, effusions, or masses. There is mild left basilar atelectasis. -paracentesis today will r/o SBP- (paracentesis + for SBP) ETOH abuse Marijuana use Hypertension Homelessness -SW consulted Mild flattening and patchy sclerotic changes left femoral head, could be sequela of prior trauma or osteonecrosis. Hypomagnesemia- replaced Plan: Continue Spironolactone/Lasix/nadolol for portal HTN- monitor lab closely Continue Lactulose (titrate to 3-4 BM in a 24 hour period) continue Xifaxan 550mg po BID Encourage PO intake ASMA- low positive- will order LKM- negative, IgG- pending D/c planning per hospitalist- will likley require SNF placement Patient seen in collaboration with Dr. Santos/Grzegorz Subjective: Course reviewed with nursing staff Patient interviewed and examined All labs, imaging and other results reviewed No over night events, patient alert and able to communicate well No c/o n/v or abd pain. PHYSICAL EXAMINATION: GENERAL: Alert & oriented, in no acute distress SKIN: No lesions EYES: Pupils equal reactive to light, no discharge. EARS/NOSE AND THROAT: Ears normal, nose normal, oropharynx normal. NECK: Supple, no masses CHEST: Inspection within normal limits. CARDIOVASCULAR: Heart: Regular rate and rhythm RESPIRATORY: Lungs clear to auscultation and percussion, no wheezing, no rubs GASTROINTESTINAL AND LIVER: Abdomen: Soft, non tenderness, distended, no hernias, no masses, no organomegaly, ascites, no guarding, no rebound tenderness, normoactive bowel sounds. Rectal: Deferred. EXTREMITIES: BLE edema : swelling to scrotum and penis Result Diagram: 09/13/18 0636 09/13/18 0636 Results 24hrs Laboratory Tests Test 09/13/18 06:36 White Blood Count 3.5 L Red Blood Count 2.77 L Hemoglobin 8.6 L Hematocrit 25.5 L Mean Corpuscular Volume 92.1 Mean Corpuscular Hemoglobin 31.0 Mean Corpuscular Hemoglobin Concent 33.7 Red Cell Distribution Width 16.9 H Platelet Count 72 L Mean Platelet Volume 8.8 Immature Granulocytes % 2.500 H Neutrophils % 50.3 Lymphocytes % 27.7 Monocytes % 15.0 H Eosinophils % 3.7 Basophils % 0.8 Nucleated Red Blood Cells % 0.0 Immature Granulocytes # 0.090 H Neutrophils # 1.8 Lymphocytes # 1.0 Monocytes # 0.5 Eosinophils # 0.1 Basophils # 0.0 Nucleated Red Blood Cells # 0.0 Sodium Level 139 Potassium Level 3.9 Chloride Level 106 Carbon Dioxide Level 22 Anion Gap 11 Blood Urea Nitrogen 11 Creatinine 0.92 Est Glomerular Filtrat Rate mL/min > 60 Glucose Level 76 Calcium Level 8.8 Phosphorus Level 3.8 Magnesium Level 1.2 L Exam/Review of Systems Exam Vitals Vital Signs Date Temp Pulse Resp B/P (MAP) Pulse Ox O2 O2 Flow FiO2 Time Delivery Rate 09/13/18 97.7 85 95/60 (72) 99 07:59 09/13/18 18 01:56 09/11/18 Room Air 16:18 09/11/18 10 15:43 Intake and Output 09/12/18 09/12/18 09/13/18 1515:00 23:00 07:00 IntakeIntake Total 280 ml 386 ml 618 ml OutputOutput Total 1125 ml 1650 ml 175 ml BalanceBalance -845 ml -1264 ml 443 ml Results Results 24hrs Laboratory Tests Test 09/13/18 06:36 White Blood Count 3.5 L Red Blood Count 2.77 L Hemoglobin 8.6 L Hematocrit 25.5 L Mean Corpuscular Volume 92.1 Mean Corpuscular Hemoglobin 31.0 Mean Corpuscular Hemoglobin Concent 33.7 Red Cell Distribution Width 16.9 H Platelet Count 72 L Mean Platelet Volume 8.8 Immature Granulocytes % 2.500 H Neutrophils % 50.3 Lymphocytes % 27.7 Monocytes % 15.0 H Eosinophils % 3.7 Basophils % 0.8 Nucleated Red Blood Cells % 0.0 Immature Granulocytes # 0.090 H Neutrophils # 1.8 Lymphocytes # 1.0 Monocytes # 0.5 Eosinophils # 0.1 Basophils # 0.0 Nucleated Red Blood Cells # 0.0 Sodium Level 139 Potassium Level 3.9 Chloride Level 106 Carbon Dioxide Level 22 Anion Gap 11 Blood Urea Nitrogen 11 Creatinine 0.92 Est Glomerular Filtrat Rate mL/min > 60 Glucose Level 76 Calcium Level 8.8 Phosphorus Level 3.8 Magnesium Level 1.2 L Medications Medication Current Medications Ondansetron HCl (Zofran Inj) 4 mg Q6H PRN IV NAUSEA/VOMITING; Start 09/04/18 at 16:00 Acetaminophen (Tylenol Tab) 650 mg Q6H PRN PO .PAIN 1-3 OR TEMP Last administered on 09/12/18 20:27; Admin Dose 650 MG; Start 09/04/18 at 16:00 Docusate Sodium (Colace) 100 mg Q12 PO Last administered on 09/12/18 08:21; Admin Dose 100 MG; Start 09/04/18 at 16:00 Pantoprazole (Protonix Tab) 40 mg DAILY@06 PO Last administered on 09/13/18at 0 5:49; Admin Dose 40 MG; Start 09/05/18 at 06:00 Lorazepam (Ativan) 1 mg Q4 PRN IV CONTROL WITHDRAWAL SYMPTOMS Last administered on 09/07/18at 15:42; Admin Dose 1 MG; Start 09/07/18 at 07:00 Lactulose (Enulose) 20 gm TID PO Last administered on 09/13/18 08:33; Admin Dose 20 GM; Start 09/07/18 at 21:00 Rifaximin (Xifaxan) 550 mg BID PO Last administered on 09/13/18 08:34; Admin Dose 550 MG; Start 09/07/18 at 13:30 Spironolactone (Aldactone) 100 mg DAILY PO Last administered on 09/13/18 08:34; Admin Dose 100 MG; Start 09/07/18 at 13:30 Thiamine HCl (Vitamin B1) 100 mg DAILY PO Last administered on 09/13/18 08:34; Admin Dose 100 MG; Start 09/10/18 at 09:00; Stop 09/17/18 at 08:59 Folic Acid (Folic Acid) 1 mg DAILY PO Last administered on 09/13/18 08:34; Admin Dose 1 MG; Start 09/10/18 at 09:00 Ciprofloxacin (Cipro) 500 mg BID@18 PO Last administered on 09/13/18at 05:48; Admin Dose 500 MG; Start 09/11/18 at 18:00; Stop 09/25/18 at 17:59 Doxycycline Hyclate (Vibramycin) 100 mg BID PO Last administered on 09/13/18at 08:33; Admin Dose 100 MG; Start 09/11/18 at 13:00; Stop 09/25/18 at 12:59 Furosemide (Lasix) 20 mg BID DIURETICS PO Last administered on 09/12/18at 08:22; Admin Dose 20 MG; Start 09/11/18 at 18:00 Fluconazole (Diflucan) 200 mg DAILY PO Last administered on 09/13/18 08:34; Admin Dose 200 MG; Start 09/12/18 at 12:00; Stop 09/17/18 at 11:59 Nadolol (Corgard) 20 mg DAILY PO Last administered on 09/13/18at 08:35; Admin Dose 20 MG; Start 09/12/18 at 12:00 VIVIENNE SANCHEZ Sep 13, 2018 11:07
--- NOTE | 2018-09-13 11:26 | PN ---
DATE: 09/13/2018 SUBJECTIVE: The patient yesterday was noted to be hypotensive and symptomatic after apparently recei ving diuretic therapy. The patient did receive a fluid bolus overnight. This morning, the patient i s stable, alert and oriented. OBJECTIVE: VITAL SIGNS: Blood pressure is 103/64, respiration is 18, pulse 84, temperature 98.0. HEENT: Head is normocephalic. NECK: Supple. HEART: Regular rate. LUNGS: Show diminished breath sounds at the base. ABDOMEN: Soft, nontender to palpation without rebound or guarding. EXTREMITIES: Negative for clubbing, cyanosis, trace edema. DERMATOLOGIC: No rashes. MUSCULOSKELETAL: No joint effusions. NEUROLOGIC: No change in exam. MEDICATIONS: Reviewed. LABORATORY DATA: Shows a white count of 3.5, hemoglobin 9.6, white count 72. Sodium 139, potassium 3.9, BUN 11, creatinine 0.92, magnesium 1.2. ASSESSMENT AND PLAN: 1. Nonoliguric acute kidney injury with previous baseline creatinine of 0.6 mg/dL. Etiology of MIREYA is secondary to hemodynamics. Renal function has stabilized. We will continue current treatment char[place] n, supportive care, renally dose meds, monitor closely on diuretic therapy. 2. Hypomagnesemia. Will replete with magnesium sulfate. 3. Anemia. Monitor hemoglobin and hematocrit levels. 4. Metabolic acidosis, resolved. Continue to monitor. 5. Mineral bone disorder. Monitor calcium and phosphorus. 6. Volume overload secondary to decompensated cirrhosis. The patient is on low dose diuretic therap y, monitor hemodynamics closely. 7. Hypertension, likely due to recent diuretic therapy. The patient is status post fluid challenge. Continue to monitor. Consider deescalation of diuretics. 8. Decompensated cirrhosis with known portal hypertension, encephalopathy, ascites. Continue curren t treatment plan. 9. Urinary retention, status post [place] catheter placement. 10. Gastritis. Continue proton pump inhibitor. Dictated By: HELEN SINHA DO NR/JERSEY Conf#: [id number] DID#: [id number] CC: AJAY SAUCEDA MD; YANE ASH GROUP CAPTAIN;*EndCC*
--- NOTE | 2018-09-13 12:34 | PN ---
Date/Time of Note Date/Time of Note DATE: 09/13/18 TIME: 12:31 Assessment/Plan VTE Prophylaxis Risk score (from [facility])>0 risk: 3 SCD applied (from [facility]): No SCD contraindicated: patient refusal Pharmacological prophylaxis: heparin Lines/Catheters IV Catheter Type (from [facility]): Mid Line Urinary Cath still in place: Yes Reason Cath still needed: urinary retention Assessment/Plan Problems: (1) Alcoholic cirrhosis of liver with ascites Status: Chronic Comment: He is holding steady with his current regimen of medications is not immediately in need of paracentesis (2) Portal hypertensive gastropathy Status: Chronic Comment: Noted. Please note that his portal hypertension is causing some fluid retention including distally which the patient is very disturbed by as it involves his genital region (3) [place] catheter in place Comment: Draining clear and without complications. (4) Debility Status: Chronic Comment: Noted. Attempting to get the patient up and around. He will need to go to an ECF long-term (5) Essential hypertension Status: Chronic Comment: Adequate control (6) Avascular necrosis of bone of left hip Status: Chronic Comment: Noted. Not a surgical candidate (7) Acute weakness Status: Acute Comment: Improved modestly (8) Homeless single person Status: Chronic Comment: As per case management and social work Result Diagram: 09/13/18 0636 09/13/18 0636 Results 24hrs Laboratory Tests Test 09/13/18 06:36 White Blood Count 3.5 L Red Blood Count 2.77 L Hemoglobin 8.6 L Hematocrit 25.5 L Mean Corpuscular Volume 92.1 Mean Corpuscular Hemoglobin 31.0 Mean Corpuscular Hemoglobin Concent 33.7 Red Cell Distribution Width 16.9 H Platelet Count 72 L Mean Platelet Volume 8.8 Immature Granulocytes % 2.500 H Neutrophils % 50.3 Lymphocytes % 27.7 Monocytes % 15.0 H Eosinophils % 3.7 Basophils % 0.8 Nucleated Red Blood Cells % 0.0 Immature Granulocytes # 0.090 H Neutrophils # 1.8 Lymphocytes # 1.0 Monocytes # 0.5 Eosinophils # 0.1 Basophils # 0.0 Nucleated Red Blood Cells # 0.0 Sodium Level 139 Potassium Level 3.9 Chloride Level 106 Carbon Dioxide Level 22 Anion Gap 11 Blood Urea Nitrogen 11 Creatinine 0.92 Est Glomerular Filtrat Rate mL/min > 60 Glucose Level 76 Calcium Level 8.8 Phosphorus Level 3.8 Magnesium Level 1.2 L Subjective 24 Hr Interval Summary Free Text/Dictation Patient reports that he is still concerned about the edema he has in his scrotal area. Otherwise he is doing relatively well Constitutional: no complaints Respiratory: no complaints Cardiovascular: no complaints Gastrointestinal: no complaints Genitourinary: other (Penile edema and swelling) Exam/Review of Systems Exam Vitals Vital Signs Date Temp Pulse Resp B/P (MAP) Pulse Ox O2 O2 Flow FiO2 Time Delivery Rate 09/13/18 97.7 85 95/60 (72) 99 07:59 09/13/18 18 01:56 09/11/18 Room Air 16:18 09/11/18 10 15:43 Intake and Output 09/12/18 09/12/18 09/13/18 1515:00 23:00 07:00 IntakeIntake Total 280 ml 386 ml 618 ml OutputOutput Total 1125 ml 1650 ml 175 ml BalanceBalance -845 ml -1264 ml 443 ml Constitutional: alert, oriented Respiratory: clear to auscultation, normal air movement Cardiovascular: regular rate and rhythm, nl pulses Gastrointestinal: soft, nl liver, spleen, non-tender Genitourinary - Male: other (Edema is modestly less) Results Results 24hrs Laboratory Tests Test 09/13/18 06:36 White Blood Count 3.5 L Red Blood Count 2.77 L Hemoglobin 8.6 L Hematocrit 25.5 L Mean Corpuscular Volume 92.1 Mean Corpuscular Hemoglobin 31.0 Mean Corpuscular Hemoglobin Concent 33.7 Red Cell Distribution Width 16.9 H Platelet Count 72 L Mean Platelet Volume 8.8 Immature Granulocytes % 2.500 H Neutrophils % 50.3 Lymphocytes % 27.7 Monocytes % 15.0 H Eosinophils % 3.7 Basophils % 0.8 Nucleated Red Blood Cells % 0.0 Immature Granulocytes # 0.090 H Neutrophils # 1.8 Lymphocytes # 1.0 Monocytes # 0.5 Eosinophils # 0.1 Basophils # 0.0 Nucleated Red Blood Cells # 0.0 Sodium Level 139 Potassium Level 3.9 Chloride Level 106 Carbon Dioxide Level 22 Anion Gap 11 Blood Urea Nitrogen 11 Creatinine 0.92 Est Glomerular Filtrat Rate mL/min > 60 Glucose Level 76 Calcium Level 8.8 Phosphorus Level 3.8 Magnesium Level 1.2 L Medications Medication Current Medications Ondansetron HCl (Zofran Inj) 4 mg Q6H PRN IV NAUSEA/VOMITING; Start 09/04/18 at 16:00 Acetaminophen (Tylenol Tab) 650 mg Q6H PRN PO .PAIN 1-3 OR TEMP Last ad ministered on 09/12/18 20:27; Admin Dose 650 MG; Start 09/04/18 at 16:00 Docusate Sodium (Colace) 100 mg Q12 PO Last administered on 09/12/18 08:21; Admin Dose 100 MG; Start 09/04/18 at 16:00 Pantoprazole (Protonix Tab) 40 mg DAILY@06 PO Last administered on 09/13/18 05:49; Admin Dose 40 MG; Start 09/05/18 at 06:00 Lorazepam (Ativan) 1 mg Q4 PRN IV CONTROL WITHDRAWAL SYMPTOMS Last administered on 09/07/18 15:42; Admin Dose 1 MG; Start 09/07/18 at 07:00 Rifaximin (Xifaxan) 550 mg BID PO Last administered on 09/13/18 08:34; Admin Dose 550 MG; Start 09/07/18 at 13:30 Spironolactone (Aldactone) 100 mg DAILY PO Last administered on 09/13/18 08:34; Admin Dose 100 MG; Start 09/07/18 at 13:30 Thiamine HCl (Vitamin B1) 100 mg DAILY PO Last administered on 09/13/18 08:34; Admin Dose 100 MG; Start 09/10/18 at 09:00; Stop 09/17/18 at 08:59 Folic Acid (Folic Acid) 1 mg DAILY PO Last administered on 09/13/18 08:34; Admin Dose 1 MG; Start 09/10/18 at 09:00 Ciprofloxacin (Cipro) 500 mg BID@,18 PO Last administered on 09/13/18 05:48; Admin Dose 500 MG; Start 09/11/18 at 18:00; Stop 09/25/18 at 17:59 Doxycycline Hyclate (Vibramycin) 100 mg BID PO Last administered on 09/13/18 08:33; Admin Dose 100 MG; Start 09/11/18 at 13:00; Stop 09/25/18 at 12:59 Furosemide (Lasix) 20 mg BID DIURETICS PO Last administered on 2/16/19at 08:22; Admin Dose 20 MG; Start 09/11/18 at 18:00 Fluconazole (Diflucan) 200 mg DAILY PO Last administered on 09/13/18at 08:34; Admin Dose 200 MG; Start 09/12/18 at 12:00; Stop 09/17/18 at 11:59 Nadolol (Corgard) 20 mg DAILY PO Last administered on 09/13/18at 08:35; Admin Dose 20 MG; Start 09/12/18 at 12:00 Lactulose (Enulose) 20 gm BID PO ; Start 09/13/18 at 21:00 Magnesium Sulfate 6 gm/Dextrose 112 ml @ 50 mls/hr ONCE ONCE IVPB ; Start 09/13/18 at 12:30; Stop 09/13/18 at 14:44; Status UNV Magnesium Oxide (Mag-Ox 400) 400 mg BID PO ; Start 09/13/18 at 21:00; Status UNV NAY BRYANT MD Sep 13, 2018 12:34
[2018-09-13] MEDS ORDERED: MAGNESIUM SULFATE 6 GM in DEXTROSE 5% 150 ML IVPB ONE (13:30)
[2018-09-13] MEDS ORDERED: TESTOSTERONE CYPIONATE 200 MG/ML INJ IM ONE (14:30)
--- NOTE | 2018-09-13 17:02 | CONS ---
Assessment/Plan Assessment/Plan Hospital Course (Demo Recall) ID PROGRESS NOTE CURRENT ABX: DAY #7 => Doxycycline + Cipro + Diflucan + Rifaximin s/p Zosyn #5 24H INTERVAL SUMMARY * Awake, alert, no fevers, NAD, without dyspnea * c/o persistent scrotal edema -- due to hepatic failure -- scrotum is elevated MICRO/OTHER * All Micro is negative to date. PHYSICAL EXAMINATION: GENERAL: Afebrile, VSS HEENT: AT, NC, anicteric NECK: Supple, trach midline CHEST: Equal chest rise bilaterally, without dyspnea on observation HEART: Pulse RRR ABDOMEN: Distended s/penoscrotal edema EXTREMITIES: Warm, dry SKIN: No rash, no diaphoresis ID ASSESSMENT 52 yo M admit with: 1. Decompensated alcoholic liver cirrhosis 2. Recurrent ascites status post paracentesis 09/08, 09/10 3. Probable SBP per cytology 4. Acute kidney injury on admission 5. Penoscrotal edema (-)MRSA Nares ABX ALLERGIES: KNDA INVASIVES: PIV CURRENT ABX: DAY #7 => Doxycycline + Cipro + Diflucan + Rifaximin s/p Zosyn #5 ID RECOMMENDATIONS/PLAN: 1. Continue current ABX -- await clinical improvement . Consultation Date/Type/Reason Admit Date/Time Sep 04, 2018 at 11:46 Initial Consult Date 09/07/18 Date/Time of Note DATE: 09/13/18 TIME: 16:59 Exam/Review of Systems Exam Vitals Vital Signs Date Temp Pulse Resp B/P (MAP) Pulse Ox O2 O2 Flow FiO2 Time Delivery Rate 09/13/18 98.2 83 104/57 99 14:34 (73) 09/13/18 18 01:56 09/11/18 Room Air 16:18 09/11/18 10 15:43 Intake and Output 09/12/18 09/12/18 09/13/18 1515:00 23:00 07:00 IntakeIntake Total 280 ml 386 ml 618 ml OutputOutput Total 1125 ml 1650 ml 175 ml BalanceBalance -845 ml -1264 ml 443 ml Results Result Diagram: 09/13/18 0636 09/13/18 0636 Results 24hrs Laboratory Tests Test 09/13/18 06:36 White Blood Count 3.5 L Red Blood Count 2.77 L Hemoglobin 8.6 L Hematocrit 25.5 L Mean Corpuscular Volume 92.1 Mean Corpuscular Hemoglobin 31.0 Mean Corpuscular Hemoglobin Concent 33.7 Red Cell Distribution Width 16.9 H Platelet Count 72 L Mean Platelet Volume 8.8 Immature Granulocytes % 2.500 H Neutrophils % 50.3 Lymphocytes % 27.7 Monocytes % 15.0 H Eosinophils % 3.7 Basophils % 0.8 Nucleated Red Blood Cells % 0.0 Immature Granulocytes # 0.090 H Neutrophils # 1.8 Lymphocytes # 1.0 Monocytes # 0.5 Eosinophils # 0.1 Basophils # 0.0 Nucleated Red Blood Cells # 0.0 Sodium Level 139 Potassium Level 3.9 Chloride Level 106 Carbon Dioxide Level 22 Anion Gap 11 Blood Urea Nitrogen 11 Creatinine 0.92 Est Glomerular Filtrat Rate mL/min > 60 Glucose Level 76 Calcium Level 8.8 Phosphorus Level 3.8 Magnesium Level 1.2 L Medications Medication Current Medications Ondansetron HCl (Zofran Inj) 4 mg Q6H PRN IV NAUSEA/VOMITING; Start 09/04/18 at 16:00 Acetaminophen (Tylenol Tab) 650 mg Q6H PRN PO .PAIN 1-3 OR TEMP Last administered on 09/12/18at 20:27; Admin Dose 650 MG; Start 09/04/18 at 16:00 Docusate Sodium (Colace) 100 mg Q12 PO Last administered on 09/12/18at 08:21; Admin Dose 100 MG; Start 09/04/18 at 16:00 Pantoprazole (Protonix Tab) 40 mg DAILY@06 PO Last administered on 09/13/18at 05:49; Admin Dose 40 MG; Start 09/05/18 at 06:00 Lorazepam (Ativan) 1 mg Q4 PRN IV CONTROL WITHDRAWAL SYMPTOMS Last administered on 09/07/18at 15:42; Admin Dose 1 MG; Start 09/07/18 at 07:00 Rifaximin (Xifaxan) 550 mg BID PO Last administered on 09/13/18at 08:34; Admin Dose 550 MG; Start 09/07/18 at 13:30 Spironolactone (Aldactone) 100 mg DAILY PO Last administered on 09/13/18at 08:34; Admin Dose 100 MG; Start 09/07/18 at 13:30 Thiamine HCl (Vitamin B1) 100 mg DAILY PO Last administered on 09/13/18 08:34; Admin Dose 100 MG; Start 09/10/18 at 09:00; Stop 09/17/18 at 08:59 Folic Acid (Folic Acid) 1 mg DAILY PO Last administered on 09/13/18at 08:34; Admin Dose 1 MG; Start 09/10/18 at 09:00 Ciprofloxacin (Cipro) 500 mg BID@,18 PO Last administered on 09/13/18at 05:48; Admin Dose 500 MG; Start 09/11/18 at 18:00; Stop 09/25/18 at 17:59 Doxycycline Hyclate (Vibramycin) 100 mg BID PO Last administered on 09/13/18at 08:33; Admin Dose 100 MG; Start 09/11/18 at 13:00; Stop 09/25/18 at 12:59 Furosemide (Lasix) 20 mg BID DIURETICS PO Last administered on 09/12/18at 08:22; Admin Dose 20 MG; Start 09/11/18 at 18:00 Fluconazole (Diflucan) 200 mg DAILY PO Last administered on 09/13/18at 08:34; Admin Dose 200 MG; Start 09/12/18 at 12:00; Stop 09/17/18 at 11:59 Nadolol (Corgard) 20 mg DAILY PO Last administered on 09/13/18at 08:35; Admin Dose 20 MG; Start 09/12/18 at 12:00 Lactulose (Enulose) 20 gm BID PO ; Start 09/13/18 at 21:00 Magnesium Oxide (Mag-Ox 400) 400 mg BID PO ; Start 09/13/18 at 21:00 CHARLINE VINCENT NP Sep 13, 2018 17:02
[2018-09-13] MEDS: MAGNESIUM OXIDE 400 MG TAB PO SCH (20:21)
[2018-09-14 02:35] VITALS: BP 98/56; PULSE 78; RESP 18
[2018-09-14] MEDS: PANTOPRAZOLE (EC) 40 MG TAB PO SCH (06:27)
[2018-09-14] MEDS: CIPROFLOXACIN 500 MG TAB PO SCH ×2 (06:27→18:11)
[2018-09-14] MEDS: FUROSEMIDE 20 MG TAB PO SCH ×2 (06:28→18:00)
[2018-09-14 08:00] VITALS: BP 89/49; PULSE 83; RESP 18
[2018-09-14] MEDS ORDERED: MAGNESIUM SULFATE 2 GM/50 ML 50 ML IVPB ONE (08:30)
[2018-09-14] MEDS: LACTULOSE 30ML CUP PO SCH ×2 (08:36→20:25)
[2018-09-14] MEDS: DOXYCYCLINE 100 MG TAB PO SCH ×2 (08:39→20:24)
[2018-09-14] MEDS: THIAMINE 100 MG TAB PO SCH (08:39)
[2018-09-14] MEDS: FLUCONAZOLE 200 MG TAB PO SCH (08:39)
[2018-09-14] MEDS: FOLIC ACID 1 MG TAB PO SCH (08:39)
[2018-09-14] MEDS: MAGNESIUM OXIDE 400 MG TAB PO SCH ×2 (08:39→20:24)
[2018-09-14] MEDS: DOCUSATE SODIUM 100 MG CAP PO SCH ×2 (08:39→20:25)
[2018-09-14] MEDS: SPIRONOLACTONE 50 MG TAB PO SCH (08:40)
[2018-09-14] MEDS: RIFAXIMIN 550 MG TAB PO SCH ×2 (08:40→20:25)
[2018-09-14] MEDS: NADOLOL 40 MG TAB PO SCH (08:40)
--- NOTE | 2018-09-14 09:09 | PN ---
DATE: 09/14/2018 SUBJECTIVE: The patient is stable, no events overnight. OBJECTIVE: VITAL SIGNS: Blood pressure is 98/56, respirations 18, pulse 78, temperature 97.9. HEENT: Head is normocephalic. NECK: Supple. HEART: Regular rate. LUNGS: Show diminished breath sounds at the base. ABDOMEN: Soft, nontender to palpation. No rebound or guarding. EXTREMITIES: Negative for clubbing, cyanosis, no edema. DERMATOLOGIC: No rashes. MUSCULOSKELETAL: No joint effusion. NEUROLOGIC: No change in exam. MEDICATIONS: Reviewed. LABORATORY DATA: Shows white count 3.6, hemoglobin 8.2, platelet count 79. The patient has sodium 1 38, potassium 3.7, chloride 111, BUN 10, creatinine 0.83, magnesium 1.6. ASSESSMENT AND PLAN: 1. Nonoliguric acute kidney injury with previously normal baseline creatinine of 0.6 mg/dL. Etiolog y of acute kidney injury is secondary to hemodynamics. Renal function is stabilized. Continue to mo nitor. 2. Hypomagnesemia. We will replete with magnesium sulfate. 3. Anemia. Continue to monitor hemoglobin and hematocrit levels. 4. Mineral bone disorder, monitor calcium and phosphorus levels. 5. Volume overload secondary to cirrhosis. The patient is on low dose diuretic therapy, monitor morteza sely. 6. Hypotension, likely from diuretic therapy. The patient is status post fluid challenge. Continue to monitor. 7. Decompensated cirrhosis with portal hypertension, encephalopathy, ascites. Continue current martha tment plan. 8. Urinary retention, status post [place] catheter placement. Dictated By: HELEN SINHA DO NR/NTS Conf#: [id number] DID#: [id number] CC: AJAY SAUCEDA MD; YANE ASH PAINTER [employer];*EndCC*
--- NOTE | 2018-09-14 12:39 | PN ---
Date/Time of Note Date/Time of Note DATE: 09/14/18 TIME: 12:33 Assessment/Plan VTE Prophylaxis Risk score (from Nsg)>0 risk: 1 SCD applied (from Nsg): No SCD contraindicated: other (scds) Pharmacological prophylaxis: other (scds) Lines/Catheters [facility] Saline Lock Urinary Cath still in place: Yes (monitor output) Reason Cath still needed: other (indicate) (monitor output) Assessment/Plan Hospital Course Assessment: Hepatic encephalopathy- improved Alcoholic liver disease with ascites- MELD 18 , (DF on admission 24.8) -Thrombocytopenia- stable -Coagulopathy -Normocytic anemia- stable EGD 09/11/18 Evidence of portal hypertension No esophageal varices Portal hypertensive gastropathy Minimal distal esophagitis Indirect hyperbilirubinemia- resolved Elevated AST- slightly better today MIREYA- resolved-Nephrology following SBP- on Zosyn Fevers- 08/29 SBP patient empirically on Zosyn- improved -Blood cx and urine cx without - no growth -CXR-The lungs are clear of acute infiltrates, edema, effusions, or masses. There is mild left basilar atelectasis. -paracentesis today will r/o SBP- (paracentesis + for SBP) ETOH abuse Marijuana use Hypertension Homelessness -SW consulted Mild flattening and patchy sclerotic changes left femoral head, could be sequela of prior trauma or osteonecrosis. Hypomagnesemia- replaced Plan: Continue current plan of care Strict I&O IgG- pending D/c planning per hospitalist- will likley require SNF placement Patient seen in collaboration with Dr. Santos/Grzegorz Subjective: Course reviewed with nursing staff Patient interviewed and examined All labs, imaging and other results reviewed Pt awake alert and joking around, in good spirits No c/o abd pain , nausea or vomiting, abd distention noted, pt on diuretics claude well with kidney function His main complaint to swelling to his penis/scrotum. Discussed it will take time to go down, but he is currently on the right medication. PHYSICAL EXAMINATION: GENERAL: Alert & oriented, in no acute distress SKIN: No lesions EYES: Pupils equal reactive to light, no discharge. EARS/NOSE AND THROAT: Ears normal, nose normal, oropharynx normal. NECK: Supple, no masses CHEST: Inspection within normal limits. CARDIOVASCULAR: Heart: Regular rate and rhythm RESPIRATORY: Lungs clear to auscultation and percussion, no wheezing, no rubs GASTROINTESTINAL AND LIVER: Abdomen: Soft, non tenderness, distended, no hernias, no masses, no organomegaly, ascites, no guarding, no rebound tenderness, normoactive bowel sounds. Rectal: Deferred. EXTREMITIES: BLE edema : swelling to scrotum and penis Result Diagram: 09/14/18 0553 09/14/18 0553 Results 24hrs Laboratory Tests Test 09/14/18 05:53 09/14/18 07:43 White Blood Count 3.6 L Red Blood Count 2.61 L Hemoglobin 8.2 L Hematocrit 24.2 L Mean Corpuscular Volume 92.7 Mean Corpuscular Hemoglobin 31.4 Mean Corpuscular Hemoglobin Concent 33.9 Red Cell Distribution Width 17.0 H Platelet Count 79 L Mean Platelet Volume 8.6 Immature Granulocytes % 1.400 H Neutrophils % 50.2 Lymphocytes % 25.6 Monocytes % 18.9 H Eosinophils % 3.3 Basophils % 0.6 Nucleated Red Blood Cells % 0.0 Immature Granulocytes # 0.050 H Neutrophils # 1.8 Lymphocytes # 0.9 Monocytes # 0.7 Eosinophils # 0.1 Basophils # 0.0 Nucleated Red Blood Cells # 0.0 Sodium Level 138 Potassium Level 3.7 Chloride Level 111 H Carbon Dioxide Level 23 Anion Gap 4 L Blood Urea Nitrogen 10 Creatinine 0.83 Est Glomerular Filtrat Rate mL/min > 60 Glucose Level 83 Calcium Level 8.2 L Magnesium Level 1.6 L Lab Scanned Report BLOOD TRANSFUSION Exam/Review of Systems Exam Vitals Vital Signs Date Temp Pulse Resp B/P (MAP) Pulse Ox O2 O2 Flow FiO2 Time Delivery Rate 09/14/18 98.2 83 18 89/49 (62) 99 08:00 09/11/18 Room Air 16:18 09/11/18 10 15:43 Intake and Output 09/13/18 09/13/18 09/14/18 1515:00 23:00 07:00 IntakeIntake Total 732 ml 1400 ml 1000 ml OutputOutput Total 600 ml 1750 ml BalanceBalance 732 ml 800 ml -750 ml Results Results 24hrs Laboratory Tests Test 09/14/18 05:53 09/14/18 07:43 White Blood Count 3.6 L Red Blood Count 2.61 L Hemoglobin 8.2 L Hematocrit 24.2 L Mean Corpuscular Volume 92.7 Mean Corpuscular Hemoglobin 31.4 Mean Corpuscular Hemoglobin Concent 33.9 Red Cell Distribution Width 17.0 H Platelet Count 79 L Mean Platelet Volume 8.6 Immature Granulocytes % 1.400 H Neutrophils % 50.2 Lymphocytes % 25.6 Monocytes % 18.9 H Eosinophils % 3.3 Basophils % 0.6 Nucleated Red Blood Cells % 0.0 Immature Granulocytes # 0.050 H Neutrophils # 1.8 Lymphocytes # 0.9 Monocytes # 0.7 Eosinophils # 0.1 Basophils # 0.0 Nucleated Red Blood Cells # 0.0 Sodium Level 138 Potassium Level 3.7 Chloride Level 111 H Carbon Dioxide Level 23 Anion Gap 4 L Blood Urea Nitrogen 10 Creatinine 0.83 Est Glomerular Filtrat Rate mL/min > 60 Glucose Level 83 Calcium Level 8.2 L Magnesium Level 1.6 L Lab Scanned Report BLOOD TRANSFUSION Medications Medication Current Medications Ondansetron HCl (Zofran Inj) 4 mg Q6H PRN IV NAUSEA/VOMITING; Start 09/04/18 at 16:00 Acetaminophen (Tylenol Tab) 650 mg Q6H PRN PO .PAIN 1-3 OR TEMP Last administered on 09/12/18 20:27; Admin Dose 650 MG; Start 09/04/18 at 16:00 Docusate Sodium (Colace) 100 mg Q12 PO Last administered on 09/14/18 08:39; Admin Dose 100 MG; Start 09/04/18 at 16:00 Pantoprazole (Protonix Tab) 40 mg DAILY@06 PO Last administered on 09/14/18 06:27; Admin Dose 40 MG; Start 09/05/18 at 06:00 Lorazepam (Ativan) 1 mg Q4 PRN IV CONTROL WITHDRAWAL SYMPTOMS Last administered on 09/07/18 15:42; Admin Dose 1 MG; Start 09/07/18 at 07:00 Rifaximin (Xifaxan) 550 mg BID PO Last administered on 09/14/18 08:40; Admin Dose 550 MG; Start 09/07/18 at 13:30 Spironolactone (Aldactone) 100 mg DAILY PO Last administered on 09/13/18 08:34; Admin Dose 100 MG; Start 09/07/18 at 13:30 Thiamine HCl (Vitamin B1) 100 mg DAILY PO Last administered on 09/14/18 08:39; Admin Dose 100 MG; Start 09/10/18 at 09:00; Stop 09/17/18 at 08:59 Folic Acid (Folic Acid) 1 mg DAILY PO Last administered on 09/14/18 08:39; Admin Dose 1 MG; Start 09/10/18 at 09:00 Ciprofloxacin (Cipro) 500 mg BID@18 PO Last administered on 09/14/18 06:27; Admin Dose 500 MG; Start 09/11/18 at 18:00; Stop 09/25/18 at 17:59 Doxycycline Hyclate (Vibramycin) 100 mg BID PO Last administered on 09/14/18 08:39; Admin Dose 100 MG; Start 09/11/18 at 13:00; Stop 09/25/18 at 12:59 Furosemide (Lasix) 20 mg BID DIURETICS PO Last administered on 09/14/18 06: 28; Admin Dose 20 MG; Start 09/11/18 at 18:00 Fluconazole (Diflucan) 200 mg DAILY PO Last administered on 09/14/18 08:39; Admin Dose 200 MG; Start 09/12/18 at 12:00; Stop 09/17/18 at 11:59 Nadolol (Corgard) 20 mg DAILY PO Last administered on 09/13/18 08:35; Admin Dose 20 MG; Start 09/12/18 at 12:00 Lactulose (Enulose) 20 gm BID PO Last administered on 09/14/18 08:36; Admin Dose 20 GM; Start 09/13/18 at 21:00 Magnesium Oxide (Mag-Ox 400) 400 mg BID PO Last administered on 09/14/18 08:39; Admin Dose 400 MG; Start 09/13/18 at 21:00 VIVIENNE SANCHEZ Sep 14, 2018 12:39
--- NOTE | 2018-09-14 13:29 | PN ---
Date/Time of Note Date/Time of Note DATE: 09/14/18 TIME: 13:27 Assessment/Plan VTE Prophylaxis Risk score (from Nsg)>0 risk: 1 SCD applied (from Nsg): Yes Pharmacological prophylaxis: heparin Lines/Catheters IV Catheter Type (from Nrsg): Saline Lock Urinary Cath still in place: Yes (monitor output) Reason Cath still needed: urinary retention Assessment/Plan Hospital Course 52 yo male with alcoholic cirrhosis, here with ascites and debilitation SBP: - Continue antibiotics per ID consult Cirrhosis: - Continue diuretics and beta hayder AVN of hip: - Supportive care Debility: - PT/OT Pending SNF placement Result Diagram: 09/14/18 0553 09/14/18 0553 Results 24hrs Laboratory Tests Test 09/14/18 05:53 09/14/18 07:43 White Blood Count 3.6 L Red Blood Count 2.61 L Hemoglobin 8.2 L Hematocrit 24.2 L Mean Corpuscular Volume 92.7 Mean Corpuscular Hemoglobin 31.4 Mean Corpuscular Hemoglobin Concent 33.9 Red Cell Distribution Width 17.0 H Platelet Count 79 L Mean Platelet Volume 8.6 Immature Granulocytes % 1.400 H Neutrophils % 50.2 Lymphocytes % 25.6 Monocytes % 18.9 H Eosinophils % 3.3 Basophils % 0.6 Nucleated Red Blood Cells % 0.0 Immature Granulocytes # 0.050 H Neutrophils # 1.8 Lymphocytes # 0.9 Monocytes # 0.7 Eosinophils # 0.1 Basophils # 0.0 Nucleated Red Blood Cells # 0.0 Sodium Level 138 Potassium Level 3.7 Chloride Level 111 H Carbon Dioxide Level 23 Anion Gap 4 L Blood Urea Nitrogen 10 Creatinine 0.83 Est Glomerular Filtrat Rate mL/min > 60 Glucose Level 83 Calcium Level 8.2 L Magnesium Level 1.6 L Lab Scanned Report BLOOD TRANSFUSION Subjective 24 Hr Interval Summary Free Text/Dictation Complains of scrotal edema No pain Exam/Review of Systems Exam Vitals Vital Signs Date Temp Pulse Resp B/P (MAP) Pulse Ox O2 O2 Flow FiO2 Time Delivery Rate 09/14/18 98.2 83 18 89/49 (62) 99 08:00 09/11/18 Room Air 16:18 09/11/18 10 15:43 Intake and Output 09/13/18 09/13/18 09/14/18 1515:00 23:00 07:00 IntakeIntake Total 732 ml 1400 ml 1000 ml OutputOutput Total 600 ml 1750 ml BalanceBalance 732 ml 800 ml -750 ml Constitutional: alert, oriented, well developed Psych: no complaints, nl mood/affect Head: normocephalic, atraumatic Eyes: nl conjunctiva, EOMI, nl lids, nl sclera, PERRL ENMT: nl external ears & nose, nl lips & teeth, nl nasal mucosa & septum Neck: supple, non-tender Respiratory: clear to auscultation, normal air movement Cardiovascular: regular rate and rhythm, nl pulses Gastrointestinal: soft, nl liver, spleen, non-tender Musculoskeletal: nl extremities to inspection, nl gait and stance Extremities: normal pulses 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, nl mental status, nl speech, nl strength Skin: nl turgor; No rash or lesions Lymph: nl lymph nodes Results Results 24hrs Laboratory Tests Test 09/14/18 05:53 09/14/18 07:43 White Blood Count 3.6 L Red Blood Count 2.61 L Hemoglobin 8.2 L Hematocrit 24.2 L Mean Corpuscular Volume 92.7 Mean Corpuscular Hemoglobin 31.4 Mean Corpuscular Hemoglobin Concent 33.9 Red Cell Distribution Width 17.0 H Platelet Count 79 L Mean Platelet Volume 8.6 Immature Granulocytes % 1.400 H Neutrophils % 50.2 Lymphocytes % 25.6 Monocytes % 18.9 H Eosinophils % 3.3 Basophils % 0.6 Nucleated Red Blood Cells % 0.0 Immature Granulocytes # 0.050 H Neutrophils # 1.8 Lymphocytes # 0.9 Monocytes # 0.7 Eosinophils # 0.1 Basophils # 0.0 Nucleated Red Blood Cells # 0.0 Sodium Level 138 Potassium Level 3.7 Chloride Level 111 H Carbon Dioxide Level 23 Anion Gap 4 L Blood Urea Nitrogen 10 Creatinine 0.83 Est Glomerular Filtrat Rate mL/min > 60 Glucose Level 83 Calcium Level 8.2 L Magnesium Level 1.6 L Lab Scanned Report BLOOD TRANSFUSION Medications Medication Current Medications Ondansetron HCl (Zofran Inj) 4 mg Q6H PRN IV NAUSEA/VOMITING; Start 09/04/18 at 16:00 Acetaminophen (Tylenol Tab) 650 mg Q6H PRN PO .PAIN 1-3 OR TEMP Last administered on 09/12/18at 20:27; Admin Dose 650 MG; Start 09/04/18 at 16:00 Docusate Sodium (Colace) 100 mg Q12 PO Last administered on 09/14/18 08:39; Admin Dose 100 MG; Start 09/04/18 at 16:00 Pantoprazole (Protonix Tab) 40 mg DAILY@06 PO Last administered on 09/14/18 06:27; Admin Dose 40 MG; Start 09/05/18 at 06:00 Lorazepam (Ativan) 1 mg Q4 PRN IV CONTROL WITHDRAWAL SYMPTOMS Last administered on 09/07/18 15:42; Admin Dose 1 MG; Start 09/07/18 at 07:00 Rifaximin (Xifaxan) 550 mg BID PO Last administered on 09/14/18 08:40; Admin Dose 550 MG; Start 09/07/18 at 13:30 Spironolactone (Aldactone) 100 mg DAILY PO Last administered on 09/13/18 08:34; Admin Dose 100 MG; Start 09/07/18 at 13:30 Thiamine HCl (Vitamin B1) 100 mg DAILY PO Last administered on 09/14/18 08:39; Admin Dose 100 MG; Start 09/10/18 at 09:00; Stop 09/17/18 at 08:59 Folic Acid (Folic Acid) 1 mg DAILY PO Last administered on 09/14/18 08:39; Admin Dose 1 MG; Start 09/10/18 at 09:00 Ciprofloxacin (Cipro) 500 mg BID@,18 PO Last administered on 09/14/18 06:27; Admin Dose 500 MG; Start 09/11/18 at 18:00; Stop 09/25/18 at 17:59 Doxycycline Hyclate (Vibramycin) 100 mg BID PO Last administered on 09/14/18 08:39; Admin Dose 100 MG; Start 09/11/18 at 13:00; Stop 09/25/18 at 12:59 Furosemide (Lasix) 20 mg BID DIURETICS PO Last administered on 09/14/18 06:28; Admin Dose 20 MG; Start 09/11/18 at 18:00 Fluconazole (Diflucan) 200 mg DAILY PO Last administered on 09/14/18 08:39; Admin Dose 200 MG; Start 09/12/18 at 12:00; Stop 09/17/18 at 11:59 Nadolol (Corgard) 20 mg DAILY PO Last administered on 09/13/18 08:35; Admin Dose 20 MG; Start 09/12/18 at 12:00 Lactulose (Enulose) 20 gm BID PO Last administered on 09/14/18 08:36; Admin Dose 20 GM; Start 09/13/18 at 21:00 Magnesium Oxide (Mag-Ox 400) 400 mg BID PO Last administered on 09/14/18 08:39; Admin Dose 400 MG; Start 09/13/18 at 21:00 ERNESTO HERNANDEZ MD Sep 14, 2018 13:29
[2018-09-14 14:00] VITALS: BP 103/59; PULSE 86; RESP 18
[2018-09-14 19:30] VITALS: BP 87/51; PULSE 88; RESP 18
[2018-09-14 19:40] VITALS: BP 95/52; PULSE 89
[2018-09-14] MEDS: ACETAMINOPHEN 325 MG TAB PO PRN (20:29)
[2018-09-15 01:50] VITALS: RESP 16
[2018-09-15 02:11] VITALS: BP 84/46; RESP 18
[2018-09-15] MEDS ORDERED: ALBUMIN HUMAN 25% 100 ML IV ONE (02:30)
[2018-09-15 05:42] VITALS: BP 89/57; RESP 16
[2018-09-15] MEDS: CIPROFLOXACIN 500 MG TAB PO SCH ×2 (05:45→18:04)
[2018-09-15] MEDS: PANTOPRAZOLE (EC) 40 MG TAB PO SCH (05:46)
[2018-09-15] MEDS: FUROSEMIDE 20 MG TAB PO SCH ×2 (05:46→18:00)
[2018-09-15 06:15] VITALS: BP 90/56; PULSE 82; RESP 18
[2018-09-15] MEDS: LACTULOSE 30ML CUP PO SCH ×2 (08:29→20:46)
[2018-09-15] MEDS: THIAMINE 100 MG TAB PO SCH (08:29)
[2018-09-15] MEDS: FOLIC ACID 1 MG TAB PO SCH (08:29)
[2018-09-15] MEDS: FLUCONAZOLE 200 MG TAB PO SCH (08:29)
[2018-09-15] MEDS: DOXYCYCLINE 100 MG TAB PO SCH ×2 (08:30→20:46)
[2018-09-15] MEDS: RIFAXIMIN 550 MG TAB PO SCH ×2 (08:30→20:46)
[2018-09-15] MEDS: DOCUSATE SODIUM 100 MG CAP PO SCH ×2 (08:30→20:46)
[2018-09-15] MEDS: MAGNESIUM OXIDE 400 MG TAB PO SCH ×2 (08:30→20:46)
[2018-09-15] MEDS: NADOLOL 40 MG TAB PO SCH (08:32)
[2018-09-15] MEDS: SPIRONOLACTONE 50 MG TAB PO SCH (08:32)
--- NOTE | 2018-09-15 08:38 | PN ---
DATE: 09/15/2018 SUBJECTIVE: The patient is stable, no events overnight. OBJECTIVE: VITAL SIGNS: Blood pressure is 90/56, respirations 18, pulse 82, temperature 98.5. HEENT: Head is normocephalic. NECK: Supple. HEART: Regular rate. LUNGS: Show diminished breath sounds at the base. ABDOMEN: Soft, nontender to palpation without rebound or guarding. EXTREMITIES: Negative for clubbing, cyanosis, no edema. DERMATOLOGIC: No rashes. MUSCULOSKELETAL: No joint effusion. NEUROLOGIC: No change in exam. MEDICATIONS: Reviewed. LABORATORY DATA: Has been reviewed for 09/14/18. Laboratory data for 05/15/2019 is pending. ASSESSMENT AND PLAN: 1. Nonoliguric acute kidney injury with previously known normal baseline creatinine. Etiology is se condary to hemodynamics. Renal function is stabilized. Continue to monitor. 2. Hypomagnesemia. Continue to monitor and replete as needed. 3. Anemia. Continue to monitor hemoglobin and hematocrit levels. 4. Mineral bone disorder, monitor calcium and phosphorus levels. 5. Volume overload secondary to cirrhosis. The patient is on low-dose diuretic therapy. Continue t o monitor. 6. Hypertension, improved. Continue to monitor. 7. Decompensated cirrhosis, portal hypertension, encephalopathy, ascites. Continue current treatmen t plan. 8. Urinary retention, status post [place] catheter placement. 9. We will follow the patient as needed. Dictated By: HELEN SINHA DO NR/NTS Conf#: [id number] DID#: [id number] CC: AJAY SAUCEDA MD; YANE ASH NP; ERNESTO HERNANDEZ MD;*End*
--- NOTE | 2018-09-15 10:29 | PDOCDIS ---
Discharge Instructions CONDITION [id number] Patient Condition: [id number] Stable HOME CARE INSTRUCTIONS: [id number] Diet Instructions: [id number] gist With primary care physician VIRAJ LUU NP Sep 15, 2018 10:29
--- NOTE | 2018-09-15 10:35 | CONS ---
Assessment/Plan Assessment/Plan Hospital Course (Demo Recall) ID PROGRESS NOTE CURRENT ABX: DAY #8 => Doxycycline + Cipro + Diflucan + Rifaximin s/p Zosyn #5 24H INTERVAL SUMMARY * DC PLANNING === Awake, alert, no fevers, NAD, without dyspnea * c/o persistent scrotal edema -- due to hepatic failure -- scrotum is elevated MICRO/OTHER * All Micro is negative to date. PHYSICAL EXAMINATION: GENERAL: Afebrile, VSS HEENT: AT, NC, anicteric NECK: Supple, trach midline CHEST: Equal chest rise bilaterally, without dyspnea on observation HEART: Pulse RRR ABDOMEN: Distended s/penoscrotal edema EXTREMITIES: Warm, dry SKIN: No rash, no diaphoresis ID ASSESSMENT 52 yo M admit with: 1. Decompensated alcoholic liver cirrhosis 2. Recurrent ascites status post paracentesis 09/08, 09/10 3. Probable SBP per cytology 4. Acute kidney injury on admission 5. Penoscrotal edema (-)MRSA Nares ABX ALLERGIES: KNDA INVASIVES: PIV CURRENT ABX: DAY #7 => Doxycycline + Cipro + Diflucan + Rifaximin s/p Zosyn #5 ID RECOMMENDATIONS/PLAN: 1. May DC home on Levaquin 500mg po daily + Flagyl 150mg po TID x 5 days . Consultation Date/Type/Reason Admit Date/Time Sep 04, 2018 at 11:46 Initial Consult Date 09/07/18 Date/Time of Note DATE: 09/15/18 TIME: 10:33 Exam/Review of Systems Exam Vitals Vital Signs Date Temp Pulse Resp B/P (MAP) Pulse Ox O2 O2 Flow FiO2 Time Delivery Rate 09/15/18 82 18 90/56 (67) 06:15 09/15/18 9 Room Air 05:42 09/15/18 98.5 01:50 09/11/18 10 15:43 Intake and Output 09/14/18 09/14/18 09/15/18 1515:00 23:00 07:00 IntakeIntake Total 1100 ml 680 ml 1020 ml OutputOutput Total 750 ml 700 ml 850 ml BalanceBalance 350 ml -20 ml 170 ml Results Result Diagram: 09/14/18 0553 09/14/18 0553 Medications Medication Current Medications Ondansetron HCl (Zofran Inj) 4 mg Q6H PRN IV NAUSEA/VOMITING; Start 09/04/18 at 16:00 Acetaminophen (Tylenol Tab) 650 mg Q6H PRN PO .PAIN 1-3 OR TEMP Last administered on 09/14/18 20:29; Admin Dose 650 MG; Start 09/04/18 at 16:00 Docusate Sodium (Colace) 100 mg Q12 PO Last administered on 09/15/18 08:30; Admin Dose 100 MG; Start 09/04/18 at 16:00 Pantoprazole (Protonix Tab) 40 mg DAILY@06 PO Last administered on 09/15/18 05:46; Admin Dose 40 MG; Start 09/05/18 at 06:00 Lorazepam (Ativan) 1 mg Q4 PRN IV CONTROL WITHDRAWAL SYMPTOMS Last administered on 09/07/18 15:42; Admin Dose 1 MG; Start 09/07/18 at 07:00 Rifaximin (Xifaxan) 550 mg BID PO Last administered on 09/15/18 08:30; Admin Dose 550 MG; Start 09/07/18 at 13:30 Thiamine HCl (Vitamin B1) 100 mg DAILY PO Last administered on 09/15/18 08:29; Admin Dose 100 MG; Start 09/10/18 at 09:00; Stop 09/17/18 at 08:59 Folic Acid (Folic Acid) 1 mg DAILY PO Last administered on 09/15/18 08:29; Admin Dose 1 MG; Start 09/10/18 at 09:00 Ciprofloxacin (Cipro) 500 mg BID@18 PO Last administered on 09/15/18 05:45; Admin Dose 500 MG; Start 09/11/18 at 18:00; Stop 09/25/18 at 17:59 Doxycycline Hyclate (Vibramycin) 100 mg BID PO Last administered on 09/15/18 08:30; Admin Dose 100 MG; Start 09/11/18 at 13:00; Stop 09/25/18 at 12:59 Furosemide (Lasix) 20 mg BID DIURETICS PO Last administered on 09/14/18 06:28; Admin Dose 20 MG; Start 09/11/18 at 18:00 Fluconazole (Diflucan) 200 mg DAILY PO Last administered on 09/15/18 08:29; Admin Dose 200 MG; Start 09/12/18 at 12:00; Stop 09/17/18 at 11:59 Nadolol (Corgard) 20 mg DAILY PO Last administered on 09/13/18at 08:35; Admin Dose 20 MG; Start 09/12/18 at 12:00 Lactulose (Enulose) 20 gm BID PO Last administered on 09/15/18at 08:29; Admin Dose 20 GM; Start 09/13/18 at 21:00 Magnesium Oxide (Mag-Ox 400) 400 mg BID PO Last administered on 09/15/18at 08:30; Admin Dose 400 MG; Start 09/13/18 at 21:00 Spironolactone (Aldactone) 50 mg DAILY PO ; Start 09/16/18 at 09:00 CHARLINE VINCENT NP Sep 15, 2018 10:35
--- NOTE | 2018-09-15 11:14 | PN ---
Date/Time of Note Date/Time of Note DATE: 09/15/18 TIME: 11:04 Assessment/Plan VTE Prophylaxis Risk score (from Ns)>0 risk: 2 [place] [facility] [place] Pharmacological prophylaxis: NA/contraindicated Pharm contraindication: liver dx Lines/Catheters IV [facility] (from [facility] Mid [facility] Urinary Cath still in place: Yes (monitor output) Reason Cath still needed: urinary retention, other (indicate) Assessment/Plan Hospital Course SUBJECTIVE: No acute overnight episodes. Has been tolerating diet OBJECTIVE: Vital signs-see below PHYSICAL EXAM: Constitutional: Nepali-speaking male, not in acute distress. Psych: nl mood/affect, no complaints Head: atraumatic, normocephalic Eyes: nl conjunctiva, nl sclera ENMT: mucosa pink and moist, nl external ears & nose Neck: non-tender, supple Respiratory: clear to auscultation, normal air movement Cardiovascular: nl pulses, regular rate and rhythm Gastrointestinal: +DISTENDED/tender RLQ, bowel sounds active in all 4 quadrants. Musculoskeletal/extremities: nl extremities to inspection, motor strength equal bilaterally, no focal deficit. Normal pulses,no cyanosis, no edema. Neurological: Alert oriented 2,nl speech, nl strength Skin: nl turgor :+Edema scrotum/penile ASSESSMENT/PLAN: 52-year-old homeless male with alcoholism, alcoholic liver cirrhosis, ascites here with altered mental status. 1.Decompensated Alcoholic liver disease with sequela of large volume ascites/ coagulopathy/portal HTN -s/p paracentesis 09/08/18, 09/10/2018 -We will adjust dose of Lasix and Aldactone 2/2 hypotension. -DC Corgard =>Not tolerating 2. Presumptive SBP -Antibiotic management per ID. Recommend Levaquin and Flagyl for another 5 days on discharge. No long-term prophylaxis antibiotic recommended per ID. 3. Hepatic encephalopathy -stable. -cont. thiamine, lactulose and rifaximin 4.Essential hypertension -On the hypotensive side. We will put parameters to allow room for Lasix . 5. Anemia of alcoholic liver disease. -Stable H&H. Continue to monitor. 6. Alcohol abuse -Advised on cessation. 7. Homelessness -roll on worker follow-up 8. Substance abuse -Urine toxicology positive for cannabinoids and alcohol. -Cessation advised DVT prophylaxis: SCDs/ambulation PUD prophylaxis: Protonix Disposition: Patient is medically stable for discharge, as per PT, patient needs retirement facility. Case management to arrange. Patient was seen in collaboration with Result Diagram: 09/14/18 0553 09/14/1853 Exam/Review of Systems Exam Vitals Vital Signs Date Temp Pulse Resp B/P (MAP) Pulse Ox O2 O2 Flow FiO2 Time Delivery Rate 09/15/18 82 18 90/56 (67) 06:15 09/15/18 9 Room Air 05:42 09/15/18 98.5 01:50 09/11/18 10 15:43 Intake and Output 09/14/18 09/14/18 09/15/18 1515:00 23:00 07:00 IntakeIntake Total 1100 ml 680 ml 1020 ml OutputOutput Total 750 ml 700 ml 850 ml BalanceBalance 350 ml -20 ml 170 ml Medications Medication Current Medications Ondansetron HCl (Zofran Inj) 4 mg Q6H PRN IV NAUSEA/VOMITING; Start 09/04/18 at 16:00 Acetaminophen (Tylenol Tab) 650 mg Q6H PRN PO .PAIN 1-3 OR TEMP Last administered on 09/14/18at 20:29; Admin Dose 650 MG; Start 09/04/18 at 16:00 Docusate Sodium (Colace) 100 mg Q12 PO Last administered on 09/15/18 08:30; Admin Dose 100 MG; Start 09/04/18 at 16:00 Pantoprazole (Protonix Tab) 40 mg DAILY@06 PO Last administered on 09/15/18at 05:46; Admin Dose 40 MG; Start 09/05/18 at 06:00 Lorazepam (Ativan) 1 mg Q4 PRN IV CONTROL WITHDRAWAL SYMPTOMS Last administered on 09/07/18at 15:42; Admin Dose 1 MG; Start 09/07/18 at 07:00 Rifaximin (Xifaxan) 550 mg BID PO Last administered on 09/15/18 08:30; Admin Dose 550 MG; Start 09/07/18 at 13:30 Thiamine HCl (Vitamin B1) 100 mg DAILY PO Last administered on 09/15/18 08:29; Admin Dose 100 MG; Start 09/10/18 at 09:00; Stop 09/17/18 at 08:59 Folic Acid (Folic Acid) 1 mg DAILY PO Last administered on 09/15/18 08:29; Admin Dose 1 MG; Start 09/10/18 at 09:00 Ciprofloxacin (Cipro) 500 mg BID@18 PO Last administered on 09/15/18 05:45; Admin Dose 500 MG; Start 09/11/18 at 18:00; Stop 09/25/18 at 17:59 Doxycycline Hyclate (Vibramycin) 100 mg BID PO Last administered on 09/15/18 08:30; Admin Dose 100 MG; Start 09/11/18 at 13:00; Stop 09/25/18 at 12:59 Furosemide (Lasix) 20 mg BID DIURETICS PO Last administered on 09/14/18 06:28; Admin Dose 20 MG; Start 09/11/18 at 18:00 Fluconazole (Diflucan) 200 mg DAILY PO Last administered on 09/15/18 08:29; Admin Dose 200 MG; Start 09/12/18 at 12:00; Stop 09/17/18 at 11:59 Nadolol (Corgard) 20 mg DAILY PO Last administered on 09/13/18 08:35; Admin Dose 20 MG; Start 09/12/18 at 12:00 Lactulose (Enulose) 20 gm BID PO Last administered on 09/15/18 08:29; Admin Dose 20 GM; Start 09/13/18 at 21:00 Magnesium Oxide (Mag-Ox 400) 400 mg BID PO Last administered on 09/15/18 08:30; Admin Dose 400 MG; Start 09/13/18 at 21:00 Spironolactone (Aldactone) 50 mg DAILY PO ; Start 09/16/18 at 09:00 VIRAJ LUU NP Sep 15, 2018 11:14
--- NOTE | 2018-09-15 13:32 | PN ---
Date/Time of Note Date/Time of Note DATE: 09/15/18 TIME: 13:28 Assessment/Plan VTE Prophylaxis Risk score (from Nsg)>0 risk: 2 SCD applied (from Nsg): Yes Pharmacological prophylaxis: other (scds) Lines/Catheters IV Catheter Type (from Nrsg): Mid Line Urinary Cath still in place: Yes (monitor output) Reason Cath still needed: other (indicate) (monitor out-put) Assessment/Plan Hospital Course Assessment: Hepatic encephalopathy- improved Alcoholic liver disease with ascites- MELD 18 , (DF on admission 24.8) -Thrombocytopenia- stable -Coagulopathy -Normocytic anemia- stable EGD 09/11/18 Evidence of portal hypertension No esophageal varices Portal hypertensive gastropathy Minimal distal esophagitis Indirect hyperbilirubinemia- resolved Elevated AST- slightly better today MIREYA- resolved-Nephrology following SBP- on Zosyn Fevers- 2/2 SBP patient empirically on Zosyn- improved -Blood cx and urine cx without - no growth -CXR-The lungs are clear of acute infiltrates, edema, effusions, or masses. There is mild left basilar atelectasis. -paracentesis today will r/o SBP- (paracentesis + for SBP) ETOH abuse Marijuana use Hypertension Homelessness -SW consulted Mild flattening and patchy sclerotic changes left femoral head, could be sequela of prior trauma or osteonecrosis. Hypomagnesemia- replaced Plan: Continue current plan of care Strict I&O- daily weight IgG- pending D/c planning to SNF currently pending Patient seen in collaboration with Dr. Santos/Grzegorz Subjective: Course reviewed with nursing staff Patient interviewed and examined All labs, imaging and other results reviewed Pt fell last night, bruise noted to his back, Currently feels ok, unable to given diuretic today 2/2 to hypotension Maintain close observation D/c planning to SNF currently pending PHYSICAL EXAMINATION: GENERAL: Alert & oriented, in no acute distress SKIN: No lesions EYES: Pupils equal reactive to light, no discharge. EARS/NOSE AND THROAT: Ears normal, nose normal, oropharynx normal. NECK: Supple, no masses CHEST: Inspection within normal limits. CARDIOVASCULAR: Heart: Regular rate and rhythm RESPIRATORY: Lungs clear to auscultation and percussion, no wheezing, no rubs GASTROINTESTINAL AND LIVER: Abdomen: Soft, non tenderness, distended, no hernias, no masses, no organomegaly, ascites, no guarding, no rebound tendernes s, normoactive bowel sounds. Rectal: Deferred. EXTREMITIES: BLE edema : swelling to scrotum and penis Result Diagram: 09/14/1855209/14/18552 Exam/Review of Systems Exam Vitals Vital Signs Date Temp Pulse Resp B/P (MAP) Pulse Ox O2 O2 Flow FiO2 Time Delivery Rate 09/15/18 82 18 90/56 (67) 06:15 09/15/18 9 Room Air 05:42 09/15/18 98.5 01:50 09/11/18 10 15:43 Intake and Output 09/14/18 09/14/18 09/15/18 1515:00 23:00 07:00 IntakeIntake Total 1100 ml 680 ml 1020 ml OutputOutput Total 750 ml 700 ml 850 ml BalanceBalance 350 ml -20 ml 170 ml Medications Medication Current Medications Ondansetron HCl (Zofran Inj) 4 mg Q6H PRN IV NAUSEA/VOMITING; Start 09/04/18 at 16:00 Acetaminophen (Tylenol Tab) 650 mg Q6H PRN PO .PAIN 1-3 OR TEMP Last administered on 09/14/18at 20:29; Admin Dose 650 MG; Start 09/04/18 at 16:00 Docusate Sodium (Colace) 100 mg Q12 PO Last administered on 09/15/18 08:30; Admin Dose 100 MG; Start 09/04/18 at 16:00 Pantoprazole (Protonix Tab) 40 mg DAILY@06 PO Last administered on 09/15/18 05:46; Admin Dose 40 MG; Start 09/05/18 at 06:00 Lorazepam (Ativan) 1 mg Q4 PRN IV CONTROL WITHDRAWAL SYMPTOMS Last administered on 09/07/18at 15:42; Admin Dose 1 MG; Start 09/07/18 at 07:00 Rifaximin (Xifaxan) 550 mg BID PO Last administered on 09/15/18 08:30; Admin Dose 550 MG; Start 09/07/18 at 13:30 Thiamine HCl (Vitamin B1) 100 mg DAILY PO Last administered on 09/15/18 08:29; Admin Dose 100 MG; Start 09/10/18 at 09:00; Stop 09/17/18 at 08:59 Folic Acid (Folic Acid) 1 mg DAILY PO Last administered on 09/15/18 08:29; Admin Dose 1 MG; Start 09/10/18 at 09:00 Ciprofloxacin (Cipro) 500 mg BID@18 PO Last administered on 09/15/18 05:45; Admin Dose 500 MG; Start 09/11/18 at 18:00; Stop 09/25/18 at 17:59 Doxycycline Hyclate (Vibramycin) 100 mg BID PO Last administered on 09/15/18 08:30; Admin Dose 100 MG; Start 09/11/18 at 13:00; Stop 09/25/18 at 12:59 Furosemide (Lasix) 20 mg BID DIURETICS PO Last administered on 09/14/18 06:28; Admin Dose 20 MG; Start 09/11/18 at 18:00 Fluconazole (Diflucan) 200 mg DAILY PO Last administered on 09/15/18 08:29; Admin Dose 200 MG; Start 09/12/18 at 12:00; Stop 09/17/18 at 11:59 Lactulose (Enulose) 20 gm BID PO Last administered on 09/15/18 08:29; Admin Dose 20 GM; Start 09/13/18 at 21:00 Magnesium Oxide (Mag-Ox 400) 400 mg BID PO Last administered on 09/15/18 08:30; Admin Dose 400 MG; Start 09/13/18 at 21:00 Spironolactone (Aldactone) 50 mg DAILY PO ; Start 09/16/18 at 09:00 VIVIENNE SANCHEZ Sep 15, 2018 13:32
[2018-09-15 14:01] VITALS: BP 104/55; PULSE 89; RESP 18
[2018-09-15 20:00] VITALS: BP_SYST 107; BP_SYST 93; BP_DIAS 50; BP_DIAS 71; PULSE 101; PULSE 96; RESP 17; RESP 19
[2018-09-16 02:04] VITALS: BP 103/56; PULSE 92; RESP 17
[2018-09-16] MEDS: FUROSEMIDE 20 MG TAB PO SCH ×2 (05:09→17:31)
[2018-09-16] MEDS: CIPROFLOXACIN 500 MG TAB PO SCH ×2 (05:22→17:31)
[2018-09-16] MEDS: PANTOPRAZOLE (EC) 40 MG TAB PO SCH (05:22)
[2018-09-16 07:43] VITALS: BP 92/55; PULSE 90; RESP 16
[2018-09-16] MEDS: LACTULOSE 30ML CUP PO SCH ×2 (08:56→20:21)
[2018-09-16] MEDS: FLUCONAZOLE 200 MG TAB PO SCH (08:58)
[2018-09-16] MEDS: MAGNESIUM OXIDE 400 MG TAB PO SCH ×2 (08:58→20:21)
[2018-09-16] MEDS: DOXYCYCLINE 100 MG TAB PO SCH ×2 (08:58→20:21)
[2018-09-16] MEDS: RIFAXIMIN 550 MG TAB PO SCH ×2 (08:58→20:21)
[2018-09-16] MEDS: DOCUSATE SODIUM 100 MG CAP PO SCH ×2 (08:58→20:21)
[2018-09-16] MEDS: FOLIC ACID 1 MG TAB PO SCH (08:58)
[2018-09-16] MEDS: THIAMINE 100 MG TAB PO SCH (08:58)
[2018-09-16] MEDS: SPIRONOLACTONE 50 MG TAB PO SCH (08:59)
--- NOTE | 2018-09-16 09:12 | PN ---
DATE: 09/16/2018 SUBJECTIVE: The patient is stable. No events overnight. OBJECTIVE: VITAL SIGNS: Blood pressure is 92/55, respiration is 16, pulse 90, temperature 98.7. HEENT: Head is normocephalic. NECK: Supple. HEART: Regular rate. LUNGS: Show diminished breath sounds at the base. ABDOMEN: Soft, nontender to palpation without rebound or guarding. EXTREMITIES: Negative for clubbing, cyanosis. Positive edema, improving. DERMATOLOGIC: No rashes. MUSCULOSKELETAL: No joint effusion. NEUROLOGIC: No change in exam. MEDICATIONS: Have been reviewed. LABORATORY DATA: Has been reviewed. The patient has a noted magnesium of 1.6. Repeat laboratory da ta is pending. ASSESSMENT AND PLAN: 1. Nonoliguric acute kidney injury with previously normal baseline creatinine. Etiology is secondar y to hemodynamics. Renal function stabilized. Continue to monitor. 2. Hypomagnesemia. Continue to monitor and if needed. 3. Anemia. Monitor hemoglobin and hematocrit levels. 4. Mineral bone disorder. Monitor calcium and phosphorus levels. 5. Volume overload secondary to cirrhosis. Continue low-dose diuretic therapy. 6. Hypertension, improved. 7. Decompensated cirrhosis. Continue medical management. Follow up with GI. 8. Urinary retention, status post [place] catheter placement. Dictated By: HELEN SINHA DO NR/NTS Conf#: [id number] DID#: [id number] CC: AJAY SAUCEDA MD;*EndCC*
--- NOTE | 2018-09-16 11:57 | PN ---
Date/Time of Note Date/Time of Note DATE: 09/16/18 TIME: 11:53 Assessment/Plan VTE Prophylaxis Risk score (from Ns)>0 risk: 4 SCD applied (from Ns): Yes Pharmacological prophylaxis: NA/contraindicated Pharm contraindication: liver dx Lines/Catheters IV Catheter Type (from Rust): PICC Line Central line still needed: Yes Urinary Cath still in place: Yes Reason Cath still needed: urinary retention Assessment/Plan Hospital Course SUBJECTIVE:With increased abd distention. OBJECTIVE: Vital signs-see below PHYSICAL EXAM: Constitutional: Tongan-speaking male, not in acute distress. Psych: nl mood/affect, no complaints Head: atraumatic, normocephalic Eyes: nl conjunctiva, nl sclera ENMT: mucosa pink and moist, nl external ears & nose Neck: non-tender, supple Respiratory: clear to auscultation, normal air movement Cardiovascular: nl pulses, regular rate and rhythm Gastrointestinal: +DISTENDED/tender RLQ, bowel sounds active in all 4 quadrants. Musculoskeletal/extremities: nl extremities to inspection, motor strength equal bilaterally, no focal deficit. Normal pulses,no cyanosis, no edema. Neurological: Alert oriented 2,nl speech, nl strength Skin: nl turgor :+Edema scrotum/penile ASSESSMENT/PLAN: 52-year-old homeless male with alcoholism, alcoholic liver cirrhosis, ascites here with altered mental status. 1.Decompensated Alcoholic liver disease with sequela of large volume ascites/coagulopathy/portal HTN -s/p paracentesis 09/08/18, 09/10/2018 -today again noted increased abd distention=>Repeat US paracentesis -cont Lasix and Aldactone as BP allows -unable to tolerates Corgard 2/2/hypotension -oupt GI/splitter machine f/u=>unfortunately nom plan to quit alcoholism 2. Presumptive SBP -Antibiotic management per ID. Recommend Levaquin and Flagyl for another 5 days on discharge. No long-term prophylaxis antibiotic recommended per ID. 3. Hepatic encephalopathy -stable. -cont. thiamine, lactulose and rifaximin 4.Hypotension 2/2 Corgard -no stable. 5. Anemia of alcoholic liver disease. -Stable H&H. Continue to monitor. 6. Alcohol abuse -Advised on cessation. 7. Homelessness -nephrology social worker follow-up 8. Substance abuse -Urine toxicology positive for cannabinoids and alcohol. -Cessation advised DVT prophylaxis: SCDs/ambulation PUD prophylaxis: Protonix Disposition: needs paracentesis today... DC plan in 24 hrs if asymptomatic to a recup center=.refused SNF placement. Patient was seen in collaboration with Result Diagram: 09/14/1853 09/14/1853 Results 24hrs Laboratory Tests Test 09/16/18 04:28 Total Bilirubin 0.9 Direct Bilirubin 0.00 Indirect Bilirubin 0.9 Aspartate Amino Transf (AST/SGOT) 56 H Alanine Aminotransferase (ALT/SGPT) 28 Alkaline Phosphatase 75 Total Protein 5.8 L Albumin 2.5 L Exam/Review of Systems Exam Vitals Vital Signs Date Temp Pulse Resp B/P (MAP) Pulse Ox O2 O2 Flow FiO2 Time Delivery Rate 09/16/18 98.7 90 16 92/55 (67) 96 Room Air 07:43 Intake and Output 09/15/18 09/15/18 09/16/18 1515:00 23:00 07:00 IntakeIntake Total 640 ml 500 ml OutputOutput Total 500 ml 800 ml BalanceBalance -500 ml -160 ml 500 ml Results Results 24hrs Laboratory Tests Test 09/16/18 04:28 Total Bilirubin 0.9 Direct Bilirubin 0.00 Indirect Bilirubin 0.9 Aspartate Amino Transf (AST/SGOT) 56 H Alanine Aminotransferase (ALT/SGPT) 28 Alkaline Phosphatase 75 Total Protein 5.8 L Albumin 2.5 L Medications Medication Current Medications Ondansetron HCl (Zofran Inj) 4 mg Q6H PRN IV NAUSEA/VOMITING; Start 09/04/18 at 16:00 Acetaminophen (Tylenol Tab) 650 mg Q6H PRN PO .PAIN 1-3 OR TEMP Last administered on 09/14/18at 20:29; Admin Dose 650 MG; Start 09/04/18 at 16:00 Docusate Sodium (Colace) 100 mg Q12 PO Last administered on 09/16/18at 08:58; Admin Dose 100 MG; Start 09/04/18 at 16:00 Pantoprazole (Protonix Tab) 40 mg DAILY@06 PO Last administered on 09/16/18at 05:22; Admin Dose 40 MG; Start 09/05/18 at 06:00 Lorazepam (Ativan) 1 mg Q4 PRN IV CONTROL WITHDRAWAL SYMPTOMS Last administered on 09/07/18 15:42; Admin Dose 1 MG; Start 09/07/18 at 07:00 Rifaximin (Xifaxan) 550 mg BID PO Last administered on 09/16/18 08:58; Admin Dose 550 MG; Start 09/07/18 at 13:30 Thiamine HCl (Vitamin B1) 100 mg DAILY PO Last administered on 09/16/18 08:58; Admin Dose 100 MG; Start 09/10/18 at 09:00; Stop 09/17/18 at 08:59 Folic Acid (Folic Acid) 1 mg DAILY PO Last administered on 09/16/18 08:58; Admin Dose 1 MG; Start 09/10/18 at 09:00 Ciprofloxacin (Cipro) 500 mg BID@ PO Last administered on 09/16/18 05:22; Admin Dose 500 MG; Start 09/11/18 at 18:00; Stop 09/25/18 at 17:59 Doxycycline Hyclate (Vibramycin) 100 mg BID PO Last administered on 09/16/18 08:58; Admin Dose 100 MG; Start 09/11/18 at 13:00; Stop 09/25/18 at 12:59 Furosemide (Lasix) 20 mg BID DIURETICS PO Last administered on 09/14/18 06:28; Admin Dose 20 MG; Start 09/11/18 at 18:00 Fluconazole (Diflucan) 200 mg DAILY PO Last administered on 09/16/18 08:58; Admin Dose 200 MG; Start 09/12/18 at 12:00; Stop 09/17/18 at 11:59 Lactulose (Enulose) 20 gm BID PO Last administered on 09/16/18 08:56; Admin Dose 20 GM; Start 09/13/18 at 21:00 Magnesium Oxide (Mag-Ox 400) 400 mg BID PO Last administered on 09/16/18 08:58; Admin Dose 400 MG; Start 09/13/18 at 21:00 Spironolactone (Aldactone) 50 mg DAILY PO Last administered on 09/16/18 08:59; Admin Dose 50 MG; Start 09/16/18 at 09:00 VIRAJ LUU NP Sep 16, 2018 11:57
[2018-09-16] MEDS ORDERED: DIPHENHYDRAMINE 1%/ZINC 28.3 GM CR TOP PRN (12:00)
[2018-09-16 13:37] VITALS: BP 113/51; PULSE 91; RESP 16
[2018-09-16 14:01] VITALS: BP 97/52; PULSE 94; RESP 16
[2018-09-16] MEDS ORDERED: LIDOCAINE 1% (MPF) 5 ML VIAL ONE (14:06)
--- NOTE | 2018-09-16 14:33 | PN ---
Date/Time of Note Date/Time of Note DATE: 09/16/18 TIME: 14:30 Assessment/Plan VTE Prophylaxis Risk score (from Nsg)>0 risk: 4 SCD applied (from Nsg): Yes Pharmacological prophylaxis: other (scds) Lines/Catheters IV Catheter Type (from Nrsg): PICC Line Central line still needed: Yes (meds) Urinary Cath still in place: Yes Reason Cath still needed: other (indicate) (monitor output) Assessment/Plan Hospital Course Assessment: Hepatic encephalopathy- improved Alcoholic liver disease with ascites- MELD 18 , (DF on admission 24.8) -Thrombocytopenia- stable -Coagulopathy -Normocytic anemia- stable EGD 09/11/18 Evidence of portal hypertension No esophageal varices Portal hypertensive gastropathy Minimal distal esophagitis Indirect hyperbilirubinemia- resolved Elevated AST- slightly better today MIREYA- resolved-Nephrology following SBP- on Zosyn Fevers- 08/29 SBP patient empirically on Zosyn- improved -Blood cx and urine cx without - no growth -CXR-The lungs are clear of acute infiltrates, edema, effusions, or masses. There is mild left basilar atelectasis. -paracentesis today will r/o SBP- (paracentesis + for SBP) ETOH abuse Marijuana use Hypertension Homelessness -SW consulted Mild flattening and patchy sclerotic changes left femoral head, could be sequela of prior trauma or osteonecrosis. Hypomagnesemia- replaced Plan: S/p paracentesis today Continue current plan of care- as BP allows Strict I&O- daily weight IgG- pending D/c planning- in process- to recuperative care - does not meet SNF criteria Pt cleared from GI point of view Patient seen in collaboration with Dr. Santos/Grzegorz Subjective: Course reviewed with nursing staff Patient interviewed and examined All labs, imaging and other results reviewed No over night events, d/c planning for am No complaints at this time. Continue current plan of care PHYSICAL EXAMINATION: GENERAL: Alert & oriented, in no acute distress SKIN: No lesions CHEST: Inspection within normal limits. CARDIOVASCULAR: Heart: Regular rate and rhythm RESPIRATORY: Lungs clear to auscultation and percussion, no wheezing, no rubs GASTROINTESTINAL AND LIVER: Abdomen: Soft, non tenderness, distended, no hernias, no masses, no organomegaly, ascites, no guarding, no rebound tenderness, normoactive bowel sounds. Rectal: Deferred. EXTREMITIES: BLE edema : swelling to scrotum and penis Result Diagram: 09/14/18 0553 09/14/18 0553 Results 24hrs Laboratory Tests Test 09/16/18 04:28 Total Bilirubin 0.9 Direct Bilirubin 0.00 Indirect Bilirubin 0.9 Aspartate Amino Transf (AST/SGOT) 56 H Alanine Aminotransferase (ALT/SGPT) 28 Alkaline Phosphatase 75 Total Protein 5.8 L Albumin 2.5 L Exam/Review of Systems Exam Vitals Vital Signs Date Temp Pulse Resp B/P (MAP) Pulse Ox O2 O2 Flow FiO2 Time Delivery Rate 09/16/18 94 16 97/52 (67) 98 Room Air 14:01 09/16/18 98.7 07:43 Intake and Output 09/15/18 09/15/18 09/16/18 1515:00 23:00 07:00 IntakeIntake Total 640 ml 500 ml OutputOutput Total 500 ml 800 ml BalanceBalance -500 ml -160 ml 500 ml Results Results 24hrs Laboratory Tests Test 09/16/18 04:28 Total Bilirubin 0.9 Direct Bilirubin 0.00 Indirect Bilirubin 0.9 Aspartate Amino Transf (AST/SGOT) 56 H Alanine Aminotransferase (ALT/SGPT) 28 Alkaline Phosphatase 75 Total Protein 5.8 L Albumin 2.5 L Medications Medication Current Medications Ondansetron HCl (Zofran Inj) 4 mg Q6H PRN IV NAUSEA/VOMITING; Start 09/04/18 at 16:00 Acetaminophen (Tylenol Tab) 650 mg Q6H PRN PO .PAIN 1-3 OR TEMP Last administered on 09/14/18at 20:29; Admin Dose 650 MG; Start 09/04/18 at 16:00 Docusate Sodium (Colace) 100 mg Q12 PO Last administered on 09/16/18at 08:58; Admin Dose 100 MG; Start 09/04/18 at 16:00 Pantoprazole (Protonix Tab) 40 mg DAILY@06 PO Last administered on 09/16/18at 05:22; Admin Dose 40 MG; Start 09/05/18 at 06:00 Lorazepam (Ativan) 1 mg Q4 PRN IV CONTROL WITHDRAWAL SYMPTOMS Last administered on 09/07/18at 15:42; Admin Dose 1 MG; Start 09/07/18 at 07:00 Rifaximin (Xifaxan) 550 mg BID PO Last administered on 09/16/18 08:58; Admin Dose 550 MG; Start 09/07/18 at 13:30 Thiamine HCl (Vitamin B1) 100 mg DAILY PO Last administered on 09/16/18 08:58; Admin Dose 100 MG; Start 09/10/18 at 09:00; Stop 09/17/18 at 08:59 Folic Acid (Folic Acid) 1 mg DAILY PO Last administered on 09/16/18 08:58; Admin Dose 1 MG; Start 09/10/18 at 09:00 Ciprofloxacin (Cipro) 500 mg BID@18 PO Last administered on 09/16/18 05:22; Admin Dose 500 MG; Start 09/11/18 at 18:00; Stop 09/25/18 at 17:59 Doxycycline Hyclate (Vibramycin) 100 mg BID PO Last administered on 09/16/18 08:58; Admin Dose 100 MG; Start 09/11/18 at 13:00; Stop 09/25/18 at 12:59 Furosemide (Lasix) 20 mg BID DIURETICS PO Last administered on 09/14/18 06: 28; Admin Dose 20 MG; Start 09/11/18 at 18:00 Fluconazole (Diflucan) 200 mg DAILY PO Last administered on 09/16/18 08:58; Admin Dose 200 MG; Start 09/12/18 at 12:00; Stop 09/17/18 at 11:59 Lactulose (Enulose) 20 gm BID PO Last administered on 09/16/18 08:56; Admin Dose 20 GM; Start 09/13/18 at 21:00 Magnesium Oxide (Mag-Ox 400) 400 mg BID PO Last administered on 09/16/18 08:58; Admin Dose 400 MG; Start 09/13/18 at 21:00 Spironolactone (Aldactone) 50 mg DAILY PO Last administered on 09/16/18 08:59; Admin Dose 50 MG; Start 09/16/18 at 09:00 Diphenhydramine/ Zinc Oxide (Benadryl 1% Cr) 1 applic Q6 PRN TOP itching; Start 09/16/18 at 12:00 VIVIENNE SANCHEZ Sep 16, 2018 14:33
[2018-09-16 14:34] VITALS: BP 93/49; PULSE 97; RESP 18
--- NOTE | 2018-09-16 14:48 | CONS ---
Assessment/Plan Assessment/Plan Hospital Course (Demo Recall) ID PROGRESS NOTE CURRENT ABX: DAY #9 => Doxycycline + Cipro + Diflucan + Rifaximin s/p Zosyn #5 24H INTERVAL SUMMARY * CLINICALLY STATUS QUO == NO NEW [place] DC PLANNING === Awake, alert, no fevers, NAD, without dyspnea * c/o persistent scrotal edema -- due to hepatic failure -- scrotum is elevated MICRO/OTHER * All Micro is negative to date. PHYSICAL EXAMINATION: GENERAL: Afebrile, VSS HEENT: AT, NC, anicteric NECK: Supple, trach midline CHEST: Equal chest rise bilaterally, without dyspnea on observation HEART: Pulse RRR ABDOMEN: Distended s/penoscrotal edema EXTREMITIES: Warm, dry SKIN: No rash, no diaphoresis ID ASSESSMENT 52 yo M admit with: 1. Decompensated alcoholic liver cirrhosis 2. Recurrent ascites status post paracentesis 09/08, 09/10 3. Probable SBP per cytology 4. Acute kidney injury on admission 5. Penoscrotal edema (-)MRSA Nares ABX ALLERGIES: KNDA INVASIVES: PIV CURRENT ABX: DAY #9 => Doxycycline + Cipro + Diflucan + Rifaximin s/p Zosyn #5 ID RECOMMENDATIONS/PLAN: 1. May DC home on Levaquin 500mg po daily + Flagyl 150mg po TID x TO COMPLETE 10 DAYS . Consultation Date/Type/Reason Admit Date/Time Sep 04, 2018 at 11:46 Initial Consult Date 09/07/18 Date/Time of Note DATE: 09/16/18 TIME: 14:46 Exam/Review of Systems Exam Vitals Vital Signs Date Temp Pulse Resp B/P (MAP) Pulse Ox O2 O2 Flow FiO2 Time Delivery Rate 09/16/18 98.8 97 18 93/49 (64) 99 Room Air 14:34 Intake and Output 09/15/18 09/15/18 09/16/18 1414:59 22:59 06:59 IntakeIntake Total 640 ml 500 ml OutputOutput Total 500 ml 800 ml BalanceBalance -500 ml -160 ml 500 ml Results Result Diagram: 09/14/18 0553 09/14/18 0553 Results 24hrs Laboratory Tests Test 09/16/18 04:28 Total Bilirubin 0.9 Direct Bilirubin 0.00 Indirect Bilirubin 0.9 Aspartate Amino Transf (AST/SGOT) 56 H Alanine Aminotransferase (ALT/SGPT) 28 Alkaline Phosphatase 75 Total Protein 5.8 L Albumin 2.5 L Medications Medication Current Medications Ondansetron HCl (Zofran Inj) 4 mg Q6H PRN IV NAUSEA/VOMITING; Start 09/04/18 at 16:00 Acetaminophen (Tylenol Tab) 650 mg Q6H PRN PO .PAIN 1-3 OR TEMP Last adm inistered on 09/14/18 20:29; Admin Dose 650 MG; Start 09/04/18 at 16:00 Docusate Sodium (Colace) 100 mg Q12 PO Last administered on 09/16/18 08:58; Admin Dose 100 MG; Start 09/04/18 at 16:00 Pantoprazole (Protonix Tab) 40 mg DAILY@06 PO Last administered on 09/16/18 05:22; Admin Dose 40 MG; Start 09/05/18 at 06:00 Lorazepam (Ativan) 1 mg Q4 PRN IV CONTROL WITHDRAWAL SYMPTOMS Last administered on 09/07/18 15:42; Admin Dose 1 MG; Start 09/07/18 at 07:00 Rifaximin (Xifaxan) 550 mg BID PO Last administered on 09/16/18 08:58; Admin Dose 550 MG; Start 09/07/18 at 13:30 Thiamine HCl (Vitamin B1) 100 mg DAILY PO Last administered on 09/16/18 08:58; Admin Dose 100 MG; Start 09/10/18 at 09:00; Stop 09/17/18 at 08:59 Folic Acid (Folic Acid) 1 mg DAILY PO Last administered on 09/16/18 08:58; Admin Dose 1 MG; Start 09/10/18 at 09:00 Ciprofloxacin (Cipro) 500 mg BID@06,18 PO Last administered on 09/16/18 05:22; Admin Dose 500 MG; Start 09/11/18 at 18:00; Stop 09/25/18 at 17:59 Doxycycline Hyclate (Vibramycin) 100 mg BID PO Last administered on 09/16/18 08:58; Admin Dose 100 MG; Start 09/11/18 at 13:00; Stop 09/25/18 at 12:59 Furosemide (Lasix) 20 mg BID DIURETICS PO Last administered on 2/18/19at 06:28; Admin Dose 20 MG; Start 09/11/18 at 18:00 Fluconazole (Diflucan) 200 mg DAILY PO Last administered on 09/16/18at 08:58; Admin Dose 200 MG; Start 09/12/18 at 12:00; Stop 09/17/18 at 11:59 Lactulose (Enulose) 20 gm BID PO Last administered on 09/16/18at 08:56; Admin Dose 20 GM; Start 09/13/18 at 21:00 Magnesium Oxide (Mag-Ox 400) 400 mg BID PO Last administered on 09/16/18at 0 8:58; Admin Dose 400 MG; Start 09/13/18 at 21:00 Spironolactone (Aldactone) 50 mg DAILY PO Last administered on 09/16/18at 08:59; Admin Dose 50 MG; Start 09/16/18 at 09:00 Diphenhydramine/ Zinc Oxide (Benadryl 1% Cr) 1 applic Q6 PRN TOP itching; Start 09/16/18 at 12:00 CHARLINE VINCENT NP Sep 16, 2018 14:48
[2018-09-16 19:52] VITALS: BP 101/53; PULSE 97; RESP 20
[2018-09-17 01:40] VITALS: BP 106/58; PULSE 90; RESP 20
[2018-09-17] MEDS: PANTOPRAZOLE (EC) 40 MG TAB PO SCH (05:59)
[2018-09-17] MEDS: CIPROFLOXACIN 500 MG TAB PO SCH ×2 (05:59→17:29)
[2018-09-17] MEDS: FUROSEMIDE 20 MG TAB PO SCH ×2 (05:59→17:30)
[2018-09-17 08:00] VITALS: BP 100/60; PULSE 85; RESP 18
--- NOTE | 2018-09-17 08:41 | PN ---
DATE: 09/17/2018 SUBJECTIVE: Patient stable, no events overnight. OBJECTIVE: VITAL SIGNS: Blood pressure is 106/58, respirations 20, pulse 90, temperature 98.3. HEENT: Head is normocephalic. NECK: Supple. HEART: Regular rate. LUNGS: Show diminished breath sounds at the base. ABDOMEN: Soft, nontender to palpation without rebound or guarding. EXTREMITIES: Negative for clubbing, cyanosis. Positive edema. DERMATOLOGIC: No rashes. MUSCULOSKELETAL: No joint effusion. NEUROLOGIC: No change in exam. MEDICATIONS: Reviewed. LABORATORY DATA: Shows a sodium 140, potassium 4.0, magnesium 0.9. ASSESSMENT AND PLAN: 1. Nonoliguric acute kidney injury with previously normal baseline creatinine. Etiology secondary t o hemodynamics. Renal function stabilized. Continue to monitor. 2. Hypomagnesemia, etiology secondary to history of ETOH abuse causing urinary magnesium wasting in conjunction with diuretic therapy. Continue magnesium supplementation. Agree with IV magnesium sulf ate. Monitor closely. 3. Anemia. Monitor hemoglobin and hematocrit levels. 4. Mineral bone disorder, monitor calcium and phosphorus levels. 5. Volume overload secondary to cirrhosis. Continue low-dose diuretic therapy. 6. Hypertension, improved. 7. Decompensated cirrhosis. Continue medical management. Follow up with GI. 8. Urinary retention, status post [place] catheter placement. Dictated By: HELEN RAMOS/NTS Conf#: [id number] DID#: [id number] CC: AJAY SAUCEDA MD;*EndCC*
[2018-09-17] MEDS: RIFAXIMIN 550 MG TAB PO SCH (08:48)
[2018-09-17] MEDS: DOCUSATE SODIUM 100 MG CAP PO SCH (08:49)
[2018-09-17] MEDS: FOLIC ACID 1 MG TAB PO SCH (08:49)
[2018-09-17] MEDS: LACTULOSE 30ML CUP PO SCH (08:49)
[2018-09-17] MEDS: DOXYCYCLINE 100 MG TAB PO SCH (08:49)
[2018-09-17] MEDS: FLUCONAZOLE 200 MG TAB PO SCH (08:49)
[2018-09-17] MEDS: MAGNESIUM OXIDE 400 MG TAB PO SCH (08:49)
[2018-09-17] MEDS: SPIRONOLACTONE 50 MG TAB PO SCH (08:50)
[2018-09-17] MEDS ORDERED: MAGNESIUM SULFATE 3 GM in DEXTROSE 5% 100 ML IVPB ONE ×2 (09:00→12:00)
[2018-09-17] MEDS ORDERED: LACT20SO2 PO (11:01)
[2018-09-17] MEDS ORDERED: LEVO500T10 PO (11:01)
[2018-09-17] MEDS ORDERED: SPIR50TA PO (11:01)
[2018-09-17] MEDS ORDERED: LAS20 PO (11:01)
[2018-09-17] MEDS ORDERED: METR250T PO (11:01)
--- NOTE | 2018-09-17 11:11 | DS ---
Date/Time of Note Date/Time of Note DATE: 09/17/18 TIME: 11:05 Discharge Summary Admission/Discharge Info Admit Date/Time Sep 04, 2018 at 11:46 Discharge Date/Time Discharge Diagnosis Decompensated Alcoholic liver disease with sequela of large volume ascites/c oagulopathy/portal HTN Ascites requiring multiple paracentesis. Presumptive SBP Hepatic encephalopathy Anemia of alcoholic liver diseas Alcohol abuse Homelessness Substance abuse Hypomagnesemia Patient Condition: Stable Consults , gastroenterology , infectious disease. Procedures 09/07/2018. Abdominal ultrasound. IMPRESSION: Moderate ascites 09/08/2018. Paracentesis with 1.0 L fluid aspirated and sent for studies. 09/10/2018. Ultrasound-guided paracentesis with 3.8 L of fluid aspirated and discarded 09/16/2018. Ultrasound-guided paracentesis with 2.7 L of fluid aspirated and discarded. 09/10/2018. CT abdomen and pelvis without contrast. IMPRESSION: 1. Cirrhotic changes of the liver. 2. Portal hypertension with splenomegaly. 3. Mild scattered ascites. 4. Anasarca. New since prior exam. 5. Cholelithiasis. 6. Medullary nephrocalcinosis. 7. Avascular necrosis with osteoarthritis of the left femoral head. Hospital Course 52-year-old homeless male with alcoholism, alcoholic liver cirrhosis, ascites here with altered mental status. Patient required paracentesis multiple times and in total 3 sessions with large amount of fluid removal. Initial fluid analysis was showing possible SBP although cultures were negative. As such, he was treated for presumptive SBP with antibiotic per ID recommendations. Patient did well. 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 He was also noted for hypomagnesemia requiring frequent repletion. There was no EKG changes or arrhythmias. Renal function remained stable and was able to tolerate low-dose Aldactone and Lasix with stable creatinine. Encephalopathy resolved. He was continued on lactulose, rifaximin, Aldactone. The patient's blood pressure was running lower side with Coreg, as such it was discontinued to allow more room for Lasix. He was counseled on alcohol cessation and substance abuse. Unfortunately, patient is also homeless for which Case reviewed by social service, [facility]. Patient also refused senior care facility admission. At this time, he is medically stable to be discharged with outpatient hepatology/gastroenterology follow-up. Again, patient was repeatedly counseled on alcohol cessation. Patient verbalized instructions. Approximately 60 minutes was spent on coordinating the discharge on this patient. Patient was seen in collaboration with DR.Abe David Shields Active Scripts Metronidazole* (Flagyl*) 250 Mg Tablet, 250 MG PO TID, #30 TAB Prov:LUU,VIRAJ V. EQUIPMENT OPERAT0R 09/17/18 Levofloxacin* (Levofloxacin*) 500 Mg Tablet, 500 MG PO DAILY, #10 TAB Prov:LUU,VIRAJ V. EQUIPMENT OPERAT0R 09/17/18 Lactulose* (Lactulose*) 20 Gm/30 Ml Solution, 20 GM PO DAILY, #30 DOSE Prov:LUU,VIRAJ V. EQUIPMENT OPERAT0R 09/17/18 Furosemide (Lasix) 20 Mg Tab, 20 MG PO BID DIURETICS, #60 TAB Prov:LUU,VIRAJ V. EQUIPMENT OPERAT0R 09/17/18 Spironolactone* (Aldactone*) 50 Mg Tablet, 50 MG PO DAILY, #30 TAB Prov:LUU,VIRAJ V. EQUIPMENT OPERAT0R 09/17/18 Spironolactone* (Spironolactone*) 100 Mg Tablet, 100 MG PO DAILY for 30 Days, TAB Prov:TIERRA FREEMAN 09/03/18 Propranolol Hcl* (Propranolol Hcl*) 20 Mg Tablet, 20 MG PO TID for 30 Days, TAB Prov:TIERRA FREEMAN 09/03/18 Pantoprazole* (Pantoprazole*) 40 Mg Tablet.dr, 40 MG PO DAILY for 30 Days Prov:TIERRA FREEMAN 09/03/18 Thiamine* (Vitamin B-1*) 100 Mg Tablet, 100 MG PO DAILY for 30 Days, TAB Prov:NATHANIEL ESCOBAR 01/08/16 Meclizine Hcl* (Antivert*) 25 Mg Tablet, 25 MG PO TID, #60 TAB Prov:NATHANIEL ESCOBAR 01/08/16 Folic Acid* (Folic Acid*) 1 Mg Tablet, 1 MG PO DAILY for 30 Days, TAB Prov:NATHANIEL ESCOBAR 01/08/16 Ferrous Sulfate* (Ferrous Sulfate*) 325 Mg Tabec, 325 MG PO TID for 30 Days, TAB Prov:NATHANIEL ESCOBAR 01/08/16 Follow-up Plan Follow-up with outpatient lockstitch waistband setter With primary care physician Primary Care Provider Not On Staff Doctor Pending Labs Laboratory Tests Test 09/17/18 05:45 Sodium Level 140 mmol/L (135-144) Potassium Level 4.0 mmol/L (3.5-5.1) Chloride Level 111 mmol/L (97-110) Carbon Dioxide Level 23 mmol/L (21-31) Anion Gap 6 (5-13) Blood Urea Nitrogen 7 mg/dl (7-20) Creatinine 0.81 mg/dl (0.61-1.24) Est Glomerular Filtrat Rate mL/min > 60 mL/min (>60) Glucose Level 79 mg/dl (70-220) Calcium Level 8.7 mg/dl (8.4-10.2) Phosphorus Level 3.6 mg/dl (2.5-4.9) Magnesium Level 0.9 mg/dl (1.7-2.5) VIRAJ LUU NP Sep 17, 2018 11:11
[2018-09-17] MEDS ORDERED: MAGN400T28 PO (11:12)
[2018-09-17 14:00] VITALS: BP 102/56; PULSE 89; RESP 18
--- NOTE | 2018-09-17 15:24 | CONS ---
Assessment/Plan Assessment/Plan Hospital Course (Demo Recall) ID PROGRESS NOTE CURRENT ABX: DAY #10 => Doxycycline + Cipro + Diflucan + Rifaximin s/p Zosyn #5 09/14/18 0553 09/17/18 0545 24H INTERVAL SUMMARY * s/p PARACENTESIS yesterday 09/16/18: Approximately 2.7 liters of serous fluid was aspirated and discarded. The patient tolerated the procedure well without complication. * Patient is calm -- He is glad to be here in the hospital "so all the poison gets out of my body" Awake, alert, no fevers, NAD, without dyspnea * c/o persistent scrotal edema -- due to hepatic failure -- scrotum is elevated MICRO/OTHER * All Micro is negative to date. PHYSICAL EXAMINATION: GENERAL: Afebrile, VSS HEENT: AT, NC, anicteric NECK: Supple, trach midline CHEST: Equal chest rise bilaterally, without dyspnea on observation HEART: Pulse RRR ABDOMEN: Distended s/penoscrotal edema EXTREMITIES: Warm, dry SKIN: No rash, no diaphoresis ID ASSESSMENT 52 yo M admit with: 1. Decompensated alcoholic liver cirrhosis: MELD 18 , (DF on admission 24.8) * Hepatic encephalopathy- improved * Thrombocytopenia- stable * Coagulopathy * Normocytic anemia- stable * Indirect hyperbilirubinemia- resolved * Elevated AST- slightly better today EGD 09/11/18: Evidence of portal hypertension, No esophageal varices, Portal hypertensive gastropathy, Minimal distal esophagitis 2. Recurrent ascites status post paracentesis 09/08, 09/10, 09/16 3. Probable SBP per cytology 4. Penoscrotal edema due to ascites 5. MIREYA- resolved-Nephrology following (-)MRSA Nares ABX ALLERGIES: KNDA INVASIVES: PIV CURRENT ABX: DAY #10 => Doxycycline + Cipro + Diflucan + Rifaximin s/p Zosyn #5 ID RECOMMENDATIONS/PLAN: 1. s/p PARA yesterday -- continue ABX post PARA and awit GI recs == He has completed adequate course for SBP 10 DAYS 2. If no evidence recurrent SBP on recent para and/or SIRS -- will consider DC when GI concurs . Consultation Date/Type/Reason Admit Date/Time Sep 04, 2018 at 11:46 Initial Consult Date 09/07/18 Date/Time of Note DATE: 09/17/18 TIME: 15:16 Exam/Review of Systems Exam Vitals Vital Signs Date Temp Pulse Resp B/P (MAP) Pulse Ox O2 O2 Flow FiO2 Time Delivery Rate 09/17/18 98.2 85 18 100/60 98 Room Air 08:00 (73) Intake and Output 09/16/18 09/16/18 09/17/18 1515:00 23:00 07:00 IntakeIntake Total 700 ml OutputOutput Total 800 ml 900 ml 1500 ml BalanceBalance -800 ml -200 ml -1500 ml Results Result Diagram: 09/14/18 0553 09/17/18 0545 Results 24hrs Laboratory Tests Test 09/17/18 05:45 Sodium Level 140 Potassium Level 4.0 Chloride Level 111 H Carbon Dioxide Level 23 Anion Gap 6 Blood Urea Nitrogen 7 Creatinine 0.81 Est Glomerular Filtrat Rate mL/min > 60 Glucose Level 79 Calcium Level 8.7 Phosphorus Level 3.6 Magnesium Level 0.9 *L Medications Medication Current Medications Ondansetron HCl (Zofran Inj) 4 mg Q6H PRN IV NAUSEA/VOMITING; Start 09/04/18 at 16:00 Acetaminophen (Tylenol Tab) 650 mg Q6H PRN PO .PAIN 1-3 OR TEMP Last administered on 09/14/18at 20:29; Admin Dose 650 MG; Start 09/04/18 at 16:00 Pantoprazole (Protonix Tab) 40 mg DAILY@06 PO Last administered on 09/17/18at 05:59; Admin Dose 40 MG; Start 09/05/18 at 06:00 Rifaximin (Xifaxan) 550 mg BID PO Last administered on 09/17/18at 08:48; Admin Dose 550 MG; Start 09/07/18 at 13:30 Folic Acid (Folic Acid) 1 mg DAILY PO Last administered on 09/17/18at 08:49; Admin Dose 1 MG; Start 09/10/18 at 09:00 Ciprofloxacin (Cipro) 500 mg BID@06,18 PO Last administered on 09/17/18at 05:59; Admin Dose 500 MG; Start 09/11/18 at 18:00; Stop 09/25/18 at 17:59 Doxycycline Hyclate (Vibramycin) 100 mg BID PO Last administered on 09/17/18at 08:49; Admin Dose 100 MG; Start 09/11/18 at 13:00; Stop 09/25/18 at 12:59 Furosemide (Lasix) 20 mg BID DIURETICS PO Last administered on 09/17/18at 05:59; Admin Dose 20 MG; Start 09/11/18 at 18:00 Magnesium Oxide (Mag-Ox 400) 400 mg BID PO Last administered on 09/17/18at 08:49; Admin Dose 400 MG; Start 09/13/18 at 21:00 Spironolactone (Aldactone) 50 mg DAILY PO Last administered on 09/17/18at 08:50; Admin Dose 50 MG; Start 09/16/18 at 09:00 Diphenhydramine/ Zinc Oxide (Benadryl 1% Cr) 1 applic Q6 PRN TOP itching; S tart 09/16/18 at 12:00 Lactulose (Enulose) 20 gm DAILY PO ; Start 09/18/18 at 09:00 CHARLINE VINCENT NP Sep 17, 2018 15:24
[2018-09-18] MEDS ORDERED: LACTULOSE 30ML CUP PO SCH (09:00)
== END 2018-09-17 18:55 | disposition home health service (06) | DRG 432 ==
LOC: E/R 08:46 → PP2 11:46 → 5EC 09-06 21:30
PROVIDERS: ADMIT Family Medicine; ATTEND Internal Medicine
PROC: 0W9G3ZZ Drainage of Peritoneal Cavity, Percutaneous Approach (ICD-10-PCS; 2018-09-08)
PROC: 0W9G3ZZ Drainage of Peritoneal Cavity, Percutaneous Approach (ICD-10-PCS; 2018-09-10)
PROC: 30233K1 Transfusion of Nonautologous Frozen Plasma into Peripheral Vein, Percutaneous Approach (ICD-10-PCS; 2018-09-10)
PROC: 0DJ08ZZ Inspection of Upper Intestinal Tract, Via Natural or Artificial Opening Endoscopic (ICD-10-PCS; principal; 2018-09-11 17:30)
PROC: 0W9G3ZZ Drainage of Peritoneal Cavity, Percutaneous Approach (ICD-10-PCS; 2018-09-16)
DX: K70.40 Alcoholic hepatic failure without coma (principal); J18.9 Pneumonia, unspecified organism; K65.2 Spontaneous bacterial peritonitis; M87.852 Other osteonecrosis, left femur; R65.10 Systemic inflammatory response syndrome (SIRS) of non-infectious origin without acute organ dysfunction; N17.9 Acute kidney failure, unspecified; K76.6 Portal hypertension; K70.31 Alcoholic cirrhosis of liver with ascites; Z72.0 Tobacco use; D64.9 Anemia, unspecified; D69.6 Thrombocytopenia, unspecified; I10 Essential (primary) hypertension; F12.10 Cannabis abuse, uncomplicated; D63.8 Anemia in other chronic diseases classified elsewhere; N50.89 Other specified disorders of the male genital organs; R33.9 Retention of urine, unspecified; E87.5 Hyperkalemia; K31.89 Other diseases of stomach and duodenum; B37.9 Candidiasis, unspecified; K29.70 Gastritis, unspecified, without bleeding
CPT/HCPCS: 36415; 36430; 70450; 71045; 73510; 74176; 76705; 76775; 76870; 80048; 80053; 80061; 80076; 80307; 81001; 81003; 82042; 82043; 82105; 82140; 82728; 82787; 83036; 83540; 83605; 83615; 83735; 84100; 84153; 84154; 84155; 84157; 84300; 84484; 85025; 85610; 85730; 86038; 86255; 86376; 86803; 86850; 86900; 86901; 87040; 87070; 87081; 87086; 87102; 87116; 87340; 88104; 88305; 89051; 90686; 92610; 93005; 96374; 97110; 97116; 97162; 97530; A4310; J1071; J1940; J2060; J2543; J3411; J3420; J3475; J3480; J7030; J7040; J7042; P9047; P9059